=== PATIENT | female | born 1980 | race Caucasian/White ===

== ENCOUNTER 2020-08-02 17:50 | Inpatient (IN) | payer BC, SELFPAY ==
--- NOTE | ~2020-08-02 | XR_ITS ---
EXAMINATION: XR foot RT min 3V DATE: 08/02/2020 18:39 INDICATION: Right foot abscess TECHNIQUE: Dorsoplantar, lateral, and 2 oblique views of the right foot were obtained. COMPARISON: None. FINDINGS: There is plantar soft tissue swelling of the foot. Bone alignment is normal. There is no fr acture. The joint spaces are maintained. No abnormal erosion or osteopenia is identified. IMPRESSION: 1. Plantar soft tissue swelling of the foot without acute osseous abnormality. Reviewed, dictated and finalized at location A. W MACHINE SET UP OPERATOR TOOL
--- NOTE | ~2020-08-02 | MR_ITS ---
EXAMINATION: MR foot RT wo/w con DATE: 08/03/2020 10:17 INDICATION: Right foot infection TECHNIQUE: Magnetic resonance imaging (MRI) of the right fore/mid foot was performed without and with 18 mL Multihance intravenous contrast. Sequences included sagittal T1-weighted FSE, sagittal fluid s ensitive FSE STIR, coronal T2-weighted FS FSE, coronal T1-weighted FSE, axial T2-weighted FS FSE, axi al T1-weighted FSE, axial T1-weighted FS FSE and postcontrast axial and coronal T1-weighted FS FSE. COMPARISON: None FINDINGS: There are 3 regions of susceptibility artifact along the plantar aspect of the forefoot with no evide nt metallic foreign bodies on the prior radiographs likely representing sites of prior debridement/dr yoon. The largest is located plantar to the head of the first metatarsal where there is a small trino ticular region of decreased T1 signal suggesting either scarring or a decompressed abscess or bursal cavity. The second is located plantar to the head of the fifth metatarsal with suggestion of an overl minna linear surgical wound along the skin surface. Finally there is a tiny focus of susceptibility ar tifact centered at the level of the skin surface plantar to the lateral proximal metaphyseal region o f the first metatarsal. No discrete fluid-filled abscess cavities appreciated. There is edema and mil d nonmasslike enhancement throughout the soft tissues along the lateral aspect of the forefoot consis tent with cellulitis. Bone alignment is normal with normal marrow signal. No reactive edema, patholog ic marrow replacing process or fracture. Joint spaces are relatively preserved. Small joint effusion at the first metatarsophalangeal joint without surrounding reactive edema to suggest a septic arthrit is. The flexor and extensor tendons are normal. The Lisfranc ligament complex as well as the collater al ligament complexes at the metatarsophalangeal and visualized interphalangeal joints are normal. IMPRESSION: 1. 3 regions of susceptibility artifact in the plantar soft tissues of the forefoot as detailed above likely representing sites of prior surgical drainage/debridement with no evident residual radiopaque foreign bodies on the prior radiograph and no drainable abscess cavities or osteomyelitis. 2. Nonspecific small joint effusion at the first metatarsophalangeal joint without surrounding reacti ve edema to suggest a septic arthritis. Reviewed, dictated and finalized at location A. ER CARE SOCIAL WORKER IMPRESSION: 1. 3 regions of susceptibility artifact in the plantar soft tissues of the fore foot as detailed above likely representing sites of prior surgical drainage/scottie ridement with no evident residual radiopaque foreign bodies on the prior radiog raph and no drainable abscess cavities or osteomyelitis. 2. Nonspecific small joint effusion at the first metatarsophalangeal joint with out surrounding reactive edema to suggest a septic arthritis.
--- NOTE | 2020-08-02 17:58 | PC.NURSE ---
This patient, Nai Edwards, was admitted to Medical Room 253-01. Patient/family oriented to hospital policies and general routines including ID bracelet, bed and alarms, visiting hours, pain management, procedures, bathroom and other care routines, personal items, smoking policy, room service/diet, and visiting hours. Information on how to activate the Rapid Response Team has been discussed. Patient/Family are encouraged to report perceived risks to care and to ask questions if they do not understand what they are told or what they should do.
--- NOTE | 2020-08-02 18:05 | PM.IMHP ---
H&P: HPI History of Present Illness Date/Time: 08/02/20 18:05 Chief Complaint: abscess and cellulitis Narrative: Nai Edwards is a 40 year old female that presented to my office 3 weeks after last being treated in my office for painful intractable porokeratomas to the plantar aspect of the right foot. The patient had no problems after debridement of the porokeratomas. The patient states that this past Thursday July 30, 2020, she started developing redness to the top of the foot. She went to the [facility] ER and was prescribed Keflex 500mg QID. She did not respond to the antibiotics, she went on to develop an increase in redness pain and recently drainage from the plantar foot near the previously debrided porokeratomas. I performed a bedside I&D I did express scan amount of purulence from the plantar aspect of the foot and packed the wound open to allow drainage. A deep wound culture swab was obtained and sent for cultures. Prior to my seeing the patient relates constitutional symptoms including malaise and chills. The patient was admitted for MRI imaging to evaluate for deep bone infection as well as IV antibitics. Review of Systems Review of Systems: All systems reviewed & are unremarkable except as noted in HPI and below Constitutional: Comments: pain Musculoskeletal: Musculoskeletal: Reports radiating pain into limb Comments: pain and swelling to right foot PMFSH Past Medical History Medical History (Updated 08/02/20 @ 11:53 by Kimani Coleman MD) BMI 29.0-29.9,adult Callus of foot Candidiasis of genitalia in female Cellulitis of right foot Encounter for screening for other viral diseases Encounter for wellness examination in adult Family History Family History (System 05/24/19 @ 10:56 by Melanie Branch) Grandparent Diabetes mellitus Family history of malignant neoplasm Family history of malignant neoplasm of breast Father Hypertension Mother Patient's mother is in good health Sibling Patient's brother is in good health Social History Social History Years smoked: 20 Smoking status: Current every day smoker Tobacco type: cigarettes Alcohol intake: current Drinks per week: 6 Substance use: never Substance use type: does not use Meds Home Medications and Allergies Home Medications Medication Instructions Recorded Confirmed Type alprazolam 0.25 mg tablet 0.25 mg PO TID PRN #30 tablet 02/27/20 08/02/20 Rx zolpidem 5 mg tablet 5 mg PO . q.h.s. PRN #30 tablet 02/27/20 08/02/20 Rx bupropion HCl 150 mg 24 hr tablet, 150 mg PO QAM #90 tablet 04/02/20 08/02/20 Rx extended release escitalopram oxalate 10 mg tablet 10 mg PO DAILY #30 tablet 07/31/20 08/02/20 Rx dextroamphetamine-amphetamine 20 mg PO DAILY PRN 08/02/20 08/02/20 History [Adderall] fluconazole 150 mg tablet 150 mg PO DAILY #2 tablet 08/02/20 08/02/20 Rx Allergies Allergy/AdvReac Type Severity Reaction Status Date / Time amoxicillin Allergy Unknown Nausea Verified 05/24/19 10:56 Penicillins Allergy Unknown Rash Verified 05/24/19 10:56 Exam Extrem: Ankle/foot/toe images: 1. 3cm incision plantar to the fifth metatarsal head tracking medially to the plantar subcutaneus region of the central aspect of the midfoot. Erythema and calor present to the dorsal lateral and plantar lateral forefoot and centralmidfoot Assessment and Plan Additional Plan Abscess/cellulitis to the right foot s/p in office I&D packed open at approximately 5pm late this afternoon, 08/02/2020 Will order repeat deep wound culture and sensitivities by floor nurses Ordered CBC with diff, ESR, CRP daily Empirical IV antibiotics will be necessary until cellulitis fully resolves MRI will be ordered to assess extent of infection I will round on the patient tomorrow morning to evaluate improvement/read MRI report Appreciate hospitalist help with medical management, Dr. Day
[2020-08-02 18:16] VITALS: BMI 29.6
[2020-08-02 18:21] LABS: Basophils Percent Auto 0.4 % (0.2-1.2); Eosinophils Absolute Auto 0.2 K/mm3 (0-0.3); Eosinophils Percent Auto 1.4 % (0-4.4); Hematocrit 44.6 % (37.0-47.0); Hemoglobin 15.2 g/dL (12.0-15.0); Immature Granulocyte Absolute 0.03 K/mm3 (0.00-0.031); Immature Granulocyte Percent A 0.3 % (0-0.5); Lymphocytes Absolute Auto 2.66 K/mm3 (0.9-3.2); Lymphocytes Percent Auto 23.4 % (18.3-44.2); Mean Corpuscular HGB Conc 34.1 g/dl (32-36); Mean Corpuscular Hemoglobin 32.1 pg (26-34); Mean Corpuscular Volume 94.1 fl (80-100); Mean Platelet Volume 9.7 fl (7.4-10.4); Monocytes Absolute Auto 0.6 K/mm3 (0.1-0.6); Monocytes Percent Auto 5.1 % (2.6-8.5); Neutrophils Absolute Auto 7.9 K/mm3 (1.3-6.7); Neutrophils Percent Auto 69.4 % (45.5-73.1); Platelet Count Result 274 k/mm3 (150-375); Red Blood Count 4.74 M/mm3 (4.2-5.4); Red Cell Distribution Width 12.5 % (11.5-14.5); White Blood Count 11.4 K/mm3 (4.5-10.0)
--- NOTE | 2020-08-02 18:30 | PM.IMHP ---
H&P: HPI History of Present Illness Date/Time: 08/02/20 18:30 Chief Complaint: Right foot wound. Narrative: This is a 40-year-old female who is being directly admitted from Dr. Gallego office for treatment of a right foot infection. She has had a callus on the plantar aspect of her right 5th metatarsal head for quite some time and over the last month or so it ?has been giving me problems.? She was seen by Dr. Gallego sometime last month and it sounds as though the callus was shaved and tended to at that time. Due to sensitivity in the area with standing, she wore a metatarsal bar to cushion the area which seemed to help however caused a lot of sweating about the foot. Sometime last week she began having increasing discomfort at the site with erythema and edema that quickly spread onto the dorsum of the foot. She was prescribed cephalexin after a visit to the emergency department at [facility] in [place] on 07/31/2020. The erythema has improved significantly however over the last day or so she has developed increasing discomfort on the ball of the right foot. She was seen in the office today and the callus was lanced with the expression of a pretty significant amount of purulence drainage, prompting her admission today. She denies fever, chills, and sweats. No nausea or vomiting. No history of MRSA or diabetes. Review of Systems Review of Systems: Narrative: Twelve systems were reviewed with pertinent positives and negatives as per HPI. Except as documented, all other systems were reviewed and are negative. [facility] Past Medical History Medical History Anxiety Attention deficit disorder Benign schwannoma Left foot. Tobacco use Surgical History Surgical History (Updated 08/02/20 @ 21:34 by Emily Gordon PA-C) History of left knee surgery X3; OATS procedure and arthroscopy. Family History Family History Grandparent Diabetes mellitus Family history of malignant neoplasm Family history of malignant neoplasm of breast Father Hypertension Mother Patient's mother is in good health Sibling Patient's brother is in good health Social History Social History (Updated 08/02/20 @ 21:34 by Emily Gordon PA-C) Social History: The patient lives in [place] with her 10-year-old daughter. She works at the [employer] in [place]. Smokes about 5 cigarettes a day and has for 20 years. Consumes 2 alcoholic beverages a week. No illicit substance use. She designates her brother Miguel Flores as her surrogate decision maker and she wishes to be a full code. Years smoked: 20 Smoking status: Current every day smoker Tobacco type: cigarettes Alcohol intake: current Drinks per week: 2 Substance use: never Substance use type: does not use Gender identity (if verbalized by the patient): Female Spiritual care concerns: Yes Meds Home Medications and Allergies Home Medications Medication Instructions Recorded Confirmed Type alprazolam 0.25 mg tablet 0.25 mg PO TID PRN #30 tablet 02/27/20 08/02/20 Rx zolpidem 5 mg tablet 5 mg PO . q.h.s. PRN #30 tablet 02/27/20 08/02/20 Rx bupropion HCl 150 mg 24 hr tablet, 150 mg PO QAM #90 tablet 04/02/20 08/02/20 Rx extended release escitalopram oxalate 10 mg tablet 10 mg PO DAILY #30 tablet 07/31/20 08/02/20 Rx dextroamphetamine-amphetamine 20 mg PO DAILY PRN 08/02/20 08/02/20 History [Adderall] fluconazole 150 mg tablet 150 mg PO DAILY #2 tablet 08/02/20 08/02/20 Rx Allergies Allergy/AdvReac Type Severity Reaction Status Date / Time amoxicillin [From Augmentin] Allergy Vomiting Verified 08/02/20 18:27 clavulanic acid Allergy Vomiting Verified 08/02/20 18:27 [From Augmentin] Exam Narrative: Exam Narrative: General: Well-developed female sitting up in bed in no distress. Weight: 91 kg. BMI: 29.6. HEENT: PERRL, EOMI. Sclerae anicteric. Oral mu
[2020-08-02 18:36] LABS: CRP 1.5 mg/dL (<1.0)
[2020-08-02 18:49] LABS: Erythrocyte Sedimentation Rate 16 mm/hr (0-20)
[2020-08-02 18:50] LABS: Alanine Aminotransferase 30 U/L (4-35); Albumin Level 4.4 g/dL (3.5-5.1); Alkaline Phosphatase 70 U/L (38-126); Anion Gap 6 mmol/L (8-16); Aspartate Amino Transferase 28 U/L (14-36); Bilirubin,Total 0.7 mg/dL (0.2-1.3); Blood Urea Nitrogen 17 mg/dL (7-17); Calcium 8.9 mg/dL (8.4-10.2); Carbon Dioxide 28 mmol/L (22-30); Chloride 103 mmol/L (98-107); Estimated Glomerular Filt Rate > 60; Glucose 93 mg/dL (65-105); Potassium 3.8 mmol/L (3.4-5.0); Sodium 137 mmol/L (137-145)
[2020-08-02] MEDS: FLUCONAZOLE 100 MG TABLET PO (20:01)
[2020-08-02] MEDS: HYDROcodone/acetaminophen (*CRX) 5-325 MG TABLET 1 TAB PO (20:08)
[2020-08-02 22:00] VITALS: BP 116/60; PULSE 96; RESP 20; TEMP 36.4; O2SAT 98
[2020-08-02] MEDS: MORPHINE SULFATE (*CRX) 2 MG/ML INJ IV PUSH (23:19)
[2020-08-03 06:00] VITALS: BP 107/58; PULSE 71; RESP 21; TEMP 36.3; O2SAT 100
[2020-08-03] MEDS: buPROPion HCL XL (24 HR) 150 MG TABCR PO (08:29)
[2020-08-03] MEDS: ESCITALOPRAM OXALATE 10 MG TABLET PO (08:29)
[2020-08-03] MEDS: HYDROcodone/acetaminophen (*CRX) 5-325 MG TABLET 1 TAB PO (08:29)
[2020-08-03 09:11] LABS: Basophils Percent Auto 0.5 % (0.2-1.2); Eosinophils Absolute Auto 0.3 K/mm3 (0-0.3); Eosinophils Percent Auto 4.2 % (0-4.4); Hematocrit 40.6 % (37.0-47.0); Hemoglobin 13.6 g/dL (12.0-15.0); Immature Granulocyte Absolute 0.02 K/mm3 (0.00-0.031); Immature Granulocyte Percent A 0.3 % (0-0.5); Lymphocytes Absolute Auto 2.08 K/mm3 (0.9-3.2); Lymphocytes Percent Auto 31.3 % (18.3-44.2); Mean Corpuscular HGB Conc 33.5 g/dl (32-36); Mean Corpuscular Hemoglobin 31.6 pg (26-34); Mean Corpuscular Volume 94.4 fl (80-100); Mean Platelet Volume 9.7 fl (7.4-10.4); Monocytes Absolute Auto 0.5 K/mm3 (0.1-0.6); Monocytes Percent Auto 6.9 % (2.6-8.5); Neutrophils Absolute Auto 3.8 K/mm3 (1.3-6.7); Neutrophils Percent Auto 56.8 % (45.5-73.1); Platelet Count Result 242 k/mm3 (150-375); Red Cell Distribution Width 12.4 % (11.5-14.5); White Blood Count 6.7 K/mm3 (4.5-10.0)
[2020-08-03 09:27] LABS: Anion Gap 2 mmol/L (8-16); Blood Urea Nitrogen 13 mg/dL (7-17); CRP 1.1 mg/dL (<1.0); Calcium 8.5 mg/dL (8.4-10.2); Carbon Dioxide 31 mmol/L (22-30); Chloride 103 mmol/L (98-107); Estimated CRCL calculation 111 ml/min; Estimated Glomerular Filt Rate > 60; Glucose 101 mg/dL (65-105); Potassium 4.1 mmol/L (3.4-5.0); Sodium 136 mmol/L (137-145)
[2020-08-03] MEDS: MORPHINE SULFATE (*CRX) 2 MG/ML INJ IV PUSH ×2 (12:54→23:06)
[2020-08-03 14:00] VITALS: BP 107/61; PULSE 71; RESP 14; TEMP 36.5; O2SAT 97
[2020-08-03] MEDS: SILVERGEL (ELTA) 45 ML 1 APPLIC TOPICAL (14:10)
--- NOTE | 2020-08-03 15:07 | WPDPN ---
Progress Note: A&P Additional Plan Cellulitis nearly fully resoled- MRI says no abscess, no septic joint, no osteomyelitis. Recommend IV antibiotic until discharged tomorrow morning. The I&D site already almost epithelialized. No drainage noted. No fluctuance. Redressed with Kerlix roll and skin tape. Will be stable for discharge from podiatry standpoint with oral antibiotics, awaiting deep wound culture and sensitivity results from [facility] department. Dr. Gallego Objective Data Vital Signs Vital Signs: Vital Signs - 24 hr 08/02/20 22:00 08/03/20 06:00 08/03/20 14:00 Temperature 36.4 C 36.3 C L 36.5 C Pulse Rate 96 71 71 Respiratory Rate 20 21 H 14 Blood Pressure 116/60 107/58 L 107/61 Pulse Oximetry 98 100 97 Intake/Output Intake/Output: Intake & Output 07/31/20 08/01/20 08/02/20 08/03/20 23:59 23:59 23:59 23:59 Intake Total 550 1510 Balance 550 1510 Meds/Results Medications: Active Medications Generic Name Dose Route Start Last Admin Trade Name Freq PRN Reason Stop Dose Admin Acetaminophen 650 mg 08/02/20 18:18 Acetaminophen 325 Mg Tablet PO Q6H PRN Mild Pain (1-3) or Fever Hydrocodone Bitart/Acetaminophen 1 tab 08/02/20 18:18 08/03/20 08:29 Hydrocodone/Acetaminophen (*Crx) 5-325 Mg Tablet PO 1 tab Q6H PRN Administration Pain Rated 4-6 Bupropion HCl 150 mg 08/03/20 09:00 08/03/20 08:29 Bupropion Hcl Xl (24 Hr) 150 Mg Tabcr PO 150 mg QAM BONILLA Administration Escitalopram Oxalate 10 mg 08/03/20 09:00 08/03/20 08:29 Escitalopram Oxalate 10 Mg Tablet PO 10 mg DAILY BONILLA Administration Cefazolin Sodium 1 gm in 50 mls @ 100 mls/hr 08/02/20 22:00 08/03/20 07:33 Ancef 1 Gm/D5w 50 Ml Pm IVPB Infused Q8H BONILLA Infusion Vancomycin HCl 1,500 mg in 500 mls @ 333.333 mls/hr 08/03/20 08:00 08/03/20 10:01 Vancomycin 1,500 Mg/D5w 500 Ml IVPB Infused Q12H BONILLA Infusion Morphine Sulfate 2 mg 08/02/20 18:18 08/03/20 12:54 Morphine Sulfate (*Crx) 2 Mg/Ml Inj IV PUSH 2 mg Q4H PRN Administration Pain Rated 7-10 Silver Nitrate 1 applic 08/03/20 09:00 08/03/20 14:10 Silvergel (Elta) 45 Ml TOPICAL 1 applic DAILY BONILLA Administration Radiology Results: ITS Impressions Foot X-Ray 08/02/20 20:44 IMPRESSION: 1. Plantar soft tissue swelling of the foot without acute osseous abnormality. Foot MRI 08/03/20 10:19 IMPRESSION: 1. 3 regions of susceptibility artifact in the plantar soft tissues of the forefoot as detailed above likely representing sites of prior surgical drainage/debridement with no evident residual radiopaque foreign bodies on the prior radiograph and no drainable abscess cavities or osteomyelitis. 2. Nonspecific small joint effusion at the first metatarsophalangeal joint without surrounding reactive edema to suggest a septic arthritis. Labs Labs: Laboratory Results - last 24 hr 08/02/20 08/02/20 08/02/20 18:16 18:16 18:16 WBC 11.4 H RBC 4.74 Hgb 15.2 H Hct 44.6 MCV 94.1 MCH 32.1 MCHC 34.1 RDW 12.5 Plt Count 274 MPV 9.7 Immature Gran % (Auto) 0.3 Neut % (Auto) 69.4 Lymph % (Auto) 23.4 Bowie % (Auto) 5.1 Eos % (Auto) 1.4 Baso % (Auto) 0.4 Lymph # (Auto) 2.66 Bowie # (Auto) 0.6 Eos # (Auto) 0.2 Baso # (Auto) 0.0 Abs Immat Gran (auto) 0.03 Absolute Neuts (auto) 7.9 H Absolute Nucleated RBC 0.0 Nucleated RBC % 0.0 ESR 16 Sodium 137 Potassium 3.8 Chloride 103 Carbon Dioxide 28 Anion Gap 6 L BUN 17 Creatinine 0.90 Estim Creat Clear Calc Not Reportable Estimated GFR > 60 Glucose 93 Calcium 8.9 Total Bilirubin 0.7 AST 28 ALT 30 Alkaline Phosphatase 70 C-Reactive Protein 1.5 H Total Protein 8.0 Albumin 4.4 08/03/20 08/03/20 08:53 08:53 WBC 6.7 RBC 4.30 Hgb 13.6 Hct 40.6 MCV 94.4 MCH 31.6 MCHC
--- NOTE | 2020-08-03 15:17 | PM.IMPN ---
Progress Note: A&P Assessment and Plan (1) Cellulitis of right foot: Code(s): L03.115 - Cellulitis of right lower limb Status: Acute Assessment and Plan: She developed a callus of her right foot at lateral aspect of the 5th metatarsal. She then developed erythema and edema of the dorsum of the foot. She initially was evaluated at ED in [place] and started on PO Keflex with no improvement. She was evaluated by Dr. Gallego as an outpatient. Her callus was lanced and purulent fluid was expressed. She was then directly admitted to this facility for IV antibiotics. Her cellulitis has essentially resolved and there is no evidence of edema, erythema, or warmth to the dorsum of the foot. MRI of the right foot did not demonstrate any evidence of abscess or osteomyelitis. Continue IV Ancef and vancomycin appreciate podiatry consult Continue local wound care with silver gel application daily; wound care evaluation appreciated analgesics available as needed for pain (2) Callus of foot: Code(s): L84 - Corns and callosities Status: Acute Assessment and Plan: As above. She had a bedside I&D by Dr. Gallego in which prelim fluid was expressed and the wound was packed. A deep wound culture was obtained at that time. Continue IV antibiotics as above. Plan for discharge tomorrow if continued improvement with PO antibiotics. appreciated podiatry consult. She will need to follow-up as an outpatient in the following week. discussed case with Dr. Gallego via phone and he will monitor her wound cultures and de-escalate antibiotics accordingly (3) Anxiety: Code(s): F41.9 - Anxiety disorder, unspecified Status: Inactive Assessment and Plan: mood is stable at this time. Continue bupropion and escitalopram (4) Tobacco use: Code(s): Z72.0 - Tobacco use Status: Acute Assessment and Plan: patient reports smoking 4-5 cigarettes daily. We had a long discussion regarding the importance of smoking cessation, especially to promote wound healing. I educated her on smoking cessation for 6 minutes. She understands and agrees with need for smoking cessation. She declines nicotine patch. Subjective Date/time seen: 08/03/20 15:17 Interval history: Date of service: 08/03/2020 Nai Edwards is a 40-year-old female with history of continued tobacco abuse, anxiety, and ADD HD who is seen in follow-up for right foot wound. She is doing fairly well at this time. at the time of my encounter, she was also being seen by wound care and having her wound probed. This caused her a significant amount of pain, however she stated that overall, her foot pain was rated 5/10 prior to having the wound probed. she thinks that the area is improving. She denies any further drainage. She states that her erythema and edema have resolved entirely. She denies fever, chills, nausea, vomiting, diarrhea. No headaches, body aches, dizziness, lightheadedness, abdominal pain, chest pain, palpitations, shortness of breath, or cough. She has been eating well. Denies any urinary symptoms. Review of Systems Review of Systems: All systems reviewed & are unremarkable except as noted in HPI and below Exam Narrative: Exam Narrative: Ms. Edwards is A well-nourished, well-appearing 40-year-old female who is lying supine in bed. she appears comfortable and is in NARD. HR 71, BP 107/88, R 21, T 97.3?, 100% on room air Neuro: awake, alert and oriented x4, speech clear, no focal neuro deficits noted HEENMT: normocephalic, atraumatic, EOMI, sclerae anicteric, moist oral mucosa, tongue midline, nares patent Neck: supple, no lymphadenopathy Respiratory: clear to auscultation bilaterally, nonlabored breathing Cardio: regular rate, regular rhythm with S1-S2 Abdomen: nondistended, normoactive bowel sounds, soft, nontender to palpation, no rigidity or guarding Extremities: no ed
[2020-08-03 20:00] VITALS: BP 118/65; PULSE 77; RESP 18; TEMP 36.4; O2SAT 98
[2020-08-03] MEDS: FLUCONAZOLE 100 MG TABLET PO (23:03)
[2020-08-04 04:00] VITALS: BP 101/53; PULSE 73; RESP 18; TEMP 36.2; O2SAT 99
[2020-08-04 07:09] LABS: Hematocrit 42.8 % (37.0-47.0); Hemoglobin 14.3 g/dL (12.0-15.0); Mean Corpuscular HGB Conc 33.4 g/dl (32-36); Mean Corpuscular Hemoglobin 31.8 pg (26-34); Mean Corpuscular Volume 95.1 fl (80-100); Mean Platelet Volume 9.8 fl (7.4-10.4); Platelet Count Result 248 k/mm3 (150-375); Red Cell Distribution Width 12.2 % (11.5-14.5); White Blood Count 6.8 K/mm3 (4.5-10.0)
[2020-08-04 07:59] LABS: Vancomycin Trough 10.6 ug/mL (10.0-20.0)
[2020-08-04] MEDS: buPROPion HCL XL (24 HR) 150 MG TABCR PO (08:40)
[2020-08-04] MEDS: ESCITALOPRAM OXALATE 10 MG TABLET PO (08:40)
[2020-08-04 08:57] LABS: Anion Gap 7 mmol/L (8-16); Blood Urea Nitrogen 18 mg/dL (7-17); CRP 0.7 mg/dL (<1.0); Calcium 8.1 mg/dL (8.4-10.2); Carbon Dioxide 25 mmol/L (22-30); Chloride 103 mmol/L (98-107); Estimated CRCL calculation 127 ml/min; Estimated Glomerular Filt Rate > 60; Glucose 105 mg/dL (65-105); Potassium 4.4 mmol/L (3.4-5.0); Sodium 135 mmol/L (137-145)
--- NOTE | 2020-08-04 09:33 | PM.DS ---
DS: Admitting Diagnosis Admitting Diagnosis Admitting Diagnosis: Right foot cellulitis DS: Discharge Diagnosis Discharge Diagnosis (1) Cellulitis of right foot: Code(s): L03.115 - Cellulitis of right lower limb Status: Acute Assessment and Plan: She developed a callus of her right foot at lateral aspect of the 5th metatarsa quite sometime ago. Approximately 1 week prior to admission, she then developed erythema and edema of the dorsum of the foot. She initially was evaluated at ED in [place] on 08/02 and started on PO Keflex with no improvement. She was evaluated by Dr. Gallego as an outpatient on 08/04 who performed a bedside I&D. Purulent fluid was expressed and wound was packed. She was then directly admitted to this facility for IV antibiotics. Her cellulitis resolved and she had no evidence of edema, erythema, or warmth to the dorsum of the foot. MRI of the right foot did not demonstrate any evidence of abscess or osteomyelitis. she was started on IV Ancef and vancomycin. She was seen in consultation by [facility] [place], Dr. Gallego. wound care team evaluated and recommended application of daily silver gel. She will continue p.o. antibiotics as an outpatient to complete 10 days of Levaquin 750 mg daily and clindamycin 300 mg q8h, per Dr. Gallego recommendations. He will await deep wound culture which was performed in his office and deescalate antibiotics accordingly. (2) Callus of foot: Code(s): L84 - Corns and callosities Status: Acute Assessment and Plan: As above. (3) Anxiety: Code(s): F41.9 - Anxiety disorder, unspecified Status: Inactive Assessment and Plan: Mood remained stable. Continue bupropion and escitalopram (4) Tobacco use: Code(s): Z72.0 - Tobacco use Status: Acute Assessment and Plan: Patient reports smoking 4-5 cigarettes daily. We had a long discussion regarding the importance of smoking cessation, especially to promote wound healing. I educated her on smoking cessation for 6 minutes. She understands and agrees with need for smoking cessation. She declined nicotine patch. DS: Summary Hospital Course Reason for hospitalization: right foot cellulitis Hospital Course: date of admission: 08/02/2020 date of discharge: 08/04/2020 Nai Edwards is a 40-year-old female with history of continued tobacco abuse, anxiety, and ADHD who was directly admitted to the hospitalist service at the direction of [facility] [place], Dr. Gallego, for treatment of right foot cellulitis. Upon arrival, her vital signs were stable, she had minimal leukocytosis, CRP 1.5, and electrolytes stable. her foot x-ray demonstrated plantar soft tissue swelling of the foot without acute osseous abnormality, and her foot MRI showed 3 regions of susceptibility artifact in the plantar soft tissues of the forefoot representing prior drainage without evidence of foreign body, abscess, or osteomyelitis. Please see above for further details. She had significant improvement following IV antibiotics. her pain resolved and she began feeling much better. I discussed the case with Dr. Gallego who felt that transition to p.o. antibiotics would be appropriate. Given her overall improvement, she was determined to no longer require inpatient care and felt to be stable for discharge. We discussed her antibiotic therapy at length. We also discussed worrisome signs and symptoms for which to return and she was educated on her medications. She will need to follow-up with Dr. Gallego next week. She will do light duty at work to limit pressure on the foot. Status at Discharge Functional status at discharge: independent ambulation Overall status at discharge: patient is back to baseline Time Spent with Patient Time attestation: Total time spent providing and/or coordinating discharge services: 45 minutes Time spent: Greater than 30 minutes Exam Narrative: Exam Narrativ
== END 2020-08-04 10:15 | disposition home or self-care (01) | DRG 603 ==
PROVIDERS: Physician Assistant; Admitting Provider Internal Medicine; PCP Podiatrist Foot & Ankle Surgery; Visit Provider Physician Assistant
DX: L03.115 Cellulitis of right lower limb (principal); F41.9 Anxiety disorder, unspecified; F98.8 Other specified behavioral and emotional disorders with onset usually occurring in childhood and adolescence; Z72.0 Tobacco use; L84 Corns and callosities
CPT/HCPCS: 36415; 73630; 73720; 80048; 80053; 80202; 85025; 85027; 85652; 86140; A9270; A9577; J0690; J2270; J3370

== ENCOUNTER 2020-08-08 15:59 | Inpatient (IN) | payer BC, SELFPAY ==
[2020-08-08] VITALS (11 sets, daily range): BP systolic 111–133; BP diastolic 60–84; PULSE 88–112; RESP 12–20; TEMP 36.1–37; O2SAT 96–100; BMI 29.4
--- NOTE | 2020-08-08 11:02 | PC.NURSE ---
SPOKE WITH PT BY PHONE REGARDING SURGERY TODAY. PT DENIES CHANGE IN HEALTH STATUS SINCE DISCHARGED FROM HERE ON 08/04/20 EXCEPT FOR WORSENING WOUND TO RIGHT FOOT.
[2020-08-08] MEDS: LACTATED RINGERS 1,000 ML 30 ML IV CONT (13:05)
--- NOTE | 2020-08-08 13:20 | WPDANESEPPF ---
Anes - Initial Pre Proc Eval Procedure: Operation Date: 08/08/20 14:00 Proposed Procedures p Incision And Drainage Right Foot - Jose Gallego JR, MD Date/Time: 08/08/20 13:20 Surgeon: Jose Gallego JR, MD Pre Op Diagnosis: Abscess Right Foot Patient Data Age: 40 Gender: F Height: 1.75 m Weight: 90.4 kg Last Vital Signs Temp 36.9 C 08/08/20 12:19 Pulse 112 H 08/08/20 12:19 Resp 20 08/08/20 12:19 BP 123/75 08/08/20 12:19 Pulse Ox 100 08/08/20 12:19 Allergies Allergy/AdvReac Type Severity Reaction Status Date / Time amoxicillin [From Augmentin] AdvReac Mild Vomiting Verified 08/08/20 12:55 clavulanic acid AdvReac Mild Vomiting Verified 08/08/20 12:55 [From Augmentin] Home Medications Medication Instructions Recorded Confirmed Type alprazolam 0.25 mg tablet 0.25 mg PO TID PRN #30 tablet 02/27/20 08/08/20 Rx zolpidem 5 mg tablet 5 mg PO . q.h.s. PRN #30 tablet 02/27/20 08/08/20 Rx bupropion HCl 150 mg 24 hr tablet, 150 mg PO QAM #90 tablet 04/02/20 08/08/20 Rx extended release escitalopram oxalate 10 mg tablet 10 mg PO DAILY #30 tablet 07/31/20 08/08/20 Rx dextroamphetamine-amphetamine 20 mg PO DAILY PRN 08/02/20 08/08/20 History [Adderall] Saccharomyces boulardii [Daily 250 mg PO BID #30 cap 08/04/20 08/08/20 Rx Probiotic (S. boulardii)] clindamycin HCl 300 mg PO Q8H #30 cap 08/04/20 08/08/20 Rx levofloxacin 750 mg PO DAILY #10 tablet 08/04/20 08/08/20 Rx silver [Silver-Sept] 1 applic TOPICAL DAILY #45 g 08/04/20 08/08/20 Rx Patient hx anesthesia problems: none Family hx anesthesia problems: none PMFSH Past Medical History Medical History Anxiety Attention deficit disorder Benign schwannoma Left foot. Tobacco use Surgical History Surgical History (Updated 08/02/20 @ 21:34 by Emily Gordon PA-C) History of left knee surgery X3; OATS procedure and arthroscopy. Family History Family History Grandparent Diabetes mellitus Family history of malignant neoplasm Family history of malignant neoplasm of breast Father Hypertension Mother Patient's mother is in good health Sibling Patient's brother is in good health Social History Social History (Updated 08/02/20 @ 21:34 by Emily Gordon PA-C) Social History: The patient lives in [place] with her 10-year-old daughter. She works at the [employer] in [place]. Smokes about 5 cigarettes a day and has for 20 years. Consumes 2 alcoholic beverages a week. No illicit substance use. She designates her brother Miguel Flores as her surrogate decision maker and she wishes to be a full code. Years smoked: 20 Smoking status: Current every day smoker Tobacco type: cigarettes Alcohol intake: current Drinks per week: 2 Substance use: never Substance use type: does not use Gender identity (if verbalized by the patient): Female Spiritual care concerns: Yes Anes - Ranjana Final PreProcedure Day of Procedure 08/08/20 13:20 Patient weight: overweight Heart: regular rate and rhythm Lungs: clear to auscultation and normal air movement Airway: Mallampati scale class II Neurological: alert and oriented Last oral intake: >/= 8 hours ASA classification: II Emergent: no Anesthetic plan: proceed Anesthesia type and monitoring: general LMA and standard monitoring Informed Consent: The patient's anesthetic plan and its attendant risks and benefits were discussed with the patient/family/POA. Questions were solicited and answers provided to the satisfaction of the patient/family/POA.
--- NOTE | 2020-08-08 13:49 | WPDHPUPDATE1 ---
History and Physical Update Update Date/Time: 08/08/20 13:49 History and Physical has been reviewed, including an updated exam of the patient. There are NO changes in the patient's condition. Risks, benefits, and alternatives have been discussed and questions answered. Patient agrees to proceed with procedure.
[2020-08-08] MEDS: CLINDAMYCIN 900 MG/D5W 50 ML 900 MG/50 ML PIGGYBACK 50 MG IVPB (14:14)
[2020-08-08] MEDS: fentaNYL CITRATE INJ (*CRX) 100 MCG/2 ML VIAL 25 MCG IV PUSH ×5 (15:05→15:47)
--- NOTE | 2020-08-08 15:05 | SUR.OPER ---
1 gram Vancomycin powder added to cement beads for use on sterile field
[2020-08-08] MEDS: LIDOCAINE HCL 2% LOCAL INJ 20 ML VIAL INFILTRATE (15:07)
--- NOTE | 2020-08-08 15:15 | SUR.PHASEI ---
1513 - Dr. Gallego called in regards to pt's gram stain results. no orders received at this time.
--- NOTE | 2020-08-08 16:05 | PC.NURSE ---
Patient transferred from OR to room 343. Patient oriented to room policies. Belongings with patient.
--- NOTE | 2020-08-08 16:26 | P.OP_ITS ---
Procedure Note - Detailed Date of procedure: 08/08/20 Pre-op diagnosis: Abscess Right Foot Post-op diagnosis: same Procedure performed: Incision and drainage right foot to subcutaneous layer Implants: [employer] PMMA beads Anesthesia: MAC and local Surgeon: Jose Gallego JR, DPM Estimated blood loss (mL): 1 Drains: No Packing: Yes Pathology: yes (1. Deep wound culture swab sent for aerobic and anaerobic culture and sensitivity with stat Gram stain 2. Encapsulated cyst like lesion resected and sent for gross and histo) Complications: No immediate complications Condition: stable Disposition: observation Findings: Under mild sedation, the patient was brought to the operating room, placed on the operating table in the supine position. A pneumatic ankle tourniquet was placed about the patient's ankle. Following general anesthesia, I performed a proximal fifth metatarsal Rocha Block. The foot was then scrubbed, prepped, and draped in the usual aseptic manner. An Esmarch bandage was then used to examine the patient's foot and pneumatic ankle tourniquet was then inflated. Surgery began in the following manner. Attention was directed to the plantar aspect of the fifth metatarsal head of the foot where two converging semi elliptical incisions were made about the healed incision made previously. The incision was approximately 3cm in length. The incision was continued deep down through the subcutaneous tissues using sharp and blunt dissection. All bleeders were cauterized as necessary. I continued my dissection laterally where an encapsulated cyst like mass was noted with viscous white drainage expressed, approximately 1cc of this exudate was evacuated. The entire cyst was excised and sent for gross and histopathology. I did take a deep wound culture swab and sent for aerobic and anaerobic culture and sensitivity. No remaining necrotic tissue was noted, no other abscess was noted. The wound only extended to the subcutaneous layer only. I did use pulsed lavage to flush the wound with 3L of sterile saline. Next, I packed the wound with [employer] antibiotics beads mixed with 1g of Vancomycin. I did leave the incision site open and packed with 1/2 Iodoform gauze. I dressed with adaptic, 4x4 gauze, Kerlix and MICHAEL Wrap. The pneumatic ankle tourniquet was then deflated and a prompt hyperemic response noted to all digits of the affected foot. A surgical shoe was then applied. The patient did very well with the procedure and the anesthesia. The patient was transferred to the recovery room with vital signs stable and vascular status intact to all toes of the affected foot. The patient will be admitted for IV antibiotcs and for an infectious disease consult to help with antibiotic management. The patient will follow the following instructions: 1. Keep the dressing clean, dry, and intact. Use a cast protector bag with showers. 2. The patient should use a surgical shoe for ambulation postoperatively. 3. The patient should be on bedrest with bathroom priviliges and elevate the affected foot when at rest. 4. IDr. Gallego, will change the dressing the day after surgery.
[2020-08-08] MEDS: SACCHAROMYCES BOULARDII 250 MG CAPSULE PO (17:11)
[2020-08-08] MEDS: HYDROcodone/acetaminophen (*CRX) 7.5-325 MG TABLET 1 TAB PO (17:11)
[2020-08-08 17:33] LABS: CRP 0.7 mg/dL (<1.0)
[2020-08-08 17:39] LABS: Erythrocyte Sedimentation Rate 10 mm/hr (0-20)
--- NOTE | 2020-08-08 18:00 | PM.IMHP ---
H&P: HPI History of Present Illness Date/Time: 08/08/20 18:00 Chief Complaint: Right foot abscess. Narrative: This is a 40-year-old female who is being directly admitted to the hospital from PACU status post incision and drainage of a right foot infection with a resection of an capsulated cyst-like lesion. She is known to myself and the hospitalist service with a recent admission on 08/02/2020 at which time she was treated for a right foot infection which developed not long after having a callus shaved off the foot. After receiving 2 days of IV antibiotics she was discharged home with levofloxacin as her wound culture reportedly grew out E coli. She seemed to be doing well up until the last day or so when she began having increasing pain on the ball of the right foot. In the last 24 hour she has also noticed a small, raised erythematous area which has popped up in the same region, very tender to palpation. She is now status post incision and drainage per Dr. Gallego as detailed above. She received a block during surgery and does not have any significant pain at this time. no fever, chills, or sweats today. Appetite has been good. No nausea or vomiting. Review of Systems Review of Systems: Narrative: Twelve systems were reviewed with pertinent positives and negatives as per HPI. Except as documented, all other systems were reviewed and are negative. [facility] Past Medical History Medical History Anxiety Attention deficit disorder Benign schwannoma Left foot. Tobacco use Surgical History Surgical History History of left knee surgery X3; OATS procedure and arthroscopy. Family History Family History Grandparent Diabetes mellitus Family history of malignant neoplasm Family history of malignant neoplasm of breast Father Hypertension Mother Patient's mother is in good health Sibling Patient's brother is in good health Social History Social History Social History: The patient lives in [place] with her 10-year-old daughter. She works at the [employer] in [place]. Smokes about 5 cigarettes a day and has for 20 years. Consumes 2 alcoholic beverages a week. No illicit substance use. She designates her brother Miguel Flores as her surrogate decision maker and she wishes to be a full code. Years smoked: 20 Smoking status: Current every day smoker Tobacco type: cigarettes Alcohol intake: current Drinks per week: 2 Substance use: never Substance use type: does not use Gender identity (if verbalized by the patient): Female Spiritual care concerns: Yes Meds Home Medications and Allergies Home Medications Medication Instructions Recorded Confirmed Type alprazolam 0.25 mg tablet 0.25 mg PO TID PRN #30 tablet 02/27/20 08/08/20 Rx zolpidem 5 mg tablet 5 mg PO . q.h.s. PRN #30 tablet 02/27/20 08/08/20 Rx bupropion HCl 150 mg 24 hr tablet, 150 mg PO QAM #90 tablet 04/02/20 08/08/20 Rx extended release escitalopram oxalate 10 mg tablet 10 mg PO DAILY #30 tablet 07/31/20 08/08/20 Rx dextroamphetamine-amphetamine 20 mg PO DAILY PRN 08/02/20 08/08/20 History [Adderall] Saccharomyces boulardii [Daily 250 mg PO BID #30 cap 08/04/20 08/08/20 Rx Probiotic (S. boulardii)] clindamycin HCl 300 mg PO Q8H #30 cap 08/04/20 08/08/20 Rx levofloxacin 750 mg PO DAILY #10 tablet 08/04/20 08/08/20 Rx silver [Silver-Sept] 1 applic TOPICAL DAILY #45 g 08/04/20 08/08/20 Rx Allergies Allergy/AdvReac Type Severity Reaction Status Date / Time amoxicillin [From Augmentin] AdvReac Mild Vomiting Verified 08/08/20 12:55 clavulanic acid AdvReac Mild Vomiting Verified 08/08/20 12:55 [From Augmentin] Vital Signs Vital Signs - 24 hr 08/08/20 12:19 08/08/20 14:57 08/08/20 15:05 Temperature 98.5 F 97.2 F L Pulse Rate 11
[2020-08-08] MEDS: MORPHINE SULFATE (*CRX) 2 MG/ML INJ IV PUSH (21:58)
[2020-08-09] MEDS: HYDROcodone/acetaminophen (*CRX) 5-325 MG TABLET 1 TAB PO (00:17)
[2020-08-09] MEDS: MORPHINE SULFATE (*CRX) 2 MG/ML INJ IV PUSH ×2 (03:28→11:09)
[2020-08-09 05:36] VITALS: BP 107/49; PULSE 69; RESP 12; TEMP 36.6; O2SAT 98
[2020-08-09 06:12] LABS: Hematocrit 40.9 % (37.0-47.0); Hemoglobin 14.1 g/dL (12.0-15.0); Mean Corpuscular HGB Conc 34.5 g/dl (32-36); Mean Corpuscular Hemoglobin 32.5 pg (26-34); Mean Corpuscular Volume 94.2 fl (80-100); Platelet Count Result 280 k/mm3 (150-375); Red Blood Count 4.34 M/mm3 (4.2-5.4); White Blood Count 10.1 K/mm3 (4.5-10.0)
[2020-08-09 06:28] LABS: Alanine Aminotransferase 23 U/L (4-35); Albumin Level 3.5 g/dL (3.5-5.1); Alkaline Phosphatase 54 U/L (38-126); Anion Gap 0 mmol/L (8-16); Aspartate Amino Transferase 24 U/L (14-36); Bilirubin,Total 0.3 mg/dL (0.2-1.3); Blood Urea Nitrogen 17 mg/dL (7-17); Calcium 8.5 mg/dL (8.4-10.2); Carbon Dioxide 32 mmol/L (22-30); Chloride 103 mmol/L (98-107); Estimated CRCL calculation 97 ml/min; Estimated Glomerular Filt Rate > 60; Glucose 102 mg/dL (65-105); Potassium 4.1 mmol/L (3.4-5.0); Sodium 135 mmol/L (137-145)
[2020-08-09 07:34] LABS: CRP 0.5 mg/dL (<1.0)
[2020-08-09 07:56] LABS: Erythrocyte Sedimentation Rate 9 mm/hr (0-20)
--- NOTE | 2020-08-09 07:58 | WPDANESPN ---
Anes - Prog Note Post-Op Date/Time: 08/09/20 07:58 Cardiovascular status: normal Respiratory status: normal Airway patency: baseline Mental status: baseline Post-Op hydration status: normal Vital Signs: Last Vital Signs Temp 36.6 C 08/09/20 05:36 Pulse 69 08/09/20 05:36 Resp 12 08/09/20 05:36 BP 107/49 L 08/09/20 05:36 Pulse Ox 98 08/09/20 05:36 Pain Score (VAS): 0 I/O: Intake & Output 08/08/20 08/08/20 08/09/20 15:59 23:59 07:59 Intake Total 50 150 500 Balance 50 150 500 Laboratory Tests 08/09/20 05:33 08/09/20 05:33 08/08/20 08/08/20 08/09/20 17:12 17:12 05:33 WBC 10.1 H RBC 4.34 Hgb 14.1 Hct 40.9 MCV 94.2 MCH 32.5 MCHC 34.5 RDW 12.0 Plt Count 280 MPV 10.0 ESR 10 Sodium Potassium Chloride Carbon Dioxide Anion Gap BUN Creatinine Estim Creat Clear Calc Estimated GFR Glucose Calcium Total Bilirubin AST ALT Alkaline Phosphatase C-Reactive Protein 0.7 Total Protein Albumin 08/09/20 08/09/20 08/09/20 05:33 05:33 05:33 WBC RBC Hgb Hct MCV MCH MCHC RDW Plt Count MPV ESR 9 Sodium 135 L Potassium 4.1 Chloride 103 Carbon Dioxide 32 H Anion Gap 0 L BUN 17 Creatinine 0.80 Estim Creat Clear Calc 97 Estimated GFR > 60 Glucose 102 Calcium 8.5 Total Bilirubin 0.3 AST 24 ALT 23 Alkaline Phosphatase 54 C-Reactive Protein 0.5 Total Protein 6.0 L Albumin 3.5 Microbiology 08/08/20 14:34 Foot Right Gram Stain - Final Post-procedural complaints: none Patient Feedback: Patient satisfied with anesthetic care.
[2020-08-09 08:00] VITALS: PULSE 69; RESP 12; O2SAT 98
[2020-08-09] MEDS: SACCHAROMYCES BOULARDII 250 MG CAPSULE PO ×2 (08:00→17:02)
[2020-08-09] MEDS: buPROPion HCL XL (24 HR) 150 MG TABCR PO (08:00)
[2020-08-09] MEDS: ESCITALOPRAM OXALATE 10 MG TABLET PO (08:01)
[2020-08-09] MEDS: HYDROcodone/acetaminophen (*CRX) 7.5-325 MG TABLET 1 TAB PO ×3 (09:41→21:22)
[2020-08-09] MEDS: ALPRAZolam (*CRX) 0.25 MG TABLET PO (11:45)
--- NOTE | 2020-08-09 12:48 | PM.IMPN ---
Progress Note: A&P Assessment and Plan (1) Abscess of right foot: Code(s): L02.611 - Cutaneous abscess of right foot Status: Acute Assessment and Plan: She developed a callus at the plantar surface of the 5th metatarsal head on the right foot and underwent shaving 4 weeks prior to admission. She subsequently developed cellulitis and was treated with PO keflex outpatient. She saw Dr. Gallego and underwent I&D outpatient 08/04/20 and was immediately admitted for IV antibiotics (vancomycin and ancef) from 08/02-08/04. She was discharged on PO levaquin and clindamycin for 10 days. She subsequently returned to Dr. Gallego's office 08/08/20 after she noticed recurrent subcutaneous nodule that was painful and erythematous and underwent I&D 08/08/[address] Gallego in the OR. Deep wound culture swab was sent for culture and sensitivities and the encapsulated cyst-like lesion was resected and sent for gross and histo. Management per Dr. Gallego and will defer wound care to Dr. Gallego Infectious disease is following for antibiotic recommendations which are greatly appreciated. senior living IV antibiotics are not anticipated but decision will be deferred to infectious disease. Continue IV levaquin and adjust pending cultures if necessary. Cultures are pending, await culture results and tailor antibiotics appropriately Continue analgesics as needed. Will add toradol as she reports that the norco and morphine are not sufficient. Continue to elevate the RLE Add lovenox for DVT prophylaxis (2) Cellulitis of right foot: Code(s): L03.115 - Cellulitis of right lower limb Status: Acute Assessment and Plan: Plan as above. (3) Anxiety: Code(s): F41.9 - Anxiety disorder, unspecified Status: Acute Assessment and Plan: Chronic and stable. Continue alprazolam as needed (4) Tobacco use: Code(s): Z72.0 - Tobacco use Status: Acute Assessment and Plan: She is currently smoking 5 cigarettes per day and has smoked for 20 years. She needs to quit smoking immediately. This is especially imperative for wound healing and overall cardiovascular health. Continue to encourage smoking cessation Subjective Date/time seen: 08/09/20 12:48 Mrs. Edwards is a 40 y.o. female with PMH significant for anxiety, attention deficit disorder, schwannoma, and continued tobacco use who is seen in follow-up s/p incision and drainage of a right foot infection with resection of a capsulated cyst-like lesion. She is doing okay today but still having significant pain, 10/10, in the right foot following surgery and has only slept 2 hours due to pain. She states that norco causes her to be very energized and she cannot sleep and the morphine helps but does not last long enough. Her appetite is good and she has no nausea or vomiting. She has no subjective fever or chills and notes no erythema of the foot during dressing change with Dr. Gallego today. She has no chest pain or dyspnea. She was able to ambulate on the heel. She has not had a bowel movement while hospitalized but this is not unusual for her and she does not feel constipated. She has no voiding concerns. Review of Systems Review of Systems: All systems reviewed & are unremarkable except as noted in HPI and below Exam Narrative: Exam Narrative: General: Pleasant, well-developed, and well-nourished 40 y.o. female lying semi-recumbent in bed watching TV in no acute distress with RLE elevated. HEENMT: Normocephalic and atraumatic. Sclera anicteric. Conjunctivae without injection or exudate. EOMI. Oral mucosa moist. Neck: Supple without lymphadenopathy or masses. Cardiac: Regular rate and rhythm. S1 and S2 normal. No murmur appreciated. Lungs: Effort normal. Lungs are clear to auscultation bilaterally. Abdomen: Bowel sounds normoactive. Abdomen is soft, non-distended, and non-tender. Extremities: Warm and well-perfused. No si
--- NOTE | 2020-08-09 12:57 | WPDINFPN2 ---
Progress Note: A&P Assessment and Plan (1) Cellulitis of right foot: Code(s): L03.115 - Cellulitis of right lower limb Status: Acute Additional Plan Cellulitis of R foot REC Get full results of office culture, new culture also in process, should not need IV therapy after discharge unless cultures demand Subjective Date/time seen: 08/09/20 12:57 Objective Data Vital Signs Vital Signs: Vital Signs - 24 hr 08/08/20 14:57 08/08/20 15:05 08/08/20 15:20 Temperature 36.2 C L Pulse Rate 102 H 99 97 Respiratory Rate 18 14 14 Blood Pressure 128/69 133/84 133/84 Pulse Oximetry 100 97 97 08/08/20 15:35 08/08/20 15:50 08/08/20 16:10 Temperature 36.3 C L Pulse Rate 89 97 91 Respiratory Rate 12 16 16 Blood Pressure 122/68 122/68 130/63 Pulse Oximetry 100 96 100 08/08/20 16:25 08/08/20 16:55 08/08/20 18:16 Temperature 36.1 C L 36.1 C L 36.2 C L Pulse Rate 88 99 89 Respiratory Rate 16 18 18 Blood Pressure 123/72 132/74 111/60 Pulse Oximetry 99 97 97 08/08/20 19:45 08/09/20 05:36 08/09/20 08:00 Temperature 37.0 C 36.6 C Pulse Rate 91 69 69 Respiratory Rate 14 12 12 Blood Pressure 125/64 107/49 L Pulse Oximetry 96 98 98 Intake/Output Intake/Output: Intake & Output 08/06/20 08/07/20 08/08/20 08/09/20 23:59 23:59 23:59 23:59 Intake Total 200 740 Output Total 600 Balance 200 140 Meds/Results Medications: Active Medications Generic Name Dose Route Start Last Admin Trade Name Freq PRN Reason Stop Dose Admin Acetaminophen 500 mg 08/08/20 15:59 Acetaminophen 500 Mg Tablet PO Q6H PRN Mild Pain (1-3) or Fever Hydrocodone Bitart/Acetaminophen 1 tab 08/09/20 09:33 08/09/20 09:41 Hydrocodone/Acetaminophen (*Crx) 7.5-325 Mg Tablet PO 1 tab Q4H PRN Administration Pain Rated 4-6 Alprazolam 0.25 mg 08/08/20 15:59 08/09/20 11:45 Alprazolam (*Crx) 0.25 Mg Tablet PO 0.25 mg TID PRN Administration anxiety Bupropion HCl 150 mg 08/09/20 09:00 08/09/20 08:00 Bupropion Hcl Xl (24 Hr) 150 Mg Tabcr PO 150 mg QAM BONILLA Administration Escitalopram Oxalate 10 mg 08/09/20 09:00 08/09/20 08:01 Escitalopram Oxalate 10 Mg Tablet PO 10 mg DAILY BONILLA Administration Levofloxacin/Dextrose 750 mg in 150 mls @ 100 mls/hr 08/08/20 18:00 08/08/20 19:41 Levaquin 750 Mg/D5w 150 Ml IVPB Infused QPM BONILLA Infusion Ketorolac Tromethamine 15 mg 08/09/20 12:48 Ketorolac 15 Mg/Ml Vial (*Bkc) IV PUSH Q6H PRN Pain 4-6 breakthrough Morphine Sulfate 2 mg 08/08/20 19:11 08/09/20 11:09 Morphine Sulfate (*Crx) 2 Mg/Ml Inj IV PUSH 2 mg Q4H PRN Administration Pain Rated 7-10 Saccharomyces Boulardii 250 mg 08/08/20 17:00 08/09/20 08:00 Saccharomyces Boulardii 250 Mg Capsule PO 250 mg BID BONILLA Administration Zolpidem Tartrate 5 mg 08/08/20 15:59 Zolpidem Tartrate (*Crx) 5 Mg Tablet PO HS PRN insomnia Labs Labs: Laboratory Results - last 24 hr 08/08/20 08/08/20 08/09/20 17:12 17:12 05:33 WBC 10.1 H RBC 4.34 Hgb 14.1 Hct 40.9 MCV 94.2 MCH 32.5 MCHC 34.5 RDW 12.0 Plt Count 280 MPV 10.0 ESR 10 Sodium Potassium Chloride Carbon Dioxide Anion Gap BUN Creatinine Estim Creat Clear Calc Estimated GFR Glucose Calcium Total Bilirubin AST ALT Alkaline Phosphatase C-Reactive Protein 0.7 Total Protein Albumin 08/09/20 08/09/20 08/09/20 05:33 05:33 05:33 WBC RBC Hgb Hct MCV MCH MCHC RDW Plt Count MPV ESR 9 Sodium 135 L Potassium 4.1 Chloride 103 Carbon Dioxide 32 H Anion Gap 0 L BUN 17 Creatinine 0.80 Estim Creat Clear Calc 97 Estimated GFR > 60 Glucose 102 Calcium 8.5 Total Bilirubin 0.3 AST 24 ALT 23 Alkaline Phosphatase 54 C-Reactive Protein 0.5 Total Protein 6.0 L Albumin 3
[2020-08-09] MEDS: KETOROLAC 15 MG/ML VIAL (*BKC) IV PUSH ×2 (13:01→22:28)
--- NOTE | 2020-08-09 14:33 | CONS_ITS ---
DATE OF CONSULTATION: 08/09/2020 REASON FOR CONSULTATION: Cellulitis. HISTORY OF PRESENT ILLNESS: A 40-year-old female who has had previous cartilage repairs of her left knee, also has a known schwannoma of the left foot. No previous operations nor trauma to the right foot. She reports shaving of a callus in the office approximately 4 weeks before admission. Beginning 8 days before admission, she had new onset of redness, pain, and swelling over the dorsum of the right foot lateral distal aspect. This is in the area of the callus, which had been over the plantar 5th metatarsal head. She went to an outside emergency room where she was given an antibiotic of unknown identity. She then was seen in the office on August 02. Office I and D was performed and she was promptly admitted to the hospital here where she received vancomycin. She was discharged 4 days prior to present admission on levofloxacin which she took without fail, also clindamycin. She then was seen once again in the office on the day of admission, August 08, where she was noted to have a cyst lesion that could not be excised in the office and was taken to the operating room yesterday and she underwent incision and drainage at the right foot to subcutaneous layer of a cystic lesion 3 cm in length. Antibiotic beads were placed. Wound was packed and left open. Consultation requested at that point. She is on levofloxacin day #2. She also was given a single dose of clindamycin and vancomycin. No immunosuppressants. No other recent antibiotics. No fever, rigors, or night sweats. ALLERGIES: AMOXICILLIN, CLAVULANIC ACID CAUSED VOMITING. HABITS: A quarter of a pack of cigarettes per day. No alcohol. PRESENT MEDICATIONS: As above. PAST MEDICAL HISTORY: She carries a diagnosis of ADD. No chronic medical illnesses. FAMILY HISTORY: Not pertinent to her present illness. SOCIAL HISTORY: She works at the [employer] in [place] on her feet 12 hours a day. Lives locally. Has a daughter and . REVIEW OF SYSTEMS: Constitutional, musculoskeletal, skin, GI, ENT otherwise negative. PHYSICAL EXAMINATION: GENERAL: This is a middle-aged female who appears her actual age. No acute distress. VITAL SIGNS: Afebrile since arrival, 59, 12, 107/49. SKIN: No generalized rashes. EENT: Conjunctivae are normal. Pupils equal, round, and reactive to light. The oropharynx, oral mucosa normal. LUNGS: Clear to auscultation and percussion. CARDIAC: Regular rate and rhythm. No murmur, gallop, or rub. Pulses are 2+. ABDOMEN: Nontender. No mass. No organomegaly. Soft. EXTREMITIES: She has no erythema, warmth, or tenderness over the dorsum of the foot. She has a packed wound, plantar aspect of the foot in the area of the 5th metatarsal head. There is no odor. No purulence. LABORATORY DATA: From the operating room yesterday, Gram stain, gram-negative rods. Culture in process. Culture from the office 08/02/2020, reportedly showed E coli, full results requested. White count 10.1 today and at the time of discharge last week 6.8, hemoglobin 14.1, platelets are 280. No differential done. There is mild hyponatremia, otherwise chemistry panel is normal. No blood cultures done. RADIOLOGY: From 08/03/2020, MRI of the foot showed surgical changes seen. No osteomyelitis or drainable abscess. ASSESSMENT: 1. Cellulitis of the foot, resolved. 2. Plantar foot superficial abscess versus infected cyst, postop day 1 excision. 3. Tobacco. RECOMMENDATIONS: 1. Continue levofloxacin. 2. Follow up on results of above wound cultures. 3. Do not anticipate long-term antibiotics. Thank you very much for asking me to see her.
[2020-08-09 17:04] VITALS: BP 104/64; PULSE 67; RESP 18; TEMP 36.4; O2SAT 99
--- NOTE | 2020-08-09 17:06 | WPDPN ---
Progress Note: A&P Additional Plan Abscess/infected cyst right foot- WBC still elevated. Recommend continued antibiotics per ID. Will await final OR cultures. 08/02/20 I &D cultered E. Coli. OR 08/08/20 STAT gram stain showing gram negative rods. I changed dressing and packed with 1/2 iodoform gauze, adaptic, kerlix and coban. No signs of infection. This should be changed daily at home. I will see the patient tomorrow morning before discharge. She will be non weight bearing with knee scooter/crutches until wound heals. Appreciate hospitalist and ID help with this case, Dr. Gallego Exam Extrem: Ankle/foot/toe images: 1. Incision site is open, no purulence noted. Antibiotic beads visualized. No periwound edema and erythema. No calor, no malodor from wound. Objective Data Vital Signs Vital Signs: Vital Signs - 24 hr 08/08/20 18:16 08/08/20 19:45 08/09/20 05:36 Temperature 36.2 C L 37.0 C 36.6 C Pulse Rate 89 91 69 Respiratory Rate 18 14 12 Blood Pressure 111/60 125/64 107/49 L Pulse Oximetry 97 96 98 08/09/20 08:00 08/09/20 17:04 Temperature 36.4 C L Pulse Rate 69 67 Respiratory Rate 12 18 Blood Pressure 104/64 Pulse Oximetry 98 99 Intake/Output Intake/Output: Intake & Output 08/06/20 08/07/20 08/08/20 08/09/20 23:59 23:59 23:59 23:59 Intake Total 200 980 Output Total 600 Balance 200 380 Meds/Results Medications: Active Medications Generic Name Dose Route Start Last Admin Trade Name Freq PRN Reason Stop Dose Admin Acetaminophen 500 mg 08/08/20 15:59 Acetaminophen 500 Mg Tablet PO Q6H PRN Mild Pain (1-3) or Fever Hydrocodone Bitart/Acetaminophen 1 tab 08/09/20 09:33 08/09/20 09:41 Hydrocodone/Acetaminophen (*Crx) 7.5-325 Mg Tablet PO 1 tab Q4H PRN Administration Pain Rated 4-6 Alprazolam 0.25 mg 08/08/20 15:59 08/09/20 11:45 Alprazolam (*Crx) 0.25 Mg Tablet PO 0.25 mg TID PRN Administration anxiety Bupropion HCl 150 mg 08/09/20 09:00 08/09/20 08:00 Bupropion Hcl Xl (24 Hr) 150 Mg Tabcr PO 150 mg QAM BONILLA Administration Enoxaparin Sodium 40 mg 08/09/20 21:00 Enoxaparin 40 Mg/0.4 Ml Syringe SUB-Q [facility] Escitalopram Oxalate 10 mg 08/09/20 09:00 08/09/20 08:01 Escitalopram Oxalate 10 Mg Tablet PO 10 mg DAILY BONILLA Administration Levofloxacin/Dextrose 750 mg in 150 mls @ 100 mls/hr 08/08/20 18:00 08/09/20 17:02 Levaquin 750 Mg/D5w 150 Ml IVPB 100 mls/hr QPM BONILLA Administration Ketorolac Tromethamine 15 mg 08/09/20 12:48 08/09/20 13:01 Ketorolac 15 Mg/Ml Vial (*Bkc) IV PUSH 15 mg Q6H PRN Administration Pain 4-6 breakthrough Morphine Sulfate 2 mg 08/08/20 19:11 08/09/20 11:09 Morphine Sulfate (*Crx) 2 Mg/Ml Inj IV PUSH 2 mg Q4H PRN Administration Pain Rated 7-10 Saccharomyces Boulardii 250 mg 08/08/20 17:00 08/09/20 17:02 Saccharomyces Boulardii 250 Mg Capsule PO 250 mg BID BONILLA Administration Zolpidem Tartrate 5 mg 08/08/20 15:59 Zolpidem Tartrate (*Crx) 5 Mg Tablet PO HS PRN insomnia Labs Labs: Laboratory Results - last 24 hr 08/08/20 08/08/20 08/09/20 17:12 17:12 05:33 WBC 10.1 H RBC 4.34 Hgb 14.1 Hct 40.9 MCV 94.2 MCH 32.5 MCHC 34.5 RDW 12.0 Plt Count 280 MPV 10.0 ESR 10 Sodium Potassium Chloride Carbon Dioxide Anion Gap BUN Creatinine Estim Creat Clear Calc Estimated GFR Glucose Calcium Total Bilirubin AST ALT Alkaline Phosphatase C-Reactive Protein 0.7 Total Protein Albumin 08/09/20 08/09/20 08/09/20 05:33 05:33 05:33 WBC RBC Hgb Hct MCV MCH MCHC RDW Plt Count MPV ESR 9 Sodium 135 L Potassium 4.1 Chloride 103 Carbon Dioxide 32 H Anion Gap 0 L BUN 17 Creatinine 0.80 Estim Creat Clear Calc 97 Estimated GFR > 60 G
[2020-08-09 20:30] VITALS: BP 116/49; PULSE 56; RESP 16; TEMP 36.6; O2SAT 100
[2020-08-09] MEDS: ENOXAPARIN 40 MG/0.4 ML SYRINGE SUB-Q (20:31)
[2020-08-10 05:29] VITALS: BP 106/60; PULSE 63; RESP 16; TEMP 36.4; O2SAT 100
[2020-08-10 05:37] LABS: Basophils Absolute Auto 0.1 K/mm3 (0.0-0.1); Basophils Percent Auto 0.7 % (0.2-1.2); Eosinophils Absolute Auto 0.2 K/mm3 (0-0.3); Eosinophils Percent Auto 2.1 % (0-4.4); Hematocrit 40.7 % (37.0-47.0); Hemoglobin 13.6 g/dL (12.0-15.0); Immature Granulocyte Absolute 0.04 K/mm3 (0.00-0.031); Immature Granulocyte Percent A 0.6 % (0-0.5); Lymphocytes Absolute Auto 3.51 K/mm3 (0.9-3.2); Lymphocytes Percent Auto 48.5 % (18.3-44.2); Mean Corpuscular HGB Conc 33.4 g/dl (32-36); Mean Corpuscular Hemoglobin 32.1 pg (26-34); Mean Platelet Volume 9.9 fl (7.4-10.4); Monocytes Absolute Auto 0.5 K/mm3 (0.1-0.6); Monocytes Percent Auto 6.9 % (2.6-8.5); Neutrophils Percent Auto 41.2 % (45.5-73.1); Platelet Count Result 227 k/mm3 (150-375); Red Blood Count 4.24 M/mm3 (4.2-5.4); Red Cell Distribution Width 12.4 % (11.5-14.5); White Blood Count 7.2 K/mm3 (4.5-10.0)
[2020-08-10 05:48] LABS: Anion Gap 0 mmol/L (8-16); Blood Urea Nitrogen 23 mg/dL (7-17); Calcium 7.9 mg/dL (8.4-10.2); Carbon Dioxide 28 mmol/L (22-30); Chloride 108 mmol/L (98-107); Estimated CRCL calculation 110 ml/min; Estimated Glomerular Filt Rate > 60; Glucose 92 mg/dL (65-105); Potassium 4.3 mmol/L (3.4-5.0); Sodium 136 mmol/L (137-145)
[2020-08-10] MEDS: buPROPion HCL XL (24 HR) 150 MG TABCR PO (09:19)
[2020-08-10] MEDS: ESCITALOPRAM OXALATE 10 MG TABLET PO (09:19)
[2020-08-10] MEDS: SACCHAROMYCES BOULARDII 250 MG CAPSULE PO (09:19)
--- NOTE | 2020-08-10 10:09 | WPDPN ---
Progress Note: A&P Additional Plan -2 days s/p I&D right foot -WBC trending down, no active SOI, stable for discharge on antibiotics per ID, appreciate recommendations. -Local wound care at home by patient, this was demonstrated prior to discharge. -Non weight bearing until the plantar wound heals -Work restrictions orders placed F/u August 13, 2020 Exam Extrem: Ankle/foot/toe images: 1. Wound to the plantar aspect of the 5th metatarsal is granulating nicely. No periwound edema, no erythema, no signs of active bacterial infection. Objective Data Vital Signs Vital Signs: Vital Signs - 24 hr 08/09/20 17:04 08/09/20 20:30 08/10/20 05:29 Temperature 36.4 C L 36.6 C 36.4 C Pulse Rate 67 56 L 63 Respiratory Rate 18 16 16 Blood Pressure 104/64 116/49 L 106/60 Pulse Oximetry 99 100 100 Intake/Output Intake/Output: Intake & Output 08/07/20 08/08/20 08/09/20 08/10/20 23:59 23:59 23:59 23:59 Intake Total 200 1920 120 Output Total 600 200 Balance 200 1320 -80 Meds/Results Medications: Active Medications Generic Name Dose Route Start Last Admin Trade Name Freq PRN Reason Stop Dose Admin Acetaminophen 500 mg 08/08/20 15:59 Acetaminophen 500 Mg Tablet PO Q6H PRN Mild Pain (1-3) or Fever Hydrocodone Bitart/Acetaminophen 1 tab 08/09/20 09:33 08/09/20 21:22 Hydrocodone/Acetaminophen (*Crx) 7.5-325 Mg Tablet PO 1 tab Q4H PRN Administration Pain Rated 4-6 Alprazolam 0.25 mg 08/08/20 15:59 08/09/20 11:45 Alprazolam (*Crx) 0.25 Mg Tablet PO 0.25 mg TID PRN Administration anxiety Bupropion HCl 150 mg 08/09/20 09:00 08/10/20 09:19 Bupropion Hcl Xl (24 Hr) 150 Mg Tabcr PO 150 mg QAM BONILLA Administration Enoxaparin Sodium 40 mg 08/09/20 21:00 08/09/20 20:31 Enoxaparin 40 Mg/0.4 Ml Syringe SUB-Q 40 mg HS BONILLA Administration Escitalopram Oxalate 10 mg 08/09/20 09:00 08/10/20 09:19 Escitalopram Oxalate 10 Mg Tablet PO 10 mg DAILY BONILLA Administration Levofloxacin/Dextrose 750 mg in 150 mls @ 100 mls/hr 08/08/20 18:00 08/09/20 18:32 Levaquin 750 Mg/D5w 150 Ml IVPB Infused QPM BONILLA Infusion Ketorolac Tromethamine 15 mg 08/09/20 12:48 08/09/20 22:28 Ketorolac 15 Mg/Ml Vial (*Bkc) IV PUSH 15 mg Q6H PRN Administration Pain 4-6 breakthrough Morphine Sulfate 2 mg 08/08/20 19:11 08/09/20 11:09 Morphine Sulfate (*Crx) 2 Mg/Ml Inj IV PUSH 2 mg Q4H PRN Administration Pain Rated 7-10 Saccharomyces Boulardii 250 mg 08/08/20 17:00 08/10/20 09:19 Saccharomyces Boulardii 250 Mg Capsule PO 250 mg BID BONILLA Administration Zolpidem Tartrate 5 mg 08/08/20 15:59 Zolpidem Tartrate (*Crx) 5 Mg Tablet PO HS PRN insomnia Labs Labs: Laboratory Results - last 24 hr 08/10/20 08/10/20 05:18 05:18 WBC 7.2 RBC 4.24 Hgb 13.6 Hct 40.7 MCV 96.0 MCH 32.1 MCHC 33.4 RDW 12.4 Plt Count 227 MPV 9.9 Immature Gran % (Auto) 0.6 H Neut % (Auto) 41.2 L Lymph % (Auto) 48.5 H Ocean % (Auto) 6.9 Eos % (Auto) 2.1 Baso % (Auto) 0.7 Lymph # (Auto) 3.51 H [place] # (Auto) 0.5 Eos # (Auto) 0.2 Baso # (Auto) 0.1 Abs Immat Gran (auto) 0.04 H Absolute Neuts (auto) 3.0 Absolute Nucleated RBC 0.0 Nucleated RBC % 0.0 Sodium 136 L Potassium 4.3 Chloride 108 H Carbon Dioxide 28 Anion Gap 0 L BUN 23 H Creatinine 0.70 Estim Creat Clear Calc 110 Estimated GFR > 60 Glucose 92 Calcium 7.9 L Quality VTE Prophylaxis VTE prophylaxis: mechanical ordered and pharmacologic ordered (Lovenox SQ) Subjective Date/time seen: 08/10/20 10:09
--- NOTE | 2020-08-10 10:12 | PM.DS ---
DS: Admitting Diagnosis Admitting Diagnosis Admitting Diagnosis: Abscess/infected cyst of the right foot s/p I&D DS: Discharge Diagnosis Discharge Diagnosis (1) Abscess of right foot: Code(s): L02.611 - Cutaneous abscess of right foot Status: Acute Assessment and Plan: Discharge Summary (Date of service 08/10/20): Mrs. Edwards is a 40 y.o. female with PMH significant for anxiety, attention deficit disorder, schwannoma, and continued tobacco use who was directly admitted to the hospital for IV antibiotics per Dr. Gallego's recommendations following incision and drainage of a right foot infection with resection of a capsulated cyst-like lesion in the operating room on 08/08/20. She developed a callus at the plantar surface of the 5th metatarsal head on the right foot and underwent shaving 4 weeks prior to admission. She subsequently developed cellulitis and was treated with PO keflex outpatient. She saw Dr. Gallego and underwent I&D outpatient 08/04/20 and was immediately admitted for IV antibiotics (vancomycin and ancef) from 08/02-08/04. She was discharged on PO levaquin and clindamycin for 10 days. She subsequently returned to Dr. Gallego's office 08/08/20 after she noticed recurrent subcutaneous nodule that was painful and erythematous and underwent I&D 08/08/[address] Gallego in the OR. Deep wound culture swab was sent for culture and sensitivities and the encapsulated cyst-like lesion was resected and sent for gross and histo. Antibiotics were managed by Dr. Gallego and Dr. Schrader. She was treated with IV levaquin while inpatient and discharged with instructions to continue the clindamycin and levaquin which she was already prescribed. Her pain improved significantly. WBC improved and Dr. Gallego felt she was stable for discharge with non-weight bearing on the right until the plantar wound heals. She was discharged in hemodynamically stable condition on the morning of 08/10/20. She understood worrisome signs and symptoms which would warrant return to the emergency department. She will see Dr. Gallego in the office 08/13/20 in follow-up. Smoking cessation is imperative for wound healing and this was discussed with the patient. (2) Cellulitis of right foot: Code(s): L03.115 - Cellulitis of right lower limb Status: Acute Assessment and Plan: Plan as above. (3) Anxiety: Code(s): F41.9 - Anxiety disorder, unspecified Status: Acute Assessment and Plan: Chronic and stable. Alprazolam was continued as needed. (4) Tobacco use: Code(s): Z72.0 - Tobacco use Status: Acute Assessment and Plan: She is currently smoking 5 cigarettes per day and has smoked for 20 years. She needs to quit smoking immediately. This is especially imperative for wound healing and overall cardiovascular health. Smoking cessation was encouraged during her hospital stay. She needs to continue outpatient follow-up with her PCP. DS: Summary Hospital Course Hospital Course: As above. Time Spent with Patient Time attestation: Total time spent providing and/or coordinating discharge services: 45 minutes Exam Narrative: Exam Narrative: Vitals at presentation: Temp Pulse Resp BP Pulse Ox 98.5 F 112 H 20 123/75 100 08/08/20 12:19 08/08/20 12:19 08/08/20 12:19 08/08/20 12:19 08/08/20 12:19 Vitals at discharge: Temp Pulse Resp BP Pulse Ox 97.6 F 63 16 106/60 100 08/10/20 05:29 08/10/20 05:29 08/10/20 05:29 08/10/20 05:29 08/10/20 05:29 General: Pleasant, well-developed, and well-nourished 40 y.o. female lying on her side in bed in no acute distress. HEENMT: Normocephalic and atraumatic. Oral mucosa moist.
== END 2020-08-10 11:10 | disposition home or self-care (01) | DRG 603 ==
LOC: ANH3MED 16:03
PROVIDERS: Physician Assistant; Podiatrist Foot & Ankle Surgery; Admitting Provider Family Medicine; PCP Family Medicine; Visit Provider Internal Medicine
PROC: 0J9Q0ZX Drainage of Right Foot Subcutaneous Tissue and Fascia, Open Approach, Diagnostic (ICD-10-PCS; principal; 2020-08-08 14:00)
DX: L02.611 Cutaneous abscess of right foot (principal); L03.115 Cellulitis of right lower limb; F41.9 Anxiety disorder, unspecified; F17.210 Nicotine dependence, cigarettes, uncomplicated; F98.8 Other specified behavioral and emotional disorders with onset usually occurring in childhood and adolescence; D36.13 Benign neoplasm of peripheral nerves and autonomic nervous system of lower limb, including hip
CPT/HCPCS: 36415; 80048; 80053; 85025; 85027; 85652; 86140; 87070; 87075; 87076; 87185; 87205; 88304; A9270; G0378; J1100; J1650; J1885; J1956; J2250; J2270; J2405; J2704; J3010; J3370; J7120

== ENCOUNTER → 2021-03-11 16:25 | Outpatient (CLI) | payer BC, SELFPAY ==
--- NOTE | ~2021-03-11 | XR_ITS ---
EXAMINATION: XR elbow RT min 3V DATE: 03/11/2021 16:36 INDICATION: Right elbow pain. TECHNIQUE: 4 views of right elbow were obtained. COMPARISON: None. FINDINGS: Bone alignment is normal. No fracture. Joint spaces are well maintained. There is no elbow joint effusion. IMPRESSION: 1. Normal right elbow. Reviewed, dictated and finalized at location A. IMPRESSION: 1. Normal right elbow.
== END ==
PROVIDERS: PCP Family Medicine; Visit Provider Family Medicine
DX: M25.521 Pain in right elbow (principal)
CPT/HCPCS: 73080

== ENCOUNTER → 2021-08-22 09:56 | Outpatient (CLI) | payer BC, SELFPAY ==
[2021-08-22 12:13] LABS: SARS-CoV-2 RNA PCR Negative
== END ==
PROVIDERS: PCP Family Medicine; Visit Provider Family Medicine
DX: J20.9 Acute bronchitis, unspecified (principal); Z20.822 Contact with and (suspected) exposure to COVID-19
CPT/HCPCS: C9803; U0003; U0005

== ENCOUNTER 2021-08-22 10:43 | Outpatient (CLI) | payer BC, SELFPAY ==
--- NOTE | ~2021-08-22 | XR_ITS ---
XR chest 2V DATE: 08/22/2021 10:59 INDICATION: Cough. Acute bronchitis. TECHNIQUE: PA and lateral views COMPARISON: None FINDINGS: Normal heart size. No hilar or mediastinal enlargement. The lungs are normally inflated and clear of infiltrate or consolidation. No pleural effusion or pulmonary vascular congestion or pneumo thorax. Included skeletal structures are unremarkable. IMPRESSION: Negative chest Reviewed, dictated and finalized at location A. [employer] IMPRESSION: Negative chest
== END 2021-08-22 10:44 | disposition home or self-care (01) ==
LOC: ANHIMG 10:46
PROVIDERS: PCP Family Medicine; Visit Provider Family Medicine
DX: J20.9 Acute bronchitis, unspecified (principal)
CPT/HCPCS: 71046

== ENCOUNTER 2021-11-28 14:50 | Outpatient (RCR) | payer BC, SELFPAY ==
[2021-11-28] MEDS: FAMOTIDINE 20 MG TABLET PO (15:25)
[2021-11-28] MEDS: ACETAMINOPHEN 325 MG TABLET 650 MG PO (15:25)
[2021-11-28] MEDS: diphenhydrAMINE HCl CAP 25 MG CAPSULE PO (15:25)
[2021-11-28 15:43] VITALS: BP 123/90; PULSE 88; RESP 20; TEMP 36.2; O2SAT 98
[2021-11-28] MEDS: BEBTELOVIMAB 175 MG/2 ML VIAL IV PUSH (15:45)
[2021-11-28 16:22] VITALS: BP 120/83; PULSE 78; RESP 20; O2SAT 98
== END 2021-11-28 16:00 ==
LOC: AMCINF 14:50
PROVIDERS: PCP Family Medicine; Visit Provider Internal Medicine Hematology & Oncology
DX: U07.1 COVID-19 (principal)
CPT/HCPCS: A9270; M0222; Q0222

== ENCOUNTER 2021-12-02 08:07 | Outpatient (CLI) | payer BC, SELFPAY ==
--- NOTE | 2021-12-05 23:34 | WPDHOMESLEEP ---
Sleep Study - Home Unattended Date of Study: 12/02/21 Ordering Provider: Kimani Coleman MD Interpreting Provider: Mayi Lares, DO Home Sleep Study Type: Apnea Link Air Height: 1.55 m Weight: 99.79 kg Body Mass Index: 41.5 Neck Circumference (inches): 17 [place]: 13 Reason for Sleep Study Unrefreshing sleep and daytime hypersomnia Sleep History The patient is a 41 y/o female with ADD, anxiety, depression and tobacco use disorder that had a sleep study ordered by her primary care for evaluation of sleep apnea. The patient occasionally awakens from sleep short of breath. She denies awakening at night with heartburn, belching or cough. She constantly snores loud enough that others complain. She occasionally has trouble sleeping when she has a cold. She frequently wakes up gasping for breath during the night. She rarely has breathing problems at night observed by herself or others. She occasionally sweats excessively at night. She denies having heart palpitations or irregular heartbeats during the night. She denies falling asleep during the day and while driving. She denies sleep paralysis, cataplexy and hypnagogic / hypnopompic hallucinations. She denies having trouble at school or work due to sleepiness. She rarely has nightmares. She rarely remembers her dreams. She constantly has thoughts racing through her mind. She rarely feels sad or depressed. She constantly has anxiety. She denies having muscular tension. She denies noticing parts of her body jerks. She rarely kicks during the night. She denies having crawling aching feelings in her legs as well as leg pain during the night. She denies grinding her teeth during sleep and awakening with warning job pain. She denies being bothered by pain during the day and being awakened by pain during the night. She denies waking up feeling stiff in the morning. She denies waking up with sore and achy muscles. She denies waking up with pain in the neck, spine or other joints. She goes to bed between 830 and 9:30 p.m. on weekdays and between 10:00 p.m. and midnight on the weekends. It takes her 30 minutes to fall asleep. She wakes up 5-6 times throughout the night. When she awakened she will eat. It can take her 5 minutes up to 2 hours to fall back asleep. She wakes up at 5:50 a.m. on weekdays and between 8 and 10:00 a.m. on the weekends. She typically gets his pain is a 10 hours of sleep per night. She will stay in bed for 30 minutes after waking up in the morning. She currently lives with her and daughter. She does not consume any caffeinated beverages within 2 hours of bedtime. She does not engage in physical exercise before bedtime. She will watch television before falling asleep. She will take naps in the afternoon or the evening on the weekends but they are not refreshing. She will drink 12 oz of caffeinated beverage per day. She smokes 5 cigarettes per day. She will drink 5 alcoholic beverages per week. She denies recreational drug use. [facility] Past Medical History Medical History Acute bronchitis COVID test 08/22/21 . Chest x-ray is normal 08/22/2021 Anxiety Attention deficit disorder Benign schwannoma Left foot. BMI 31.0-31.9,adult BMI 32.0-32.9,adult Chronic depression Cough Dermatofibroma multiple dermatofibroma Hypersomnia Right elbow pain (03/08/21) Tobacco use Surgical History Surgical History History of left knee surgery X3; OATS procedure and arthroscopy. Family History Family History Grandparent Diabetes mellitus Family history of malignant neoplasm Family history of malignant neoplasm of breast Father Hypertension Mother Patient's mother is in good health Sibling Patient's brother is in good health Social History Social History Social Histo
[2021-12-05 23:37] VITALS: BMI 41.5
== END 2021-12-03 14:46 | disposition home or self-care (01) ==
LOC: ANHCSM 08:07
PROVIDERS: PCP Family Medicine; Visit Provider Family Medicine
DX: G47.9 Sleep disorder, unspecified (principal)
CPT/HCPCS: 95806

== ENCOUNTER 2022-01-01 07:34 | Outpatient (CLI) | payer BC, SELFPAY ==
--- NOTE | 2022-01-24 21:16 | WPDSLEEPSTUD ---
Sleep Study Date of Study: 01/01/22 Ordering Provider: Kimani Coleman MD Interpreting Physician: Mayi Lares DO Sleep Study Type: Split Polysomnogram Height: 1.75 m Weight: 97.522 kg Body Mass Index: 31.7 Neck Circumference (inches): 15.5 [place]: 10 Reason for Sleep Study The patient had an HSAT on 12/02/2021 that showed an AHI of 3.1. Due to her significant symptoms, it was recommended that she have an in-lab study. Sleep History The patient is a 41 y/o female with ADD, anxiety, depression and tobacco use disorder that had a sleep study ordered by her primary care for evaluation of sleep apnea. The patient occasionally awakens from sleep short of breath. She denies awakening at night with heartburn, belching or cough. She constantly snores loud enough that others complain. She occasionally has trouble sleeping when she has a cold. She frequently wakes up gasping for breath during the night. She rarely has breathing problems at night observed by herself or others. She occasionally sweats excessively at night. ? She denies having heart palpitations or irregular heartbeats during the night.? She denies falling asleep during the day and while driving.? She denies sleep paralysis, cataplexy and hypnagogic / hypnopompic hallucinations.? She denies having trouble at school or work due to sleepiness.? She rarely has nightmares.? She rarely remembers her dreams.? She constantly has thoughts racing through her mind.? She rarely feels sad or depressed.? She constantly has anxiety.? She denies having muscular tension.? She denies noticing parts of her body jerks.? She rarely kicks during the night.? She denies having crawling aching feelings in her legs as well as leg pain during the night.? She denies grinding her teeth during sleep and awakening with warning job pain.? She denies being bothered by pain during the day and being awakened by pain during the night.? She denies waking up feeling stiff in the morning.? She denies waking up with sore and achy muscles.? She denies waking up with pain in the neck, spine or other joints.? She goes to bed between 830 and 9:30 p.m. on weekdays and between 10:00 p.m. and midnight on the weekends.? It takes her 30 minutes to fall asleep.? She wakes up 5-6 times throughout the night.? When she awakened she will eat.? It can take her 5 minutes up to 2 hours to fall back asleep.? She wakes up at 5:50 a.m. on weekdays and between 8 and 10:00 a.m. on the weekends.? She typically gets his pain is a 10 hours of sleep per night.? She will stay in bed for 30 minutes after waking up in the morning.? She currently lives with her and daughter.? She does not consume any caffeinated beverages within 2 hours of bedtime.? She does not engage in physical exercise before bedtime.? She will watch television before falling asleep.? She will take naps in the afternoon or the evening on the weekends but they are not refreshing.? She will drink 12 oz of caffeinated beverage per day.? She smokes 5 cigarettes per day.? She will drink 5 alcoholic beverages per week.? She denies recreational drug use. [facility] Past Medical History Medical History Abnormal Pap smear of cervix 07/16/2018 Ascus -hpv Acute bronchitis COVID test negative on 08/22/21 . Chest x-ray is normal 08/22/2021 Benign schwannoma Left foot. BMI 31.0-31.9,adult BMI 32.0-32.9,adult BMI 34.0-34.9,adult Chronic depression Cough Dermatofibroma multiple dermatofibroma Encounter for IUD insertion 03/06/15 Mirena insertion 01/20/20 Mirena removal/reinsertion Encounter for IUD removal 01/20/20 Mirena removal/reinsertion Hypersomnia Obesity (BMI 30.0-34.9) Right elbow pain (03/08/21) Schwannoma of nerve of lower extremity left foot Screening mammogram, encounter for Tobacco use Surgical History Surgical History History of colposcopy with cervical biopsy 03/09/01 LGSIL, mild dysplasia History of l
[2022-01-24 23:02] VITALS: BMI 31.7
== END 2022-01-02 06:39 | disposition home or self-care (01) ==
LOC: ANHCSM 08:10
PROVIDERS: PCP Family Medicine; Visit Provider Family Medicine
DX: G47.33 Obstructive sleep apnea (adult) (pediatric) (principal); G47.10 Hypersomnia, unspecified
CPT/HCPCS: 95811

== ENCOUNTER → 2022-10-20 16:22 | Outpatient (CLI) | payer OTHER, SELFPAY ==
--- NOTE | ~2022-10-20 | XR_ITS ---
EXAM: XR ankle RT min 3V, XR ankle LT min 3V DATE: 10/20/2022 16:54 (accession [id number]), 10/20/2022 16:55 (accession [id number]) HISTORY: M25.571 - Pain in right ankle and joints of right foot . COMPARISON: None available. FINDINGS: Normal mineralization. No fracture or dislocation. No lytic or blastic lesion. Joint space s are maintained. Prominent os trigonum bilaterally which occasionally is a source of posterior ankle pain in some patients. Bilateral Achilles enthesopathy. Left plantar enthesopathy. No erosion or per iosteal change. 4 mm radiopaque foreign body projecting over the plantar soft tissues in the left anastasia t at the level of the tarsometatarsal joints. IMPRESSION: No acute osseous finding in either ankle. Radiopaque foreign body in the plantar soft tis sues of the left midfoot. Reviewed, dictated and finalized at location K. IMPRESSION: No acute osseous finding in either ankle. Radiopaque foreign body i n the plantar soft tissues of the left midfoot.
--- NOTE | ~2022-10-20 | XR_ITS ---
EXAM: XR knee RT min 4V, XR knee LT min 4V DATE: 10/20/2022 16:54 HISTORY: M25.561 - Pain in right knee/pain posterior to kneecap . COMPARISON: None available. FINDINGS: Decreased mineralization. No fracture or dislocation. No lytic or blastic lesion. Mild med ial joint space narrowing bilaterally. Mild bilateral tricompartmental osteophytosis. No erosion or p eriosteal change. Soft tissues within normal limits. IMPRESSION: Mild bilateral tricompartmental knee osteoarthritis. Reviewed, dictated and finalized at location K. IMPRESSION: Mild bilateral tricompartmental knee osteoarthritis.
== END ==
PROVIDERS: PCP Family Medicine; Visit Provider Family Medicine
DX: M25.571 Pain in right ankle and joints of right foot (principal); M25.572 Pain in left ankle and joints of left foot; M17.0 Bilateral primary osteoarthritis of knee
CPT/HCPCS: 73564; 73610

== ENCOUNTER 2023-07-17 11:39 | Outpatient (CLI) | payer OTHER, BC, SELFPAY ==
[2023-07-17 12:45] LABS: Influenza A QL RT-PCR Negative (Negative); Influenza B QL RT-PCR Negative (Negative); RSV RNA, RT-PCR Negative (Negative); SARS-CoV-2 RNA PCR Negative (Negative)
== END 2023-07-17 11:40 | disposition home or self-care (01) ==
PROVIDERS: PCP Family Medicine; Visit Provider Nurse Practitioner Family
DX: R68.89 Other general symptoms and signs (principal); Z11.59 Encounter for screening for other viral diseases; Z20.822 Contact with and (suspected) exposure to COVID-19
CPT/HCPCS: 87637

== ENCOUNTER 2024-08-01 07:20 | Outpatient (CLI) | payer BC, SELFPAY ==
[2024-08-01 08:15] LABS: Basophils Absolute Auto 0.1 K/mm3 (0.0-0.1); Basophils Percent Auto 0.9 % (0.2-1.2); Eosinophils Absolute Auto 0.3 K/mm3 (0-0.3); Hematocrit 45.6 % (37.0-47.0); Hemoglobin 15.3 g/dL (12.0-15.0); Immature Granulocyte Absolute 0.05 K/mm3 (0.00-0.031); Immature Granulocyte Percent A 0.6 % (0-0.5); Lymphocytes Absolute Auto 3.37 K/mm3 (0.9-3.2); Lymphocytes Percent Auto 37.4 % (18.3-44.2); Mean Corpuscular HGB Conc 33.6 g/dl (32-36); Mean Corpuscular Hemoglobin 31.2 pg (26-34); Mean Corpuscular Volume 92.9 fl (80-100); Mean Platelet Volume 9.9 fl (7.4-10.4); Monocytes Absolute Auto 0.5 K/mm3 (0.1-0.6); Monocytes Percent Auto 5.9 % (2.6-8.5); Neutrophils Absolute Auto 4.7 K/mm3 (1.3-6.7); Neutrophils Percent Auto 52.2 % (45.5-73.1); Platelet Count Result 301 k/mm3 (150-375); Red Blood Count 4.91 M/mm3 (4.2-5.4); Red Cell Distribution Width 12.5 % (11.5-14.5)
[2024-08-01 08:25] LABS: Alanine Aminotransferase 36 U/L (6-35); Albumin Level 4.3 g/dL (3.5-5.1); Alkaline Phosphatase 71 U/L (38-126); Anion Gap 8 mmol/L (4-12); Aspartate Amino Transferase 24 U/L (14-36); Bilirubin,Total 0.7 mg/dL (0.2-1.3); Blood Urea Nitrogen 18 mg/dL (7-17); Carbon Dioxide 27 mmol/L (22-30); Chloride 104 mmol/L (98-107); Cholesterol 215 mg/dL (0-200); Estimated Glomerular Filt Rate > 60; Glucose 83 mg/dL (65-110); HDL Direct 47 mg/dL; Potassium 3.8 mmol/L (3.4-5.0); Sodium 139 mmol/L (137-145); Triglycerides 163 mg/dL (<150)
[2024-08-01 08:35] LABS: LDL Cholesterol Direct 137 mg/dL
[2024-08-01 08:48] LABS: Iron 141 ug/dL (37-170)
[2024-08-01 08:54] LABS: Thyroid Stimulating Hormone 0.052 uIU/mL (0.465-4.680); Total Triiodothyronine (T3) 1.13 NG/ML (0.97-1.69)
[2024-08-01 08:57] LABS: Percent Iron Saturation 53 % (20-50)
[2024-08-01 09:07] LABS: Free T4 Free Thyroxine 0.89 ng/dL (0.78-2.19)
[2024-08-01 09:37] LABS: Hemoglobin A1C 5.1 % (<5.7)
[2024-08-02 05:59] LABS: GGT 116 U/L (3-55)
[2024-08-03 02:49] LABS: FSH 2.4 mIU/mL; LH 3.7 mIU/mL; Prolactin 9.7 ng/mL
== END 2024-08-01 07:21 | disposition home or self-care (01) ==
LOC: ANHLAB 07:22
PROVIDERS: PCP Family Medicine; Visit Provider Family Medicine
DX: L68.0 Hirsutism (principal); R74.8 Abnormal levels of other serum enzymes; E78.2 Mixed hyperlipidemia; D51.9 Vitamin B12 deficiency anemia, unspecified; F41.9 Anxiety disorder, unspecified; M25.561 Pain in right knee; G89.29 Other chronic pain; E66.9 Obesity, unspecified; R79.89 Other specified abnormal findings of blood chemistry
CPT/HCPCS: 36415; 80053; 80061; 82533; 82607; 82728; 82977; 83001; 83002; 83036; 83540; 83550; 84146; 84402; 84403; 84439; 84443; 84480; 85025

== ENCOUNTER 2024-09-16 07:44 | Outpatient (CLI) | payer BC, SELFPAY ==
--- OUTSIDE RECORDS SUMMARY | 2024-09-16 07:51 | XMS_ITS | Continuity of Care Document ---
Author Organization [facility] Address [address] [place] [address] [place] [address] Phone Care Team Providers Care Home Service Advisor Name Role Phone [facility] Unavailable Unavail able Nova Newman Unavailable Unavailable Advance Directives Directive Yes / No Effective Date File Name No Information Encounters Encounter Description Practice Location Reason(s) For Visit Diagnoses Date Provider Providers Copied on Encounter [facility], [address], [place], [place], [id number], [place] tel:[phone] SEC [facility] No Information 5-200 5 [facility] [employer] [employer] [facility] [address] [facility], [address], [place], [place], [address] , [place]. tel:[phone] Consulting Provider: Nova Newman, [address] [place], [address]. tel:[phone] Family History Family Member Type Diagnosis Age At Onset No Information Payers Payer name Insurance type Covered democrat ID Authoriza tion(s) No Information Social History [...]
--- OUTSIDE RECORDS SUMMARY | 2024-09-16 07:51 | XMS_ITS | Clinical Summary ---
Author Organization [facility] Address [address] [place] [address] Care Team Providers Care Hand Candy Molder Name Role Phone Kimani Coleman MD Primary Care Provider [phone] Allergies Active Allergy Reactions Criticality Noted Date Comments Amoxicillin-Pot Clavulanate Vomiting Medium 01/07/20 11 Medications escitalopram (LEXAPRO) 10 mg tabletIndicatio ns:Anxiety with Depression Take 1 tablet (10 mg total) by mouth every morning Active ALPRAZolam (XANAX) 0.25 mg tabletIndicatio ns:anxiety Take 1 tablet (0.25 mg total) by mouth 3 (three) times a day as needed for anxiety 01/04/2023 Active buPROPion XL (WELLBUTRIN XL) 150 mg 24 hr tabletIndicatio ns:Anxiety with Depression Take 1 tablet (150 mg total) by mouth every morning 02/05/2023 Active ibuprofen 200 mg tab/capIndicati ons:Pain Take 2 tablet/capsu le (400 mg total) by mouth every 6 (six) hours as needed for pain 2 tablets Active tirzepatide (Mounjaro) 2.5 mg/0.5 mL pen injectorIndicat ions:wt. loss Inject 0.5 mL (2.5 mg total) under the skin every 7 days Takes on Mondays Active meloxicam (MOBIC) 15 mg tablet Take 1 tablet (15 mg total) by mouth daily for 10 days 10 tablet 01/06/2024 Active acetaminophen-c odeine (TYLENOL with CODEINE #4) 300-60 mg per tablet 1-2 tablets every 6 hours as needed for pain. 12 tablet 01/06/2024 Active Active Problems Problem Noted Date Diagnosed Date Intraligamentous cyst of left knee 01/06/2024 Chondromalacia of medial femoral condyle, left 0 01/06/2024 Chondromalacia of left patella 12/14/2023 Acute pain of left knee 11/26/2023 Effusion of left knee 11/26/2023 Chondromalacia of left lateral tibial plateau Injury of left knee 11/26/2023 Loose body of right knee 02/16/2023 Knee stiffness, right 01/29/2023 S/P arthroscopy of right knee 12/18/2022 Cyst of right knee joint 11/11/2022 Stiffness of right knee 11/11/2022 Effusion of right knee 10/30/2022 Injury of right knee 10/30/2022 Acute pain of right knee 10/30/2022 Dermatofibroma - Left 10/23/2022 Immunizations Immunization Administration Dates Next Due Pfizer SARS-CoV-2 Monovalent Vaccination (12+ Yrs) PURPLE 08/15/2020,07/25/2020 Surgical History Surgery Date Site/Laterality Comments PERCUTANEOUS NEEDLE BIOPSY MUSCLE 03/07/2016 N/A Schwannoma left foot PERCUTANEOUS NEEDLE BIOPSY MUSCLE 03/07/2016 N/A Schwannoma left foot INCISION AND DRAINAGE FOOT 07/13/2019 - 07/12/2020 Right KNEE ARTHROSCOPY 12/03/2022 Right ARTHROSCOPIC DEBRIDEMENT OF GANGLION CYST, CHONROPLASTY PATELLA KNEE ARTHROSCOPY 02/10/2023 - 03/12/2023 Right removal of loose body KNEE ARTHROSCOPY Left x3; last one in 2014 Medical History Medical History Date Comments Adhd Anxiety Sleep apnea Wears dental dev ice at night Obesity Smoker Family History Medical History Relation Name Comments Anesthesia problems Neg Hx Social History Tobacco Use Types Packs/Day Years Used Date Smoking Tobacco: Every Day Cigarettes 0.2 26.2 Started: 1998 Passive Smoke Exposure: Never Smokeless Tobacco: Never Tobacco Cessation:Ready to Q uit: Not Asked; Counseling Given: Not Answered AUDIT-C Answer Date Recorded Q1: How often do you have a drink containing alc ohol? 2-3 times a week 01/06/2024 Q2: How many drinks containi ng alcohol do you have on a typical day when you are drinking? 3 or 4 01/06/2024 Q3: How often do you have si x or more drinks on one occasion? Less than monthly 01/06/2024 Personal Safety Answer Date Recorded Have you ever been in or are you currently in a harmful physical or emotional relationship or is someone making you feel afraid or unsafe? 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 Gender Identity Not on file Sexual Orientation Not on file Obstetrics History Last Filed Vital Signs Vital Sign Reading Time Taken Comments Blood Pressure 122/74 01/06/2024 2:10 PM CDT Pulse 81 01/06/2024 2:10 PM CDT Temperature 36.1 C (97 F) 01/06/2024 1:16 PM CDT Respiratory Rate 15 01/06/2024 2:10 PM CDT Oxygen Saturation 97% 01/06/2024 2:10 PM CDT Inhaled Oxygen Concentration - - Weight 107.6 kg (237 lb 4.8 oz) 024 10:51 AM CDT Height 175.3 cm (5' 9 ) 01/06/2024 10:5 1 AM CDT Body Mass Index 35.04 01/06/2024 10:51 AM CDT Plan of Treatment Health Maintenance Due Date Last Done Comments Breast Cancer Screening-Mammogram 1980 Cervical Cancer Screening 1980 Depression Screening 1980 Hepatitis C Screening 1980 DTaP/Tdap/Td Vaccine (1 - Tdap) 01/31/1991 Varicella Vaccines (1 of 2 - 13+ 2-dose series) 01/31/1993 Hepatitis B Screening 01/31/1998 Regular Well Visit/Exam 18-64 01/31/1998 Pneumococcal vaccine <65 (1 of 2 - PCV) 01/31/1999 Covid-19 Vaccine (4 - 2023-2 5 season) 2024 05/10/2021, 08/15/2020, 07/25/2020 Influenza Vaccine (#1) 2024 HPV Vaccines Aged Out No longer eligi ble based on patient's age to complete this topic [place] Advance Directives For more information, please contact: [phone] * Full Code (Latest Code Status on File) Date Activated Date Inactivated Comments 02/18/2023 3:50 PM 02/18/2023 8:57 PM * Full Code Date Activated Date Inactivated Comments 12/03/2022 9:31 AM 12/03/2022 2:46 PM Care Teams Hand Candy Molder Relationship Specialty Start Date End Date Kimani Coleman MD [address] [address] PCP - General 07/31/17
--- OUTSIDE RECORDS SUMMARY | 2024-09-16 07:51 | XMS_ITS | Clinical Summary ---
Author Organization [facility] Address [address] [place] [address] Care Team Providers Care Executive Coordinator Name Role Phone Kimani Coleman MD Primary Care Provider [phone] Allergies Active Allergy Reactions Criticality Noted Date Comments Amoxicillin-Pot Clavulanate Vomiting 09/19/19 20 Medications No known medications Social History Tobacco Use Types Packs/Day Years Used Date Smoking Tobacco: Every Day Smokeless Tobacco: Never Alcohol Use Standard Drinks/Week Comments Yes 0 (1 standard drink = 0.6 oz pur e alcohol) Comments No Sex and Gender Information Value Date Recorded Sex Assigned at Not on file Legal Sex Female 1:43 PM CDT Gender Identity Not on file Sexual Orientation Not on file Last Filed Vital Signs Vital Sign Reading Time Taken Comments Blood Pressure 149/83 07/31/2020 2:15 PM MOLDER [employer]OM[employer]PETS Pulse 110 07/31/2020 2:15 PM [employer] Temperature 36.7 C (98 F) 07/31/2020 2:15 PM [employer] Respiratory Rate 18 07/31/2020 2:15 PM [employer] Oxygen Saturation 100% 07/31/2020 2:15 PM [employer] Inhaled Oxygen Concentration - - Weight 86.2 kg (190 lb) 07/31/2020 2:15 PM [employer] Height 175.3 cm (5' 9 ) 07/31/2020 2:15 PM [employer] Body Mass Index 28.06 07/31/2020 2:15 PM [employer] Plan of Treatment Health Maintenance Due Date Last Done Comments Cervical Cancer Screening Pa p Smear (Age 30 to 64) Every 3 Years 1980 Annual Physical 01/31/1983 Pneumococcal Vaccine: Pediat rics (0 to 5 Years) and At-Risk Patients (6 to 64 Years) (1 of 2 - PCV) 01/31/1986 Hepatitis C 01/31/1998 DTaP, Tdap and Td Vaccines ( 1 - Tdap) 01/31/1999 Hepatitis B Vaccines (1 of 3 - 19+ 3-dose series) 01/31/1999 Cervical Cancer Screening Pa p with HPV Testing (Age 30 to 64) Every 5 Years 01/31/2010 Cervical Cancer Screening with HPV 01/31/2010 Mammogram Screening 2020 COVID-19 Vaccine (1 - 2023-2 5 season) 2024 Influenza Adult (#1) 2024 HPV Vaccines Aged Out No longer eligi ble based on patient's age to complete this topic Meningococcal B Vaccine Aged Out No l onger eligible based on patient's age to complete this topic Meningococcal Vaccine Aged Out No connie aditya eligible based on patient's age to complete this topic RSV Immunizations Under 20 Months Aged Out No longer eligible based on patient's age to complete this topic Insurance [facility] Care Teams Executive Coordinator Relationship Specialty Start Date End Date Kimani Coleman MD [address] [place] [address] [address] [place] [address] PCP - General FAMILY PRACTICE 09/19/19
--- OUTSIDE RECORDS SUMMARY | 2024-09-16 07:51 | XMS_ITS | Referral Summary ---
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
[2024-09-16 08:47] LABS: Alanine Aminotransferase 49 U/L (6-35); Albumin Level 4.3 g/dL (3.5-5.1); Alkaline Phosphatase 67 U/L (38-126); Aspartate Amino Transferase 31 U/L (14-36); Bilirubin,Total 0.7 mg/dL (0.2-1.3)
[2024-09-16 08:48] LABS: Iron 94 ug/dL (37-170)
[2024-09-16 09:03] LABS: Percent Iron Saturation 32 % (20-50)
[2024-09-16 09:12] LABS: Free T4 Free Thyroxine 1.02 ng/dL (0.78-2.19)
[2024-09-17 11:44] LABS: GGT 148 U/L (3-55)
== END 2024-09-16 07:45 | disposition home or self-care (01) ==
PROVIDERS: PCP Family Medicine; Visit Provider Family Medicine
DX: R74.8 Abnormal levels of other serum enzymes (principal); R79.89 Other specified abnormal findings of blood chemistry; R79.0 Abnormal level of blood mineral
CPT/HCPCS: 36415; 80076; 82728; 82977; 83540; 83550; 84439; 84443

== ENCOUNTER 2024-11-10 07:22 | Outpatient (CLI) | payer BC, SELFPAY ==
--- NOTE | ~2024-11-10 | US_ITS ---
EXAMINATION: US breast biopsy LT w image DATE: 11/10/2024 10:35 INDICATION: 44-year-old woman with left breast mass presents for ultrasound-guided breast biopsy. TECHNIQUE: The procedure including the risks, benefits, and alternatives was discussed with the patie nt. Risks discussed included bleeding, nontargeted biopsy and infection. The patient understood the risks and agreed to proceed. The skin overlying the upper outer quadrant of the left breast was prepped and draped in usual steril e fashion. Anesthetic was administered with 1% lidocaine subcutaneously. Limited ultrasound examination of the left breast was then again performed. At the 2:00 position of the left breast in the retroareolar position is a shadowing irregular focus o f decreased echogenicity corresponding to the area of clinical concern. A 9G biopsy device was advanced into the left breast targeting the irregular mass at the 2:00 positio n. A vacuum assisted 10G biopsy device was then used to obtain 11 biopsy specimens under continuous sonographic guidance. The biopsy device was then removed, and through the 9G introducer a COIL marker was placed. The entry site was cleaned and dressed with Steri-Strips. There were no immediate complications. Post biopsy mammography was then performed in both the CC and MLO positions demonstrating the butterf ly microclip in the upper outer quadrant of the left breast without a significant perilesional hemato ma. IMPRESSION: 1. Technically successful ultrasound-guided vacuum-assisted core biopsy of a sonographic abnormality at the 2:00 position of the left breast, with post biopsy mammogram confirmation of coil marker clip placement, as detailed above. Pathology pending Pathology pending Reviewed, dictated and finalized at location A. IMPRESSION: 1. Technically successful ultrasound-guided vacuum-assisted core biopsy of a so nographic abnormality at the 2:00 position of the left breast, with post biopsy mammogram confirmation of coil marker clip placement, as detailed above. Pathology pending Pathology pending
--- NOTE | ~2024-11-10 | MM_ITS ---
EXAMINATION: MM stereotactic bx LT, MM post biopsy diagnostic LT, MM stereotactic specimen LT DATE: Kellen Alvarado INDICATION: Abnormal mammogram with [ microcalcifications in the left breast. Stereotactic core biop sy is requested evaluate for malignancy.] BREAST PARENCHYMAL COMPOSITION: The breasts are heterogeneously dense, which may obscure small masses . TECHNIQUE AND FINDINGS: The risks and potential benefits of the procedure were discussed with the patient and written informe d consent was obtained. The patient was placed in the prone position clustered at the table with the left breast in the craniocaudal compression, and the area of interest was localized and targeted uti lizing digital imaging with stereotaxis. After sterile preparation of the skin, 1% lidocaine was utilized for local anesthesia at the skin pun cture site and 1% lidocaine without epinephrine was utilized for deeper local anesthesia/is about the biopsy site. A 9G Eviva vacuum assisted biopsy needle was advanced to the level of the calcificatio n of interest from a cephalad approach utilizing stereotactic guidance and a total of 6-7 tissue core biopsies were obtained. A specimen radiograph demonstrates that the calcifications of interest are included within the tissue cores. A tissue butterfly marker clip was then placed at the biopsy site. The needle was removed a nd hemostasis was achieved. The patient tolerated the procedure well and there is no evidence of sig nificant immediate complication. IMPRESSION: 1. Technically successful stereotactic biopsy of indeterminate microcalcifications in the upper oute r quadrant of the left breast with post procedure mammogram for marker placement. Please refer to pa thology report for histologic analysis. Pathology pending Reviewed, dictated and finalized at location A. IMPRESSION: 1. Technically successful stereotactic biopsy of indeterminate microcalcificat ions in the upper outer quadrant of the left breast with post procedure mammogr am for marker placement. Please refer to pathology report for histologic jono sis. Pathology pending IMPRESSION: 1. Technically successful stereotactic biopsy of indeterminate microcalcificat ions in the upper outer quadrant of the left breast with post procedure mammogr am for marker placement. Please refer to pathology report for histologic jono sis. Pathology pending
--- OUTSIDE RECORDS SUMMARY | 2024-11-10 07:26 | XMS_ITS | Clinical Summary ---
Author Organization [facility] Address [address] [place] [address] Care Team Providers Care Fuel System Maintenance Supervisor Name Role Phone Kimani Coleman MD Primary Care Provider [phone] Allergies Active Allergy Reactions Criticality Noted Date [...] Comments Blood Pressure 149/83 07/31/2020 2:15 PM GEAR STRAIGHTENER Pulse 110 07/31/2020 2:15 PM GEAR STRAIGHTENER Temperature 36.7 C (98 F) 07/31/2020 2:15 PM GEAR STRAIGHTENER Respiratory Rate 18 07/31/2020 2:15 PM GEAR STRAIGHTENER Oxygen Saturation 100% 07/31/2020 2:15 PM GEAR STRAIGHTENER Inhaled Oxygen Concentration - - Weight 86.2 kg (190 lb) 07/31/2020 2:15 PM GEAR STRAIGHTENER Height 175.3 cm (5' 9 ) 07/31/2020 2:15 PM GEAR STRAIGHTENER Body Mass Index 28.06 07/31/2020 2:15 PM GEAR STRAIGHTENER Plan of Treatment Health Maintenance Due Date Last Done Comments Cervical Cancer Screening Pa p Smear (Age 30 to 64) Every 3 Years 1980 Annual Physical 01/31/1983 Hepatitis C 01/31/1998 DTaP, Tdap and Td Vaccines ( 1 - Tdap) 01/31/1999 Hepatitis B Vaccines (1 of 3 - 19+ 3-dose series) 01/31/1999 Pneumococcal Vaccine: Pediat rics (0 to 5 Years) and At-Risk Patients (6 to 49 Years) (1 of 2 - PCV) 01/31/1999 Cervical Cancer Screening Pa p with HPV Testing (Age 30 to 64) Every 5 Years 01/31/2010 Cervical Cancer Screening with HPV 01/31/2010 Mammogram Screening 2020 COVID-19 Vaccine (1 - 2023-2 5 season) 2024 HPV Vaccines Aged Out No longer [...] patient's age to complete this topic Insurance [facility] Care Teams Fuel System Maintenance Supervisor Relationship Specialty Start Date End Date Kimani Coleman MD [address] [place] [address] [address] [place] [id number] PCP - General FAMILY PRACTICE 09/19/19
--- OUTSIDE RECORDS SUMMARY | 2024-11-10 07:26 | XMS_ITS | Continuity of Care Document ---
Author Organization [facility] Address [address] [place] [address] [facility] [address] [place] [address] Phone Care Team Providers Care Urban Anthropologist Name Role Phone [facility] Unavailable Unavail able Nova Newman Unavailable Unavailable Advance Directives Directive Yes / No Effective Date File Name No Information Encounters Encounter Description Practice Location Reason(s) For Visit Diagnoses Date Provider Providers Copied on Encounter [facility], [address], [place], [place], [id number], [place] tel:[phone] [facility] No Information 5-200 5 [facility] [employer] [address] [facility], [address], [place], [place], [address] , [place]. tel:[phone] Consulting Provider: Nova Newman, [address] [place], [address]. tel:[phone] Family History Family Member Type Diagnosis Age At Onset No Information Payers Payer name Insurance type Covered constitution party ID Authoriza tion(s) No Information Social History [...]
--- OUTSIDE RECORDS SUMMARY | 2024-11-10 07:27 | XMS_ITS | Referral Summary ---
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
--- OUTSIDE RECORDS SUMMARY | 2024-11-10 07:27 | XMS_ITS | Clinical Summary ---
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 Gender Identity Not on file Sexual Orientation [...] season) 2024 05/10/2021, 08/15/2020, 07/25/2020 Influenza Vaccine (Season Ended) 2025 HPV Vaccines Aged Out No longer eligi ble based on patient's age to complete this topic Insurance Sleep Number [place] Sleep [place] Sleep [place] Advance Directives For more information, please contact: [phone] * Full Code (Latest Code Status on File) Date Activated Date Inactivated Comments 02/18/2023 3:50 PM 02/18/2023 8:57 PM * Full Code Date Activated Date Inactivated Comments 12/03/2022 9:31 AM 12/03/2022 2:46 PM Care Teams Press Tender Short Goods Relationship Specialty Start Date End Date Kimani Coleman MD [address] [address] PCP - General 07/31/17
== END 2024-11-10 07:23 | disposition home or self-care (01) ==
PROVIDERS: Visit Provider Surgery
DX: N63.21 Unspecified lump in the left breast, upper outer quadrant (principal); N63.42 Unspecified lump in left breast, subareolar; R92.1 Mammographic calcification found on diagnostic imaging of breast
CPT/HCPCS: 19081; 19083; 77065; 88305; 88360; A4648

== ENCOUNTER 2025-02-24 08:09 | Outpatient (CLI) | payer OTHER, BC, SELFPAY ==
--- OUTSIDE RECORDS SUMMARY | 2025-02-24 08:13 | XMS_ITS | Clinical Summary ---
Author Organization [facility] Address [address] [place] [address] Care Team Providers Care State'S Attorney Name Role Phone Kimani Coleman MD Primary Care Provider [phone] Allergies Active Allergy Reactions Criticality Noted Date [...] Comments Blood Pressure 149/83 07/31/2020 2:15 PM TANK OPERATOR Pulse 110 07/31/2020 2:15 PM TANK OPERATOR Temperature 36.7 C (98 F) 07/31/2020 2:15 PM TANK OPERATOR Respiratory Rate 18 07/31/2020 2:15 PM TANK OPERATOR Oxygen Saturation 100% 07/31/2020 2:15 PM TANK OPERATOR Inhaled Oxygen Concentration - - Weight 86.2 kg (190 lb) 07/31/2020 2:15 PM TANK OPERATOR Height 175.3 cm (5' 9) 07/31/2020 2:15 PM TANK OPERATOR Body Mass Index 28.06 07/31/2020 2:15 PM TANK OPERATOR Plan of Treatment Health Maintenance Due Date Last Done Comments Cervical Cancer Screening Pa p Smear (Age 30 to 64) Every 3 Years 1980 Colorectal Cancer Screening Colonoscopy (10 Years) 1980 Annual Physical 01/31/1983 Hepatitis C 01/31/1998 DTaP, Tdap and Td Vaccines ( 1 - Tdap) 01/31/1999 Hepatitis B Vaccines (1 of 3 - 19+ 3-dose series) 01/31/1999 Pneumococcal Vaccine: Pediat rics (0 to 5 Years) and At-Risk Patients (6 to 49 Years) (1 of 2 - PCV) 01/31/1999 HPV Vaccines (1 - 3-dose SCD M series) 01/31/2007 Cervical Cancer Screening Pa p with HPV Testing (Age 30 to 64) Every 5 Years 01/31/2010 Cervical Cancer Screening with HPV 01/31/2010 Mammogram Screening 2020 COVID-19 Vaccine ( - 2023-2 5 season) 2024 Meningococcal B Vaccine Aged Out No l onger eligible based on patient's age to complete this topic Meningococcal Vaccine Aged Out No connie aditya eligible based on patient's age to complete this topic RSV Immunizations Under 20 Months Aged Out No longer eligible based on patient's age to complete this topic Insurance [facility] Care Teams State'S Attorney Relationship Specialty Start Date End Date Kimani Coleman MD [address] [place] [address] [address] [place] [address] PCP - General FAMILY PRACTICE 09/19/19
--- OUTSIDE RECORDS SUMMARY | 2025-02-24 08:13 | XMS_ITS | Continuity of Care Document ---
Author Organization [facility] Address [address] [place] [address] [place] [address] Phone Care Team Providers Care Stringer Up Soldering Machine Name Role Phone [facility] Unavailable Unavail able Nova Newman Unavailable Unavailable Advance Directives Directive Yes / No Effective Date File Name No Information Encounters Encounter Description Practice Location Reason(s) For Visit Diagnoses Date Provider Providers Copied on Encounter [facility], [address], [place], [place], [id number], [place] tel:[phone] [facility] No Information 5-200 5 [facility] [employer] [address] [facility], [address], [place], [place], [id number] , [place]. tel:[phone] Consulting Provider: Nova Newman, [address] [place], [address]. tel:[phone] Family History Family Member Type Diagnosis Age [...]
--- OUTSIDE RECORDS SUMMARY | 2025-02-24 08:13 | XMS_ITS | Encounter Summary ---
Author Organization [facility] Address [address] [place] [address] Phone Care Team Providers Care Bender Machine Name Role Phone Kimani Coleman MD Primary Care Provider [phone] Encounter Details Date Type Department Care Team (Late st Contact Info) Description 01/18/2025 Results Follow-Up [facility] Surgery [address] [facility] Floor 8 [place] [address] Elizabeth Mills MD [facility] [address] Surgical pathology Social History Tobacco Use Types Packs/Day Years Used Date Smoking Tobacco: Former Cigarettes 0.2 25.7 1 - 04/2024 Vaping Passive Smoke Exposure: Never Smokeless Tobacco: Never AUDIT-C Answer Date Recorded Q1: How often do you have a drink containing alc ohol? 2-4 times a month 01/05/2025 Q2: How many drinks containi ng alcohol do you have on a typical day when you are drinking? 1 or 2 01/05/2025 Q3: How often do you have si x or more drinks on one occasion? Never 01/05/2025 Personal Safety Answer Date Recorded Have you ever been in or are you currently in a harmful physical or emotional relationship or is someone making you feel afraid or unsafe? 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
--- OUTSIDE RECORDS SUMMARY | 2025-02-24 08:13 | XMS_ITS | Encounter Summary ---
Author Organization [facility] Address [address] [place] [address] Phone Care Team Providers Care Technical Applications Specialist Name Role Phone Kimani Coleman MD Primary Care Provider [phone] Encounter Details Date Type Department Care Team (Late st Contact Info) Description 02/23/2025 Telephone [facility] Surgery [address] [facility] [address] [place] [address] Pippa Boyer RMA Social History Tobacco Use Types Packs/Day Years Used Date Smoking Tobacco: Former Cigarettes 0.2 25.7 1 999 - 04/2024 Vaping Passive Smoke Exposure: Never [...] on file Legal 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 Catalan today to find out if she would be having another surgery soon to distinguish her rtw date, and it doesn't look like she is. Her return to work date per pt will be 03/14/25. Paperwork has been completed, scanned to chart and faxed to number on form. Patient notified. documented in this encounter Plan of Treatment Not on file documented as of this encounter Visit Diagnoses Not on filedocumented in this encounter Care Teams Technical Applications Specialist Relationship Specialty Start Date End Date Kimani Coleman MD [email or web address] [address] PCP - General 07/31/17 documented as of this encounter
--- OUTSIDE RECORDS SUMMARY | 2025-02-24 08:13 | XMS_ITS ---
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 10/30/2022 Dermatofibroma - Left 10/23/2022 Current Treatment and Therapy Plans Leuprolide 28 Day Cycles - Breast* Plan Start Date:12/09/2024 Plan Provider:Andrea Hernandez, DO Linked Problems Malignant neoplasm of overla pping sites of left breast in female, estrogen receptor positive (HCC) Treatment Medications Current Day (Day 1 , Cycle 4 - Planned for 03/06/2025) Next Day (Day 1, Cycle 5 - Planned for 04/05/2025) leuprolide (LUPRON)leuprolid e (monthly) (LUPRON) leuprolide (LUPRON) injection 7.5 mg leuprolide (LUPRON) injection 7.5 mg Past Treatment and Therapy Plans No past plan information found.
--- OUTSIDE RECORDS SUMMARY | 2025-02-24 08:13 | XMS_ITS | Clinical Summary ---
Author Organization [facility] Address [address] [place] [address] Care Team Providers Care District Captain Name Role Phone Kimani Coleman MD Primary Care Provider [phone] Allergies Active Allergy Reactions Criticality Noted Date Comments Amoxicillin-Pot Clavulanate Vomiting Medium 01/07/20 11 Medications ALPRAZolam (XANAX) 0.25 mg tabletIndications: anxiety Take 1 tablet (0.25 mg total) by mouth 3 (three) times a day as needed for anxiety 01/05/20 23 Active busPIRone (BUSPAR) 5 mg tabletIndications: Generalized Anxiety Disorder Take 1 tablet (5 mg total) by mouth 3 (three) times a day as needed (anxiety) 12/14/19 25 Active eszopiclone (LUNESTA) 2 mg tablet TAKE 1/2 TO 1 TABLET AT BEDTIME NEEDED FOR INSOMNIA 12/29/19 25 Active cyclobenzaprine (FLEXERIL) 10 mg tabletIndications: Post Surgical Pain Take one tablet up to 3 times per day as needed for muscle spasms. 30 tablet 01/07/20 25 Active Additional Information Patient not taking.Reported on 02/07/2025 docusate sodium (COLACE) 100 mg capsuleIndications :constipation Take 1 capsule (100 mg total) by mouth 3 (three) times a day Start 2 days preop and continue 3 days post op then continue as needed 30 capsule 01/07/20 25 Active Additional Information Patient not taking.Reported on 02/07/2025 anastrozole (ARIMIDEX) 1 mg tablet Take 1 tablet (1 mg total) by mouth daily starting 02/10/25. 30 tablet 2 02/02/20 25 025 Active buPROPion XL (WELLBUTRIN XL) 300 mg 24 hr tablet Take 1 tablet (300 mg total) by mouth every morning 01/08/20 25 Active buPROPion XL (WELLBUTRIN XL) 150 mg 24 hr tabletIndications: Anxiety with Depression Take 2 tablets (300 mg total) by mouth every morning 02/06/20 23 025 Discontinu ed(Alterna te therapy) doxycycline (VIBRAMYCIN) 100 mg capsuleIndications :S/P breast reconstruction Take 1 tablet/capsule (100 mg total) by mouth every 12 (twelve) hours for 21 days Stop when GUDELIA drains are removed 42 tablet/caps ule 01/07/20 25 025 Additional Information Patient not taking.Reported on 2025 Hospital, Clinic, or Other Facility Administered Medication Ordered Dose Route Frequency Start Date End Date Status sodium chloride 0.9% solution 200 mLIndications:S/P breast reconstruction 200 mL cath Once 02/23/2025 02/24/2025 Active sodium chloride 0.9% solution 150 mLIndications:S/P breast reconstruction 150 mL IV Once 02/14/2025 02/15/2025 Ended Active Problems Problem Noted Date Diagnosed Date [...] right knee 10/30/2022 Dermatofibroma - Left 10/23/2022 Encounters Date Type Department Care Team Description 02/23/2025 9:45 AM CDT Office Visit [facility] Surgery [address] [facility] [address] [place] [address] Katerina Catalan MD S/P breast reconstruction (Primary Dx) 02/23/2025 Telephone [facility] Surgery [address] [place] [address] Pippa Boyer, A 02/14/2025 1:00 PM CDT Office Visit [facility] Surgery [address] [place] [address] Katerina Catalan MD S/P breast reconstruction (Primary Dx) 02/07/2025 10:00 AM CDT Office Visit [facility] Surgery [facility] 6th [place] [address] [place] [address] Lorne Mboley MD Seroma of breast (Primary Dx) 02/07/2025 9:00 AM CDT Office Visit [facility] Surgery [address] [place] [address] Floor 8 [place] [phone] Elizabeth Mills MD 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, estrogen receptor positive (HCC) (Primary Dx) 02/06/2025 Telephone [facility] Surgery [address] [place] [address] Floor 8 [place] [address] Josie Glaser RN 02/06/2025 Telephone [facility] Surgery [address] [place] [address] Floor 8 [place] [address] Josie Glaser RN 2025 2:00 PM CDT Infusion [facility] [place] at [address] [place] [phone] Malignant neoplasm of overlapping sites of left breast in female, estrogen receptor positive (HCC) (Primary Dx) 2025 1:20 PM CDT Office Visit [facility] Oncology [address] [place] [address] [address] [place] [phone] Tara Salmeron, MARITO Malignant neoplasm of overlapping sites of left breast in female, estrogen receptor positive (HCC) (Primary Dx) 2025 1:00 PM CDT Lab [facility] at [facility] [address] [place] [address] Malignant neoplasm of overlapping sites of left breast in female, estrogen receptor positive (HCC) 2025 Orders Only [facility] Oncology [address] [place] [address] [address] [place] [phone] Tara Salmeron NP 01/31/2025 Orders Only [facility] Oncology [address] [place] [address] [address] [place] [phone] Mali Samuel RN 01/27/2025 Orders Only [facility] Oncology [address] [place] [phone] Andrea Hernandez DO 01/26/2025 2:30 PM CDT Office Visit [facility] Surgery [address] [place] [address] [address] [place] [phone] S/P breast reconstruction (Primary Dx) 01/19/2025 10:00 AM CDT Office Visit [facility] Surgery [address] [place] [address] [address] [place] [phone] S/P breast reconstruction (Primary Dx) 01/18/2025 Results Follow-Up [facility] Surgery 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 01/11/2025 10:06 AM CDT Anesthesia Event [facility] Operating Room [address] [place] [address] Yoandy Khanna MD Wilkinson, Christina A., NP 01/11/2025 8:19 AM CDT - 01/11/2025 4:17 PM CDT Hospital Encounter [facility] Operating Room [address] [place] [address] Katerina Catalan MD Malignant neoplasm of overlapping sites of left breast in female, estrogen receptor positive (HCC) Discharge Disposition: Discharge to home or self care 01/10/2025 Orders Only [facility] Surgery [address] [place] [address] Floor 8 [place] [phone] Elizabeth Mills MD 01/06/2025 9:30 AM CDT Infusion [facility] at [facility] [address] [facility] [address] [place] [phone] Malignant neoplasm of overlapping sites of left breast in female, estrogen receptor positive (HCC) (Primary Dx) 01/05/2025 8:00 AM CDT Office Visit [facility] Surgery [address] [facility] [address] [place] [address] Katerina Catalan MD Malignant neoplasm of overlapping sites of left breast in female, estrogen receptor positive (HCC) 01/05/2025 Orders Only [facility] Physicians [facility] Oncology [facility] [address] [place] [phone] Andrea Hernandez DO 01/02/2025 Telephone [facility] Surgery [address] [place] [address] Floor 8 [place] [phone] Elizabeth Mills MD 12/20/2024 Results Follow-Up [facility] Surgery [address] [place] [address] Floor 8 [place] [phone] Elizabeth Mills MD Surgical pathology 12/19/2024 2:00 PM CDT - 12/19/2024 11:59 PM CDT Hospital Encounter [facility] [address] [place] [address] Abnormal mammogram Discharge Disposition: Discharge to home or self care 12/19/2024 1:20 PM CDT - 12/19/2024 11:59 PM CDT Hospital Encounter [facility] ([facility]) [address] [place] [address] Elizabeth Mills MD Abnormal mammogram Discharge Disposition: Discharge to home or self care 12/16/2024 8:30 AM CDT - 12/16/2024 11:59 PM CDT Hospital Encounter [facility] - Breast Imaging [address] [place] [address] Malignant neoplasm of upper-outer quadrant of left breast in female, estrogen receptor positive (HCC) Discharge Disposition: Discharge to home or self care 12/16/2024 8:17 AM CDT - 12/16/2024 11:59 PM CDT Hospital Encounter [facility] - Breast Imaging [address] [place] [address] Malignant neoplasm of upper-outer quadrant of left breast in female, estrogen receptor positive (HCC) Discharge Disposition: Discharge to home or self care 12/16/2024 8:00 AM CDT Office Visit [facility] Surgery [address] [place] [phone] Elizabeth Mills MD Malignant neoplasm of overlapping sites of left breast in female, estrogen receptor positive (HCC) (Primary Dx); Malignant neoplasm of female breast, unspecified estrogen receptor status, unspecified laterality, unspecified site of breast (HCC) 12/16/2024 Documentation [facility] Physicians [facility] Oncology [facility] [address] [place] [address] Andrea Hernandez DO 12/15/2024 Results Follow-Up [facility] Surgery [address] [place] [phone] Elizabeth Mills MD MRI Breast Bilateral W WO Contrast 12/14/2024 2:36 PM CDT - 12/14/2024 11:59 PM CDT Hospital Encounter [facility] Rad[facility]) [address] [place] [address] Malignant neoplasm of upper-outer quadrant of left breast in female, estrogen receptor positive (HCC) Discharge Disposition: Discharge to home or self care 12/12/2024 Telephone [facility] Surgery [facility] 8 [place] [phone] Elizabeth Mills MD 12/09/2024 1:45 PM CDT Infusion [facility] at [facility] [address] [place] [address] Malignant neoplasm of upper-outer quadrant of left breast in female, estrogen receptor positive (HCC) (Primary Dx) 12/09/2024 Telephone [facility] Oncology [facility] [address] [place] [address] Andrea Hernandez DO 12/09/2024 Orders Only [facility] Oncology [facility] [address] [place] [phone] Andrea Hernandez DO 12/08/2024 Orders Only [facility] Surgery [address] [place] [phone] Elizabeth Mills MD Malignant neoplasm of upper-outer quadrant of left breast in female, estrogen receptor positive (HCC) (Primary Dx) 12/07/2024 Orders Only [facility] Surgery [facility] [address] [place] [phone] Elizabeth Mills MD Malignant neoplasm of upper-outer quadrant of left breast in female, estrogen receptor positive (HCC) (Primary Dx) 12/06/2024 8:21 PM CDT - 12/06/2024 11:59 PM CDT Hospital Encounter [facility] [address] [place] [address] Discharge Disposition: Discharge to home or self care 12/02/2024 Orders Only [facility] [address] [place], [place] [address] [place] [address] Andrea Hernandez DO Malignant neoplasm of female breast, unspecified estrogen receptor status, unspecified laterality, unspecified site of breast (HCC) 12/01/2024 3:30 PM CDT Office Visit [facility] [address] [facility] [address] [place] [phone] Andrea Hernandez, Malignant neoplasm of upper-outer quadrant of left breast in female, estrogen receptor positive (HCC) (Primary Dx); Malignant neoplasm of female breast, unspecified estrogen receptor status, unspecified laterality, unspecified site of breast (HCC) 11/24/2024 Orders Only [facility] Oncology [address] [facility] [address] [place] [address] Andrea Hernandez, Malignant neoplasm of female breast, unspecified estrogen receptor status, unspecified laterality, unspecified site of breast (HCC) (Primary Dx) from Last 3 Months Immunizations Immunization Administration Dates Next Due Pfizer [...] ARTHROSCOPY Left x3; last one in 2014 BREAST BIOPSY 12/19/2024 Right BREAST BIOPSY 10/11/2024 - 11/09/2024 Left MASTECTOMY 01/11/2025 Bilateral Medical History Medical History Date Comments Adhd Anxiety Sleep apnea Wears dental dev ice at night Obesity Smoker Family History Medical History Relation Name Comments Liver cancer Father Lung cancer Father Leukemia Maternal Grandfather Prostate cancer Maternal Grandfather No Known Problems Mother Breast cancer Other Bladder Cancer Paternal Grandmother Breast cancer Paternal Grandmother Anesthesia problems Neg Hx Relation Name Status Comments Father Maternal Grandfather Maternal Grandmother Mother Alive Other Paternal Grandfather Paternal Grandmother Social History Tobacco Use Types Packs/Day Years Used Date Smoking Tobacco: Former Cigarettes 0.2 25.7 1 999 - 04/2024 Vaping Passive Smoke Exposure: Never Smokeless Tobacco: Never Tobacco Cessation:Counseling Given: Not Answered AUDIT-C Answer Date Recorded [...] on file Legal 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 Gender Identity Not on file Sexual Orientation Not on file 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 on file Not on file Not on file Obstetrics History Last Filed Vital Signs Vital Sign Reading Time Taken Comments Blood Pressure 116/79 2025 1:19 PM CDT Pulse 89 2025 1:19 PM CDT Temperature 36.7 C (98 F) 2025 1:19 PM CDT Respiratory Rate 18 2025 1:19 PM CDT Oxygen Saturation 98% 2025 1:19 PM CDT Inhaled Oxygen Concentration - - Weight 99.5 kg (219 lb 6.4 oz) 02/07/2025 8:42 A M CDT Height 175.3 cm (5' 9.02) 02/07/2025 8:42 AM CD T Body Mass Index 32.38 02/07/2025 8:42 AM CDT Plan of Treatment Health Maintenance Due Date Last Done Comments Breast Cancer Screening-Mammogram 1980 Cervical Cancer Screening 1980 Colon Cancer Screening-Colonoscopy 1980 Depression Screening 1980 Hepatitis C Screening 1980 DTaP/Tdap/Td Vaccine (1 - Tdap) 01/31/1991 Varicella Vaccines (1 of 2 - 13+ 2-dose series) 01/31/1993 Hepatitis B Screening 01/31/1998 Regular Well Visit/Exam 18-64 01/31/1998 Pneumococcal vaccine <65 (1 of 2 - PCV) 01/31/1999 Zoster Vaccine (1 of 2) 01/31/1999 HPV Vaccines (1 - 3-dose SCDM series) 01/31/2007 Covid-19 Vaccine ( season) 2024 05/10/2021, 08/15/2020, 07/25/2020 Influenza Vaccine (#1) 2025 Medical Devices Implanted Type Area Marketing Administrative Assistant Device Identifier Shelf Expiration Date Model / Serial / Lot Dev[employer]or [employer] Marker Image Hydromark Plus T5 Titanium 15ga Radiological Implant Sterile 2275-94-41-T5 - [id number] Implanted:Qty: 1 on 12/19/2024 by Subhash Lagunas MD at [facility] Right: Breast [employer] [id number] 06/30/20254009-08-1 5-T5 / / [id number] D [employer] Graft Tissue Dermis Accelular Cortiva 0.8 1.2mm 80a65au Sterile [id number] - [id number] Implanted:Qty: 1 on 01/11/2025 at [facility] Left: Breast [employer] 08/12/2027 [id number] / [id number] / [id number] [employer] High Worker Breast High Profile Round Smooth Artoura Plus 850cc Silicone [id number] - [id number] Implanted:Qty: 1 on 01/11/2025 at [facility] Left: Breast [employer] 12/17/2028 [id number] / [id number] [employer] High Worker Breast High Profile Round Smooth Artoura Plus 850cc Silicone [id number] - [id number] Implanted:Qty: 1 on 01/11/2025 at [facility] Right: Breast [employer] 12/17/2028 [id number] / [id number] Hilario [place] M[employer] P4hb Synthetic Barrow Galaflex Lite 17cm Soft Tissue Repair [id number] - [id number] Implanted:Qty: 1 on 01/11/2025 at [facility] Right: Breast Hilario Madi 02/09/2026 [id number] / / [id number] Hilario Madi [employer] P4hb Synthetic Barrow Galaflex Lite 17cm Soft Tissue Repair [id number] - [id number] Implanted:Qty: 1 on 01/11/2025 at [facility] Left: Breast Hilario Madi 02/09/2026 [id number] / / [id number] [employer] Graft Tissue Dermis Accelular Cortiva 0.8 1.2mm 75j24ck Sterile [id number] - [id number] Implanted:Qty: 1 on 01/11/2025 at [facility] Left: Breast [employer] 08/12/2027 [id number] / [id number] / [id number] Procedures Procedure Name Priority Date/Time Associated Diagnosis Comments EGFR Routine 2025 1:00 PM CDT Malignant neoplasm of overlapping sites of left breast in female, estrogen receptor positive (HCC) DIFFERENTIAL AUTO Routine 2025 1:0 0 PM CDT Malignant neoplasm of overlapping sites of left breast in female, estrogen receptor positive (HCC) CBC WITH AUTO DIFFERENTIAL Routine 2025 1:00 PM CDT Malignant neoplasm of overlapping sites of left breast in female, estrogen receptor positive (HCC) COMPREHENSIVE METABOLIC PANEL Routine 2025 1:00 PM CDT Malignant neoplasm of overlapping sites of left breast in female, estrogen receptor positive (HCC) SURGICAL PATHOLOGY Routine 01/11/2025 11:07 AM CDT Malignant neoplasm of overlapping sites of left breast in female, estrogen receptor positive (HCC) HI AN PROCEDURE PLACEHOLDER Routine 01/11/2025 10:26 AM CDT HI AN ELECTIVE SUPRAGLOTTIC AIRWAY Routine 01/11/2025 10:26 AM CDT BIOPSY SENTINEL LYMPH NODE 01/11/2025 10:11 AM CDT Malignant neoplasm of overlapping sites of left breast in female, estrogen receptor positive (HCC) Special Needs MT- TE, ADM, galaflex and prevenaJAM - blue dye MASTECTOMY SIMPLE 01/11/2025 10:11 AM CDT Malignant neoplasm of overlapping sites of left breast in female, estrogen receptor positive (HCC) Special Needs MT- TE, ADM, galaflex and prevenaJAM - blue dye TRANSFER ADJACENT TISSUE - UPPER EXTREMITY 01/11/2025 10:11 AM CDT Malignant neoplasm of overlapping sites of left breast in female, estrogen receptor positive (HCC) Special Needs MT- TE, ADM, galaflex and prevenaJAM - blue dye 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 01/11/2025 10:11 AM CDT Malignant neoplasm of overlapping sites of left breast in female, estrogen receptor positive (HCC) Special Needs MT- TE, ADM, galaflex and prevenaJAM - blue dye POCT COTININE Routine 01/11/2025 8:51 AM CDT POCT HCG, URINE Routine 01/11/2025 8:50 AM CDT ONCOTYPE DX BREAST CANCER ASSAY Routine 01/09/2025 8:28 AM CDT COLE POST CLIP PLACEMENT RIGHT Schedule Routine, Read Routine (OP Routine) 12/19/2024 2:19 PM CDT Abnormal mammogram US GUIDED BREAST BIOPSY RIGHT Schedule Routine, Read Routine (OP Routine) 12/19/2024 2:02 PM CDT Abnormal mammogram SURGICAL PATHOLOGY Routine 12/19/2024 1: 59 PM CDT Abnormal mammogram US BREAST RIGHT LIMITED Schedule Routine, Read Routine (OP Routine) 12/16/2024 10:15 AM CDT Malignant neoplasm of upper-outer quadrant of left breast in female, estrogen receptor positive (HCC) DIAGNOSTIC MAMMOGRAM RIGHT W COLE Schedule Routine, Read Routine (OP Routine) 12/16/2024 10:15 AM CDT Malignant neoplasm of upper-outer quadrant of left breast in female, estrogen receptor positive (HCC) MRI BREAST BILATERAL W WO CONTRAST Schedule Routine, Read Routine (OP Routine) 12/14/2024 3:35 PM CDT Malignant neoplasm of upper-outer quadrant of left breast in female, estrogen receptor positive (HCC) BREAST IMAGING MG PROCEDURE OUTSIDE CONSULT Routine 12/06/2024 8:21 PM CDT SURGICAL PATHOLOGY Routine 12/02/2024 6: 49 AM CDT Malignant neoplasm of female breast, unspecified estrogen receptor status, unspecified laterality, unspecified site of breast (HCC) from Last 3 Months Results * eGFR (2025 1:00 PM CDT) eGFR >90 >=60 mL/min/1. 73 m2 Comment: Interpretive Data Reference Interval Normal >/= 90 mL/min/1.73m2 Mildly decreased* 60 - 89 mL/min/1.73m2 Mildly to moderately decreased 45 - 59 mL/min/1.73m2 Moderately to severely decreased 30 - 44 mL/min/1.73m2 Severely decreased 15 - 29 mL/min/1.73m2 Kidney Failure < 15 mL/min/1.73m2 *Relative to young adult level Estimated glomerular filtration rate is determined by the 2020 CKD-EPI equation recommended by the National Kidney Foundation (A Unifying Approach to GFR Estimation: Recommendations of the NKF-ASK Task Force on Reassessing the Inclusion of Race in Diagnosing Kidney Disease, JASN 2020). The CKD-EPI equation should not be used for patients with unstable renal function and has not been validated in children and those over 70. Current interpretive data was last reviewed 2021. Testing performed by: [facility], [address] [place] [address]., [address] Blood 2025 1:00 PM CDT 2025 1:01 PM CDT us Andrea Hernandez DO LAB BLOOD ORDERABLES Final R esult [facility] [address] [facility] Department [place] [address] * Differential, auto (2025 1:00 PM CDT) Neutrophil abs 4.54 1.50 - 6.50 [facility] Comment:Testing performed by : [address], [place]., [address] Imm gran abs 0.02 0.00 - 0.10 K/cumm [facility] Comment:Testing performed by : [address], [place]., [address] Lymphocyte abs 2.15 0.80 - 3.30 K/cumm [facility] Comment:Testing performed by : [address], [place]., [address] Monocyte abs 0.37 0.20 - 0.80 K/cumm [facility] Comment:Testing performed by : [address] [address] Eosinophil abs 0.25 0.00 - 0.50 K/cumm [facility] Comment:Testing performed by : [address] [address] Basophil abs 0.04 0.00 - 0.10 K/cumm [facility] Comment:Testing performed by : [address] [address] Neutrophil pct 61.6 % [facility] Comment: Interpretive Data Percent cell count reference ranges are not reported, since discordance with absolute values may lead to misinterpretation of CBC data. Current Interpretive Data was last revised on 2017. Testing performed by: [address] [address] Imm gran pct 0.3 % [facility] Comment: Interpretive Data Percent cell count reference ranges are not reported, since discordance with absolute values may lead to misinterpretation of CBC data. Current Interpretive Data was last revised on 2017. Testing performed by: [address] [address] Lymphocyte pct 29.2 % [facility] Comment: Interpretive Data Percent cell count reference ranges are not reported, since discordance with absolute values may lead to misinterpretation of CBC data. Current Interpretive Data was last revised on 2017. Testing performed by: [address] [address] Monocyte pct 5.0 % [facility] Comment: Interpretive Data Percent cell count reference ranges are not reported, since discordance with absolute values may lead to misinterpretation of CBC data. Current Interpretive Data was last revised on 2017. Testing performed by: [address] [address] Eosinophil pct 3.4 % [facility] Comment: Interpretive Data Percent cell count reference ranges are not reported, since discordance with absolute values may lead to misinterpretation of CBC data. Current Interpretive Data was last revised on 2017. Testing performed by: [address] [address] Basophil pct 0.5 % [facility] Comment: Interpretive Data Percent cell count reference ranges are not reported, since discordance with absolute values may lead to misinterpretation of CBC data. Current Interpretive Data was last revised on 2017. Testing performed by: [address] [address] Blood 2025 1:00 PM CDT 2025 1:02 PM CDT us Andrea Hernandez DO LAB BLOOD ORDERABLES Final R esult [facility] [address] [facility] Department [place] [address] * CBC with auto differential (2025 1:00 PM CDT) WBC 7.37 3.80 - 9.90 K/cumm Comment:Testing performed by : [address] [address] Hgb 13.1 11.9 - 15.5 g/dL [facility] WHEELER Comment:Testing performed by : [address] [address] Hct 37.8 35.6 - 45.5 % [facility] WHEELER Comment:Testing performed by : [address] [address] Plt 337 150 - 400 K/cumm MIRTA WHEELER Comment:Testing performed by : [address] [address] MPV 9.6 9.1 - 12.3 fL [facility] Comment:Testing performed by : [facility], [address] [place] [address]., [address] RBC 4.32 3.90 - 5.20 M/cumm M[facility]TA Comment:Testing performed by : [address] [address] MCV 87.5 81.3 - 96.4 fL [facility] Comment:Testing performed by : [address] [address] MCH 30.3 27.1 - 33.3 pg [facility] Comment:Testing performed by : [address] [address] MCHC 34.7 32.3 - 35.7 g/dL [facility] Comment:Testing performed by : [address], [address] RDW CV 12.3 11.1 - 14.9 % M[facility] Comment:Testing performed by : [address], [address] RDW SD 39.5 35.7 - 48.1 fL [facility] Comment:Testing performed by : [address] [address] NRBC abs 0.00 0.00 - 0.01 K/cumm M[facility]TA Comment:Testing performed by : [address] [address] ANC Prelim 4.54 1.50 - 6.50 K/cumm M[facility]TA Comment: Interpretive Data The rapid ANC is a preliminary automated count and may vary from the final ANC (Neut Abs) reported in the WBC differential that follows. Current interpretive data was last revised 2024. Testing performed by: [address] [address] Blood 2025 1:00 PM CDT 2025 1:02 PM CDT Andrea Hernandez DO LAB BLOOD ORDERABLES Final R esult [facility] [address] [facility] Department [place] [address] * (ABNORMAL) Comprehensive metabolic panel (2025 1:00 PM CDT) Sodium 142 135 - 145 mmol/L Comment:Testing performed by : [address] [address] Potassium, pl 3.8 3.3 - 4.9 mmol/L M[facility] Comment:Testing performed by : [address] [address] Chloride 105 97 - 110 mmol/L [facility] Comment:Testing performed by : [address] [address] CO2 25 22 - 32 mmol/L [facility] Comment:Testing performed by : [address] [address] Anion gap 12 2 - 15 mmol/L [facility] Comment:Testing performed by : [address] [address] BUN 12 6 - 25 mg/dL [facility] Comment:Testing performed by : [address] [address] Creatinine 0.80 0.60 - 1.10 mg/dL [facility] Comment:Testing performed by : [address] [address] Glucose 129 70 - 199 mg/dL [facility] Interpretive Data Fasting glucose >/= 126 mg/dl is diagnostic for diabetes. Fasting is defined as no caloric intake for at least 8 hours. Fasting glucose between 100 mg/dl to 125 mg/dl is diagnostic of prediabetes. In a patient with classic symptoms of hyperglycemia or hyperglycemic crisis, a random glucose >/= 200 mg/dl is diagnostic for diabetes. In the absence of unequivocal hyperglycemia, results should be confirmed by repeat testing. The classification and Diagnosis of Diabetes Diabetes Care 202; 46: S19-S40. Current interpretive data was last revised 2022. Testing performed by: [address] [address] Calcium 9.0 8.5 - 10.3 mg/dL [facility] Comment:Testing performed by : [address] [address] Bilirubin, total 0.4 0.1 - 1.2 mg/dL [facility] Comment:Testing performed by : [address] [address] Protein, pl 6.5 6.5 - 8.5 g/dL [facility] Comment:Testing performed by : [address] [address] Albumin 3.9 3.5 - 5.0 g/dL [facility] Comment:Testing performed by : [address] [address] Alk phos 130 40 - 130 Units/L [facility] Comment:Testing performed by : [address] [address] ALT 61(H) 7 - 45 Units/L [facility] Comment:Testing performed by : [address] [address] AST 28 10 - 45 Units/L [facility] Comment:Testing performed by : [address] [address] Blood 2025 1:00 PM CDT 2025 1:01 PM CDT Andrea Hernandez DO LAB BLOOD ORDERABLES Final R esult Performing Organization Address City/State/[facility] Co de Phone Number [facility] [address] [facility] Department [place] [address] * Surgical pathology (01/11/2025 11:07 AM CDT) Tissue (Breast, simple mastectomy) 01/11/2025 11:07 AM CDT Comment:STITCH IN AXILLARY T AIL WEIGHT: 1052 G PLEASE ADD FORMALIN Tissue specimen (specimen) (Lymph node, sentinel breast) 01/11/2025 11:10 AM CDT Tissue specimen (specimen) (Breast, simple mastectomy) 01/11/2025 11:43 AM CDT Comment:STITCH IN AXILLARY T AIL WEIGHT: 1159G PLEASE ADD FORMALIN Tissue specimen (specimen) (Lymph node, sentinel breast) 01/11/2025 11:44 AM CDT Narrative PATHOLOGY [facility] - 01/17/2025 5:23 PM CDT EPIC results best viewed via link to PDF [facility] [place] [address] Note to Patients: This report may contain a detailed description of human tissue sent by a health care provider to the laboratory for pathologic evaluation. The content of this report is essential for diagnosis and may provide important critical findings. This information may be unfamiliar to patients to review without a medical professional present. It is advised that the patient review this report in the presence of a health care provider who can answer questions and explain the details. SURGICAL PATHOLOGY REPORT FINAL Patient Name: NAI HERNANDEZ Gender: F : 1980 (Age: 44) Address: [address] [place] [address] [facility] #: [id number] Taken:01/11/2025 Received:01/11/2025 Reported: 01/17/2025 Patient Type: [facility] EP SAME Client [facility] Service: Surgery Location: Physician(s): Monica Olivares M.D. Diagnosis: A. Breast, left, mastectomy - Invasive ductal carcinoma - Multifocal, with foci measuring 22 mm, 18 mm, 10 mm, and 2 mm - Histologic grade = 2/3 (score: tub 3 + nuc 2 + mc 1 = 6/9) by ESBR criteria - Negative for lymphovascular space invasion - Surgical margins negative: nearest = 5 mm to anterior-superior margin - Ductal carcinoma in situ (DCIS) - Not directly measurable, estimated extent = at least 50 mm - Nuclear grade = 2/3 by SBR criteria - Solid and cribriform pattern with comedonecrosis - Surgical margins negative (greater than 5 mm from all margins) - Fibroadenoma, 14 mm, involved by atypical lobular hyperplasia and lobular carcinoma in situ - Biopsy site changes - Unremarkable nipple - See synoptic report B. Lymph node, left sentinel, excision - No evidence of malignancy in one lymph node (0/1) C. Breast, right, mastectomy - Invasive ductal carcinoma - Unifocal - Greatest dimension = 12 mm - Histologic grade = 2/3 (score: tub 3 + nuc 2 + mc 1 = 6/9) by ESBR criteria - Negative for lymphovascular space invasion - Surgical margins negative (greater than 5 mm from all margins) - Ductal carcinoma in situ (DCIS) - Estimated extent = at least 18 mm - Nuclear grade = 2/3 by SBR criteria - Solid and cribriform pattern - Surgical margins negative (greater than 5 mm from all margins) - Atypical lobular hyperplasia/lobular carcinoma in situ - Biopsy site changes - Unremarkable nipple - Fibroadenoma, 8 mm - See synoptic report D. Lymph nodes, right sentinel, excision - No evidence of malignancy in two lymph nodes (0/2) [facility]/01/16/2025 14:41 By this signature, I attest that the above diagnosis is based upon my personal examination of the slides(and/or other material indicated in the diagnosis). Griselda Santos MD PhD Report Electronically Reviewed and Signed Out By Griselda Santos MD PhD 01/17/2025 17:23:25 Microscopic Description and Comment: The attending pathologist personally reviewed one or more Faxitron radiograph(s) taken for the purpose of radiographic/pathologic correlation, including localizing clip(s) and/or calcification(s). The radiographic findings were correlated with the histologic findings. The areas of interest were embedded for histologic examination. The imaging findings support the above diagnosis. Lucila Jalloh M.D. History: This is a 44-year-old woman with bilateral breast cancer. Operative procedure: bilateral mastectomy. Specimen(s) Received: A: Left breast B: Left sentinel lymph node C: Right breast D: Right sentinel lymph node Gross Description: Received in 4 jars of formalin with the patient's identifiers. A. Labeled left breast -Collected: 1107on 01/11/2025 -Received 1117 on 01/11/2025 -Placed in formalin: 1129 on 01/11/2025 -Cold ischemic time: 22 minutes -Formalin fixation time: 33.5 hours -Specimen orientation: Short stitch superior, long stitch lateral -Specimen weight: 1125.8 g -Specimen Dimensions: Medial to Lateral: 18.5 cm Superior to Inferior: 19.5 cm Anterior to Posterior: 7.0 cm -Skin: Dimensions: 6.3 x 2.5 cm Nipple/areola diameter: areola diameter 2.5 cm / nipple diameter 1.5 cm Skin lesions: None -Margins inked: Anterior/Superior: Blue Anterior/Inferior: Green Posterior: Black -Sectioned: Medial to lateral -Number of slices: 13 -Nipple/areolar complex centered in slice: 5 -Gross findings: Lesion 1: 1.4x0.6x0.3 moraes-white lesion (involving slice 1-2; location: inferomedial; Distance from margins: anterior 2.1 cm, posterior 2 cm, medial 1.1 cm, superior 7.8 cm, inferior 4.0 cm, lateral remote.) Lesion 2: 1.0x0.6x0.4 cm white circumscribed lesion (involving slices 2-3; location: superomedial; Distance from margins: anterior 1.8 cm, posterior 3.4 cm, medial 1.8 cm, superior 2.5 cm, inferior 12.0 cm, lateral remote) Lesion 3: 2.2 x1.3x0.9 cm (involving slice 6; location: subareolar; Distance from margins: anterior 0.2 cm, posterior 5.0 cm, medial 8.0 cm , superior 5 cm, inferior 4.5 cm, lateral remote) Lesion 4: 1.8x1.0x0.9 cm red-yellow stellate puckered lesion with satellite nodule included in measurement (involving slices 6 and 7; location: central; Distance from margins: anterior 3.5 cm, posterior 2.0 cm, superior 5.0 cm, inferior 10 cm, medial and lateral remote) Lesion 5: 0.8x0.6x0.4 cm (involving slices 11 and 12; location: lower outer; distance from margins: anterior 1.8 cm, posterior 0.8 cm, inferior 4.3 cm, superior 10.5 cm, medial remote, lateral 0.8 cm) One possible intramammary lymph node in Slice 10. The lesions are all by at least 10 mm (see diagram) and there is normal-appearing breast tissue between the lesions. -Specimen radiographed: Yes -Radiograph findings: A metal clip was identified in Slice 6, corresponding to lesion 4. -Summary of sections: A1 Lesion 1 (slice 1) A2 Lesion 2 (slice 2) A3 Lesion 3 with clip site and closest anterior margin (slice 6) A4 Lesion 4 (slice 7) A5 Lesion 4 with possible satellite lesion (slice 6) A6-A7 Lesion 5 bisected with closest posterior margin (slice 11) A8 Nipple bisected A9 Clay Puddler section of inner upper quadrant (slice 4) A10 [place] Puddler section of inner lower quadrant (slice 3) A11 Clay Puddler section of outer upper quadrant (slice 11) A12 Clay Puddler section of outer lower quadrant (slice 9) A13 One possible intramammary lymph node whole Jar 3. B. Labeled left sentinel lymph node is a 2.5 x 2.0 x 1.2 cm yellow-moraes fibrofatty soft tissue fragment. One lymph node measruing 2.0 cm is identified, trisected, and submitted in B1- B2. Jar 1. C. Labeled right breast -Collected: 1143 01/11/2025 -Received 1152 on 01/11/2025 -Placed in formalin: 1159 on 01/11/2025 -Cold ischemic time: 16 minutes -Formalin fixation time: 53 hours -Specimen orientation: Short stitch superior, long stitch lateral -Specimen weight: 1191.5 g -Specimen Dimensions: Medial to Lateral: 19.5 cm Superior to Inferior: 21.0cm Anterior to Posterior: 6.2 cm -Skin: Dimensions: 6.3 x 2.0 x 0.5 cm Nipple/areola diameter: 2.0 cm areola/1.0 cm nipple Skin lesions: None -Margins inked: Anterior/Superior: Blue Anterior/Inferior: Green Posterior: Black -Sectioned: Medial to lateral -Number of slices: 11 -Nipple/areolar complex centered in slice: 6-7 -Gross findings: Lesion 1 : Firm irregular 1.2x1.0x0.5 moraes-brown mass identified in slice 11; lateral margin 0.5 cm, superior margin 5 cm, inferior margin 6 cm, anterior margin 3 cm, posterior margin 2 cm and medial margin remote. Lesion 2: Firm moraes white 0.8x0.6x0.6 cm mass identified in slice 8-9 (11:30 o' clock); anterior margin 1.5 cm, superior margin 3 cm, posterior margin 4 cm, inferior margin remote, lateral margin 1.6 cm, medial margin remote. Lesion 2 is 1.0 cm superior to and 0.6 cm medial to Lesion 1. -Specimen radiographed: Yes -Radiograph findings: A metal clip was identified in slice 11. -Summary of sections: C1-C2 Lesion 1 with clip site (slice 11) C3 Lesion 2 (slice 9) C4 Tissue between Lesion 1 and Lesion 2 (slice 10) C5 Nipple C6 Clay Puddler section of lower outer quadrant (slice 10) C7 Clay Puddler sectionof upper inner quadrant (slice 2) C8 Clay Puddler section of lower inner quadrant (slice 3) C9 Lesion 2 (slice 8) D. Labeled right sentinel lymph node is a 4.5 x 3.0 x 1.5 cm yellow-moraes fibrofatty soft tissue fragment. Two possible lymph nodes are identified measuring 1.2 and 2.5 cm. D1: Smaller lymph node bisected D2: Larger lymph node bisected Jar 1. [facility]01/12/2025 16:15 Gross Resident:Lucila Jalloh M.D. CANCER CASE SUMMARY FOR INVASIVE CARCINOMA OF THE BREAST Procedure: Total mastectomy (including nipple-sparing and skin-sparing) Lymph node sampling: Dixon lymph node(s) Specimen laterality: Left Tumor site invasive carcinoma: Upper inner quadrant Central Histologic type of invasive carcinoma: Invasive ductal carcinoma (no special type or not otherwise specified) Tumor size: Greatest dimension: 22mm Histologic grade ([place] Histologic Score): Tubular differentiation: Score 3 Nuclear pleomorphism: Score 2 Mitotic rate: Score 1 Overall grade: Grade 2: scores of 6 or 7 Tumor focality: Multiple foci of invasive carcinoma Number of foci: 4 Size(s) of individual foci: 22 mm, 18 mm, 10 mm, 2 mm Ductal carcinoma in situ (DCIS): DCIS is present Negative for extensive intraductal component (EIC) Estimated size (extent) of DCIS (greatest dimension using gross & microscopic evaluation): at least 50 mm Architectural patterns: Cribriform Architectural patterns: Solid Nuclear grade: Grade 2 (intermediate) Necrosis: Present, central (expansive c omedo necrosis) Lobular carcinoma in situ (LCIS): Present Extent of tumor: Not applicable (skin, nipple, and skeletal muscle are absent or are uninvolved) Satellite foci not identified DCIS does not involve the nipple epidermis Margins for invasive carcinoma: Margins negative for invasive carcinoma Distance from superior margin: 5 mm Margins for DCIS: Margins uninvolved by DCIS Greater than 5 mm Lymph nodes: Total number of lymph nodes examined (sentinel and nonsentinel): 1 Lymph node involvement: Regional lymph nodes present All lymph nodes are negative Dixon node evaluation: H&E, multiple levels Response to presurgical therapy: No known presurgical therapy Lymphovascular Invasion: Not identified Dermal Lymphovascular Invasion: Not identified Distant Site(s) Involved, if applicable (select all that apply): Not applicable Pathologic Stage Classification (pTNM, AJCC 8th Edition): TNM descriptors: m (multiple foci of invasive carcinoma) Primary tumor (invasive carcinoma) (pT): pT2: Tumor >20 mm but <=50 mm in greatest dimension Regional Lymph Nodes (pN): Modifier: (sn): Only sentinel node(s) evaluated. Lymph nodes (pN): pN0: No regional lymph node metastasis identified Distant metastasis (pM): Not applicable Breast Biomarker Testing performed on Previous Case: [id number] Estrogen Receptor (ER): Positive Edmond score 6/8 Progesterone Receptor (PgR): Positive Edmond score 7/8 HER2 (by immunohistochemistry): Negative (Score 1+) The pathologic stage assigned here should be regarded as provisional, and may change after integration of clinical data not provided with this report. CAP VERSION: InvasiveBreast 4.10 CANCER CASE SUMMARY FOR INVASIVE CARCINOMA OF THE BREAST Procedure: Total mastectomy (including nipple-sparing and skin-sparing) Lymph node sampling: Dixon lymph node(s) Specimen laterality: Right Tumor site invasive carcinoma: 9 o c lock Distance from nipple (centimeters): 9cm Histologic type of invasive carcinoma: Invasive ductal carcinoma (no special type or not otherwise specified) Tumor size: Greatest dimension: 12mm Histologic grade ([place] Histologic Score): Tubular differentiation: Score 3 Nuclear pleomorphism: Score 2 Mitotic rate: Score 1 Overall grade: Grade 2: scores of 6 or 7 Tumor focality: Single focus of invasive carcinoma Ductal carcinoma in situ (DCIS): DCIS is present Negative for extensive intraductal component (EIC) Estimated size (extent) of DCIS (greatest dimension using gross & microscopic evaluation): at least 18 mm Architectural patterns: Cribriform Architectural patterns: Solid Nuclear grade: Grade 2 (intermediate) Necrosis: Present, focal (small foci or single cell necrosis) Lobular carcinoma in situ (LCIS): Present Extent of tumor: Not applicable (skin, nipple, and skeletal muscle are absent or are uninvolved) Satellite foci not identified DCIS does not involve the nipple epidermis Margins for invasive carcinoma: Margins negative for invasive carcinoma Greater than 5 mm from all margins Margins for DCIS: Margins uninvolved by DCIS Greater than 5 mm Lymph nodes: Total number of lymph nodes examined (sentinel and nonsentinel): 2 Number of sentinel nodes examined: 2 Lymph node involvement: Regional lymph nodes present All lymph nodes are negative Dixon node evaluation: H&E, multiple levels Response to presurgical therapy: No known presurgical therapy Not applicable Lymphovascular Invasion: Not identified Dermal Lymphovascular Invasion: Not identified Distant Site(s) Involved, if applicable (select all that apply): Not applicable Pathologic Stage Classification (pTNM, AJCC 8th Edition): Primary tumor (invasive carcinoma) (pT): pT1c: Tumor >10 mm but <=20 mm in greatest dimension Regional Lymph Nodes (pN): Modifier: (sn): Only sentinel node(s) evaluated. Lymph nodes (pN): pN0: No regional lymph node metastasis identified Breast Biomarker Testing performed on Previous Case: [id number] Estrogen Receptor (ER): Positive Edmond score 7/8 Progesterone Receptor (PgR): Positive Edmond score 8/8 HER2 (by immunohistochemistry): Negative (Score 0) The pathologic stage assigned here should be regarded as provisional, and may change after integration of clinical data not provided with this report. CAP VERSION: InvasiveBreast 4.10 By this signature, I attest that the above diagnosis is based upon my personal examination of the slides(and/or other material). Royal Muse M.D. Addenda/Procedures Microscopic slide review and interpretation for this case was performed at [facility], Department of Surgical Pathology, [address] [facility], [id number], [place] [address] CLIA # [id number] The performance characteristics of some immunohistochemical stains, fluorescence in-situ hybridization tests and immunophenotyping by flow cytometry cited in this report (if any) were determined by the Surgical Pathology and Flow Cytometry Departments at [facility] as part of an ongoing quality measurement specialist program and in compliance with federally mandated regulations drawn from the Clinical Laboratory Improvement Act of 1988 (CLIA '88). Some of these tests rely on the use of analyte specific reagents and are subject to specific labeling requirements by the US Food and Drug Administration. Such diagnostic tests may only be performed in a facility that is certified by the Department of Health and Human Services as a high complexity laboratory under CLIA '88. The FDA has determined that such clearance or approval is not necessary. This test is used for clinical purposes. It should not be regarded as investigational or for research. Nevertheless, federal rules concerning the medical use of analyte specific reagents require that the following disclaimer be attached to the report: This test was developed and its performance characteristics determined by the Surgical Pathology and Flow Cytometry Departments of [facility]. It has not been cleared or approved by the U. S. Food and Drug Administration. IMAGES AND SCANNED DOCUMENTS, IF INCLUDED, ONLY VIEWABLE IN PDF VERSION OF REPORT Katerina Catalan MD LAB PATHOLOGY ORDERABLES Fi nal Result PATHOLOGY [facility] [phone] * HI AN ELECTIVE SUPRAGLOTTIC AIRWAY, HI AN PROCEDURE PLACEHOLDER (01/11/2025 10:26 AM CDT) Narrative Mayi Perez CRNA - 01/11/2025 10:26 AM CDT Mayi Perez CRNA 01/11/2025 10:26 AM Airway Patient location: OR Urgency: elective Indications for airway management: anesthesia Difficult airway: no Staff: Placed by: BREAD JOCKEY: Mayi Perez CRNA Emergent airway documentation: Risks and benefits discussed: yes Consent obtained: yes Consent given by: patient Airway prep: Preoxygenated: yes Patient position: sniffing Mask difficulty assessment: 0 - not attempted Spontaneous ventilation during airway: absent Sedation level during airway: GA Final airway details: Final airway type: supraglottic airway Final supraglottic airway: IGel SGA size: 4 Number of attempts: 1 Ventilation between attempts: none Additional comments: Atraumatic x 1 Yoandy Khanna MD ANESTHESIA ORDERABLES Final Result * POCT cotinine (01/11/2025 8:51 AM CDT) Cotinine, POC Positive Lot Number [id number] QC Negative Control Acceptable QC Positive Control Acceptable Urine 01/11/2025 8:51 AM CDT Historical Provider POINT OF CARE TEST ORDERA BLES Final Result * POCT hCG, urine (01/11/2025 8:50 AM CDT) HCG, ur, POC Negative Negative Lot Number [id number] QC Backgroud Clear Acceptable QC Control Line Acceptable Urine 01/11/2025 8:50 AM CDT Katerina Catalan MD POINT OF CARE TEST ORDERABL ES Final Result * Oncotype DX Breast Cancer Assay (01/09/2025 8:28 AM CDT) Elizabeth Mills MD LAB BLOOD ORDERABLES Fi nal Result magnetU * Cole Post Clip Placement Right (12/19/2024 2:19 PM CDT) Anatomical Region Laterality Modality Breast Right Mammography 12/19/2024 2:35 PM CDT Addenda Addendum by Isabel Connor MD on 12/20/2024 2:59 PM CDT ADDENDUM: Pathology from biopsy of the right breast showed: Breast, right, 9:00, 9 cm from nipple, core biopsy Invasive ductal carcinoma Greatest dimension in core material = 6 mm Histologic grade = 2/3 (tub 3 + nuc 2 + mc 1 = 6/9) by ESBR criteria Biomarkers will be reported in an addendum Ductal carcinoma in situ (DCIS) Nuclear grade = 2/3 with comedonecrosis Cribriform pattern; please refer to pathology report for details. Pathology of the right breast is malignant and concordant. Surgical management is recommended. Continued surgical and oncologic management of biopsy-proven bilateral breast cancers is recommend. Results and recommendations will be discussed with the patient by [facility] or referring provider staff and will be separately documented in the medical record. Electronically signed by: Isabel Connor M.D. Impressions 12/19/2024 2:43 PM CDT 1. Successful core needle biopsy of the RIGHT breast. Pathology is pending. 2. Continued surgical and oncologic management of biopsy-proven left breast cancer. ASSESSMENT: Post Procedure Mammograms for Marker Placement Dictated by: Subhash Lagunas MD The radiology attending physician has personally reviewed this study, and had reviewed and/or edited this written report and agrees with it. Electronically signed by: Isabel Connor M.D. Narrative 12/19/2024 2:43 PM CDT EXAMINATION: RIGHT BREAST CORE BIOPSY UTILIZING SONOGRAPHIC GUIDANCE, PLACEMENT OF A BIOPSY TISSUE MARKER CLIP, AND RIGHT FULL FIELD DIGITAL MAMMOGRAM WITH DIGITAL BREAST TOMOSYNTHESIS HISTORY: Abnormal breast imaging. 44-year-old woman with newly diagnosed LEFT breast invasive ductal carcinoma with recent RIGHT diagnostic mammogram showing BI-RADS 5 mass at 9:00, 9 cm from the nipple. Ultrasound guided core needle biopsy is requested to evaluate for malignancy. COMPARISON: Multiple prior studies, most recently 12/16/2024 and dating back to 05/12/2022. BREAST PARENCHYMAL COMPOSITION: The breasts are heterogeneously dense, which may obscure small masses. PROCEDURE AND FINDINGS: The risks and potential benefits of the procedures were discussed with the patient and written informed consent was obtained. After sterile preparation of the skin, 1% lidocaine and 2% lidocaine with epinephrine were utilized for local anesthesia. A small skin incision was made with a #11 scalpel blade. A 14G spring-loaded biopsy needle was then advanced through the skin incision to the edge of the lesion of interest at 9:00, 9 cm from nipple from a lateral approach utilizing sonographic guidance. A total of 4 tissue cores were obtained through the lesion. A Mammotome [employer] dragonfly tissue marker clip was then placed at the biopsy site. Hemostasis was achieved. Dermabond bandage and an ice pack were applied. There was no evidence of significant immediate complication. The patient was given verbal as well as written post procedural instructions prior to release from the department. The tissue cores were submitted to surgical pathology in formalin for histologic analysis. A two-view RIGHT digital mammogram, including digital breast tomosynthesis, obtained post procedure demonstrates that the tissue marker clip is in expected position. The attending radiologist, Dr. Isabel Connor M.D., was present throughout the entire procedure. Dr. Lagunas (diagnostic administrative resident) also participated in this examination. Procedure Note Isabel Connor MD - 12/19/2024 EXAMINATION: RIGHT BREAST CORE BIOPSY UTILIZING SONOGRAPHIC GUIDANCE, PLACEMENT OF A BIOPSY TISSUE MARKER CLIP, AND RIGHT FULL FIELD DIGITAL MAMMOGRAM WITH DIGITAL BREAST TOMOSYNTHESIS HISTORY: Abnormal breast imaging. 44-year-old woman with newly diagnosed LEFT breast invasive ductal carcinoma with recent RIGHT diagnostic mammogram showing BI-RADS 5 mass at 9:00, 9 cm from the nipple. Ultrasound guided core needle biopsy is requested to evaluate for malignancy. COMPARISON: Multiple prior studies, most recently 12/16/2024 and dating back to 05/12/2022. BREAST PARENCHYMAL COMPOSITION: The breasts are heterogeneously dense, which may obscure small masses. PROCEDURE AND FINDINGS: The risks and potential benefits of the procedures were discussed with the patient and written informed consent was obtained. After sterile preparation of the skin, 1% lidocaine and 2% lidocaine with epinephrine were utilized for local anesthesia. A small skin incision was made with a #11 scalpel blade. A 14G spring-loaded biopsy needle was then advanced through the skin incision to the edge of the lesion of interest at 9:00, 9 cm from nipple from a lateral approach utilizing sonographic guidance. A total of 4 tissue cores were obtained through the lesion. A Mammotome [employer] dragonfly tissue marker clip was then placed at the biopsy site. Hemostasis was achieved. Dermabond bandage and an ice pack were applied. There was no evidence of significant immediate complication. The patient was given verbal as well as written post procedural instructions prior to release from the department. The tissue cores were submitted to surgical pathology in formalin for histologic analysis. A two-view RIGHT digital mammogram, including digital breast tomosynthesis, obtained post procedure demonstrates that the tissue marker clip is in expected position. The attending radiologist, Dr. Isabel Connor M.D., was present throughout the entire procedure. Dr. Lagunas (diagnostic administrative resident) also participated in this examination. IMPRESSION: 1. Successful core needle biopsy of the RIGHT breast. Pathology is pending. 2. Continued surgical and oncologic management of biopsy-proven left breast cancer. ASSESSMENT: Post Procedure Mammograms for Marker Placement Dictated by: Subhash Lagunas MD The radiology attending physician has personally reviewed this study, and had reviewed and/or edited this written report and agrees with it. Electronically signed by: Isabel Connor M.D. 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 Pathology of the right breast is malignant and concordant. Surgical management is recommended. Continued surgical and oncologic management of biopsy-proven bilateral breast cancers is recommend. Results and recommendations will be discussed with the patient by [facility] or referring provider staff and will be separately documented in the medical record. Electronically signed by: Isabel Connor M.D. Impressions 12/19/2024 2:43 PM CDT 1. Successful core needle biopsy of the RIGHT breast. Pathology is pending. 2. Continued surgical and oncologic management of biopsy-proven left breast cancer. ASSESSMENT: Post Procedure Mammograms for Marker Placement Dictated by: Subhash Lagunas MD The radiology attending physician has personally reviewed this study, and had reviewed and/or edited this written report and agrees with it. Electronically signed by: Isabel Connor M.D. Narrative 12/19/2024 2:43 PM CDT EXAMINATION: RIGHT BREAST CORE BIOPSY UTILIZING SONOGRAPHIC GUIDANCE, PLACEMENT OF A BIOPSY TISSUE MARKER CLIP, AND RIGHT FULL FIELD DIGITAL MAMMOGRAM WITH DIGITAL BREAST TOMOSYNTHESIS HISTORY: Abnormal breast imaging. 44-year-old woman with newly diagnosed LEFT breast invasive ductal carcinoma with recent RIGHT diagnostic mammogram showing BI-RADS 5 mass at 9:00, 9 cm from the nipple. Ultrasound guided core needle biopsy is requested to evaluate for malignancy. COMPARISON: Multiple prior studies, most recently 12/16/2024 and dating back to 05/12/2022. BREAST PARENCHYMAL COMPOSITION: The breasts are heterogeneously dense, which may obscure small masses. PROCEDURE AND FINDINGS: The risks and potential benefits of the procedures were discussed with the patient and written informed consent was obtained. After sterile preparation of the skin, 1% lidocaine and 2% lidocaine with epinephrine were utilized for local anesthesia. A small skin incision was made with a #11 scalpel blade. A 14G spring-loaded biopsy needle was then advanced through the skin incision to the edge of the lesion of interest at 9:00, 9 cm from nipple from a lateral approach utilizing sonographic guidance. A total of 4 tissue cores were obtained through the lesion. A Mammotome [employer] dragonfly tissue marker clip was then placed at the biopsy site. Hemostasis was achieved. Dermabond bandage and an ice pack were applied. There was no evidence of significant immediate complication. The patient was given verbal as well as written post procedural instructions prior to release from the department. The tissue cores were submitted to surgical pathology in formalin for histologic analysis. A two-view RIGHT digital mammogram, including digital breast tomosynthesis, obtained post procedure demonstrates that the tissue marker clip is in expected position. The attending radiologist, Dr. Isabel Connor M.D., was present throughout the entire procedure. Dr. Lagunas (diagnostic administrative resident) also participated in this examination. us Elizabeth Mills MD IMG MAMMO PROCEDURES Ed ited Result - Final * Surgical pathology (12/19/2024 1:59 PM CDT) Tissue (Breast biopsy, needle core) 12/19/2024 1:59 PM CDT Comment:right breast 9:00 9 cm/fn, ultrasound biopsy, birads 5 Narrative PATHOLOGY [facility] - 12/20/2024 2:43 PM CDT EPIC results best viewed via link to PDF [facility] [place] [address] Note to Patients: This report may contain a detailed description of human tissue sent by a health care provider to the laboratory for pathologic evaluation. The content of this report is essential for diagnosis and may provide important critical findings. This information may be unfamiliar to patients to review without a medical professional present. It is advised that the patient review this report in the presence of a health care provider who can answer questions and explain the details. SURGICAL PATHOLOGY REPORT FINAL WITH ADDENDUM Patient Name: NAI HERNANDEZ Gender: F : 1980 (Age: 44) Address: [address] [place] [address] [facility] #: [id number] Taken:12/19/2024 Received:12/19/2024 Reported: 12/20/2024 Patient Type: [facility] Ancillary Service: UNKNOWN Location: Physician(s): Monica Jones M.D. Julie A. Margenthaler, M.D. Diagnosis: Breast, right, 9:00, 9 cm from nipple, core biopsy - Invasive ductal carcinoma - Greatest dimension in core material = 6 mm - Histologic grade = 2/3 (tub 3 + nuc 2 + mc 1 = 12/19) by ESBR criteria - Biomarkers will be reported in an addendum - Ductal carcinoma in situ (DCIS) - Nuclear grade = 2/3 with comedonecrosis - Cribriform pattern to12/20/2024 13:22 By this signature, I attest that the above diagnosis is based upon my personal examination of the slides(and/or other material indicated in the diagnosis). Twila Bolanos MD Report Electronically Reviewed and Signed Out By Twila Bolanos MD 12/20/2024 14:43:37 Hayden Ramos M.D. History: The patient is a 44-year-old woman presenting for abnormal mammogram. Operative procedure: Right breast ultrasound biopsy BI-RADS 5. Specimen(s) Received: A: Right breast 9:00 cmfn ultrasound biopsy BIRADS 5 Gross Description: Received in formalin, labeled with the patient s identifiers and right breast 9:00 9 cm FN ultrasound biopsy BI-RADS 5 are four white yellow cores of fibrofatty tissue (measuring 1.3 to 2.2 cm in length by 0.2 cm in diameter. Labeled A1 to A2. Jar 0. Placed in formalin immediately after collection. Total fixation time= 7.0 hours. [facility]/12/19/2024 17:49 PA(s): Mayi Gibson By this signature, I attest that the above diagnosis is based upon my personal examination of the slides(and/or other material). Addenda/Procedures Addendum Ordered:12/21/2024Status:Signed OutAddendum Complete:12/21/2024y:Twila Bolanos [facility] Signed Out:12/21/2024 Addendum Diagnosis BREAST BIOMARKER RESULTS ESTROGEN RECEPTOR: Positive Edmond Score: Proportion 5/5 Intensity 2/3 Total Score 7/8 Edmond Score: Proportion 5/5 Intensity 3/3 Total Score 8/8 HER-2: negative (score 0 by IHC - no membrane staining) Her2 Interpretation Guide Score 0: No membrane staining is observed in any tumor cells; Score 0/HER-2 ultralow: Incomplete membrane staining that is faint/barely perceptible in <=10% of tumor cells; Score 1+: Incomplete membrane staining that is faint/barely perceptible in >10% of tumor cells; Score 2+: circumferential membrane staining that is weak/moderate and within >10% of tumor cells, or complete and circumferential membrane staining that is intense and within <=10% of tumor cells; Score 3+: intense and uniform circumferential membrane staining in >10% of tumor cells. A strong membranous (chicken-wire) pattern should be present. TUMOR HISTOLOGIC TYPE: Invasive ductal carcinoma (no special type) HISTOLOGICAL GRADE BY ESBR CRITERIA: 2 Technical Notes Estrogen receptor (ER), progesterone receptor (HI), and HER2 were evaluated by immunohistochemistry (IHC) by morphometric analysis in routine formalin-fixed paraffin-embedded tissue using a proprietary polymer- based detection system and instrumentation by [employer] per turnaround engineer's recommendation. The IHC results for ER (antibody SP1) and HI (antibody 1E2) were quantified and interpreted (positive vs negative) using the Edmond score (total score range = 0 to 8; positive >2) (see: Mod Pathol 11:155, 1998; J Clin Oncol 17:1474, 1998; Mod Pathol 17:1545, 2004; Arch Pathol Lab Med 144:545, 2020). Pathway Her2 is a trademark of [employer] The IHC results for Pathway Her2 (antibody 4B5 rabbit monoclonal antibody) were scored in compliance with the ASCO/CAP guidelines (see: J Clin Oncol 25:118, 2007; Arch Pathol Lab Med 131:18, 2007, Arch Pathol Lab Med 142:1364, 2018). Edmond score for estrogen and progesterone receptor evaluation: The Edmond score combines the percentage of positive cells [proportion score: 0 (0%), 1 (<1%), 2 (1-10%), 3 (11- 33%), 4 (34-66%), 5 (>67%)] and the intensity of the reaction product (intensity score: 0-3). The two scores are added together for a final score. A combined score of >2 is considered positive. Her2 Interpretation guide Score 0: No membrane staining is observed, or immunoreactivity in <=10% of tumor cells; score 1+: incomplete membrane staning that is faint/barely perceptible and within >10% of tumor cells; score 2+: circumferential membrane staining that is incomplete and/or weak/moderate and within >10% of tumor cells, or complete and circumferential membrane staining that is intense and within <=10% of tumor cells; score 3+: intense and uniform circumferential membrane staining in >10% of tumor cells. A strong membranous (chicken-wire) pattern should be present. Ki-67 Technical Note and Interpretation: Testing for Ki-67 is performed at the request of the clinical teams. Ki-67 was evaluated by immunohistochemistry (IHC) in routine formalin-fixed paraffin-embedded tissue using rabbit monoclonal antibody to Ki-67 (clone [id number])and a proprietary polymer-based detection system andinstrumentation by [employer] per turnaround engineer's recommendation. The index was determined by manual morphometric analysis of at least 3 high power carter and calculating the proportion of tumor cells with positive nuclear staining. Control expression, sample adequacy, and uniformity of staining were all assessed. For uniform staining the index is determined by 3 randomly selected high power carter and calculating the proportion of tumor cells with positive nuclear staining. For non-uniform staining, the average across the stained specimen is reported (see: J Natl Cancer Inst 103:1656, 2011). Given the absence of inter-laboratory standardization for this assay, proliferation indices must be interpreted with caution and no prognostic thresholds can be provided. Published thresholds may or may not be relevant to the reported results and findings should be interpreted in conjunction with allother relevant clinical and pathological data. By this signature, I attest that the above diagnosis is based upon my personal examination of the slides(and/or other material indicated in the diagnosis). Twila Bolanos MDReport Electronically Reviewed and Signed Out By Twila Bolanos MD 12/21/2024 12:28:15Hayden Ramos M.D. Addendum Ordered:01/03/2025Status:Signed OutAddendum Complete:01/03/2025y:Cleo Almanzar M.D.Addendum Signed Out:01/05/2025 Addendum Comment A request for Molecular Archived Tissue Testing was received, which is to be performed on tissue from the attached case. The report, slides and blocks for the case were retrieved from archives. The pathologist whose signature appears below reviewed the original pathology report, examined H&E slides, and selected the blocks appropriate to the specifications of the ordered molecular analysis. Materials were forwarded to [facility] where the Oncotype DX test will be performed. An addendum report will be issued when the results of this molecular test are available. By this signature, I attest that the above diagnosis is based upon my personal examination of the slides(and/or other material indicated in the diagnosis). Cleo Amlanzar M.D.Report Electronically Reviewed and Signed Out By Cleo Almanzar M.D. 01/05/2025 16:30:04 Addendum Ordered:01/12/2025Status:Signed OutAddendum Complete:01/12/2025y:Cleo Almanzar M.D.Addendum Signed Out:01/12/2025 Addendum Diagnosis A digital scan of the original reference lab report will begin on page two of this addendum. This testing was ordered at the request of Dr. Elizabeth Mills. Block A1 was selected, and sent for the testing referenced below. By this signature, I attest that the above diagnosis is based upon my personal examination of the slides(and/or other material indicated in the diagnosis). Cleo Almanzar M.D.Report Electronically Reviewed and Signed Out By Cleo Almanzar M.D. 01/12/2025 16:35:58 The Oncotype Dx Invasive Breast Cancer Assay test was performed by [address], [place] [address]. The performance characteristics of some immunohistochemical stains, fluorescence in-situ hybridization tests and immunophenotyping by flow cytometry cited in this report (if any) were determined by the Surgical Pathology and Flow Cytometry Departments at [facility] as part of an ongoing quality measurement specialist program and in compliance with federally mandated regulations drawn from the Clinical Laboratory Improvement Act of 1988 (CLIA '88). Some of these tests rely on the use of analyte specific reagents and are subject to specific labeling requirements by the US Food and Drug Administration. Such diagnostic tests may only be performed in a facility that is certified by the Department of Health and Human Services as a high complexity laboratory under CLIA '88. The FDA has determined that such clearance or approval is not necessary. This test is used for clinical purposes. It should not be regarded as investigational or for research. Nevertheless, federal rules concerning the medical use of analyte specific reagents require that the following disclaimer be attached to the report: This test was developed and its performance characteristics determined by the Surgical Pathology and Flow Cytometry Departments of [facility]. It has not been cleared or approved by the U. S. Food and Drug Administration. IMAGES AND SCANNED DOCUMENTS, IF INCLUDED, ONLY VIEWABLE IN PDF VERSION OF REPORT us Elizabeth Mills MD LAB PATHOLOGY ORDERABLE S Final Result PATHOLOGY [facility] 3rd Floor [place], [place] [phone] * (ABNORMAL) US Breast Right Limited (12/16/2024 10:15 AM CDT) Anatomical Region Laterality Modality Breast Right Ultrasound 12/16/2024 10:5 8 AM CDT Impressions 12/16/2024 1:35 PM CDT There are both mammographic and sonographic correlates for MRI findings in the RIGHT breast discussed on 12/14/2024 MRI. 1. Irregular 1.0 cm hypoechoic mass in the RIGHT lateral breast at the 9:00 position. Ultrasound-guided biopsy of this mass is recommended. 2. Hypoechoic, irregular mass(es) the RIGHT upper outer breast likely represent enlarged RIGHT intramammary lymph node(s). 3. No RIGHT axillary lymphadenopathy. OVERALL FINAL ASSESSMENT: BI-RADS Category 5: Highly Suggestive of Malignancy. RECOMMENDATION: Ultrasound guided biopsy of mass in the RIGHT lateral breast at 9:00 is recommended. This case was discussed with referring physician. Continued clinical and oncologic management of known malignancy. Dr. Cruz and Max discussed the above findings and recommendations with the patient. She has been scheduled for biopsy on 12/19/2024. This facility will contact the referring clinician's office for an order. Dictated by: Parveen Cruz M.D. The radiology attending physician has personally reviewed this study, and had reviewed and/or edited this written report and agrees with it. Electronically signed by: Koko Santana MD Narrative 12/16/2024 1:35 PM CDT EXAMINATION: RIGHT UNILATERAL DIGITAL DIAGNOSTIC MAMMOGRAM AND DIGITAL BREAST TOMOSYNTHESIS; RIGHT BREAST SONOGRAM, RIGHT AXILLARY SONOGRAM HISTORY: 44-year-old with newly diagnosed multifocal LEFT breast invasive ductal carcinoma with recent MRI demonstrating multiple findings in the RIGHT breast. Additionally, no recorded diagnostic mammogram of the RIGHT breast which was found to have a spiculated mass on recent consult. COMPARISON: 11/10/2024, 10/10/2024, 09/29/2024, 06/03/2022 mammograms. Breast MRI 12/14/2024. Outside facility ultrasound 11/10/2024. TECHNIQUE: Full field digital mammographic views of the RIGHT breast were performed, including computer aided detection (CAD) and digital breast tomosynthesis (DBT). Directed ultrasound evaluation of the RIGHT breast was performed. Sonography of the right axilla was also performed. BREAST PARENCHYMAL COMPOSITION: The breasts are heterogeneously dense, which may obscure small masses. MAMMOGRAM FINDINGS: Within the far upper outer RIGHT breast, there is a persistent mass , at posterior to mid depth. Additionally, in the central, outer RIGHT breast there is a persistent spiculated mass located at posterior depth. SONOGRAM FINDINGS: RIGHT breast, 9:00, 9 cm from the nipple: There is an irregular 1.0 x 0.9 x 0.8 cm hypoechoic mass with posterior acoustic shadowing and antiparallel configuration. There is contiguous extension along the superolateral margin measuring up to 0.4 cm. RIGHT breast, 11:00, 11 cm from the nipple: There is an irregular 1.4 x 0.7 x 1 cm hypoechoic mass, either representing an abnormal intramammary lymph node or an aggregate of abnormal lymph nodes. The RIGHT axilla was also scanned and did not demonstrate any sonographically suspicious RIGHT axillary lymph nodes. us Elizabeth Mills MD IMG MAMMO PROCEDURES Fi nal Result * (ABNORMAL) Diagnostic Mammogram Right [facility] (12/16/2024 10:15 AM CDT) Anatomical Region Laterality Modality Breast Right Mammography 12/16/2024 10:5 8 AM CDT Impressions 12/16/2024 1:35 PM CDT There are both mammographic and sonographic correlates for MRI findings in the RIGHT breast discussed on 12/14/2024 MRI. 1. Irregular 1.0 cm hypoechoic mass in the RIGHT lateral breast at the 9:00 position. Ultrasound-guided biopsy of this mass is recommended. 2. Hypoechoic, irregular mass(es) the RIGHT upper outer breast likely represent enlarged RIGHT intramammary lymph node(s). 3. No RIGHT axillary lymphadenopathy. OVERALL FINAL ASSESSMENT: BI-RADS Category 5: Highly Suggestive of Malignancy. RECOMMENDATION: Ultrasound guided biopsy of mass in the RIGHT lateral breast at 9:00 is recommended. This case was discussed with referring physician. Continued clinical and oncologic management of known malignancy. Dr. Cruz and Max discussed the above findings and recommendations with the patient. She has been scheduled for biopsy on 12/19/2024. This facility will contact the referring clinician's office for an order. Dictated by: Parveen Cruz M.D. The radiology attending physician has personally reviewed this study, and had reviewed and/or edited this written report and agrees with it. Electronically signed by: Koko Santana MD Narrative 12/16/2024 1:35 PM CDT EXAMINATION: RIGHT UNILATERAL DIGITAL DIAGNOSTIC MAMMOGRAM AND DIGITAL BREAST TOMOSYNTHESIS; RIGHT BREAST SONOGRAM, RIGHT AXILLARY SONOGRAM HISTORY: 44-year-old with newly diagnosed multifocal LEFT breast invasive ductal carcinoma with recent MRI demonstrating multiple findings in the RIGHT breast. Additionally, no recorded diagnostic mammogram of the RIGHT breast which was found to have a spiculated mass on recent consult. COMPARISON: 11/10/2024, 10/10/2024, 09/29/2024, 06/03/2022 mammograms. Breast MRI 12/14/2024. Outside facility ultrasound 11/10/2024. TECHNIQUE: Full field digital mammographic views of the RIGHT breast were performed, including computer aided detection (CAD) and digital breast tomosynthesis (DBT). Directed ultrasound evaluation of the RIGHT breast was performed. Sonography of the right axilla was also performed. BREAST PARENCHYMAL COMPOSITION: The breasts are heterogeneously dense, which may obscure small masses. MAMMOGRAM FINDINGS: Within the far upper outer RIGHT breast, there is a persistent mass , at posterior to mid depth. Additionally, in the central, outer RIGHT breast there is a persistent spiculated mass located at posterior depth. SONOGRAM FINDINGS: RIGHT breast, 9:00, 9 cm from the nipple: There is an irregular 1.0 x 0.9 x 0.8 cm hypoechoic mass with posterior acoustic shadowing and antiparallel configuration. There is contiguous extension along the superolateral margin measuring up to 0.4 cm. RIGHT breast, 11:00, 11 cm from the nipple: There is an irregular 1.4 x 0.7 x 1 cm hypoechoic mass, either representing an abnormal intramammary lymph node or an aggregate of abnormal lymph nodes. The RIGHT axilla was also scanned and did not demonstrate any sonographically suspicious RIGHT axillary lymph nodes. us Elizabeth Mills MD IMG MAMMO PROCEDURES Fi nal Result * (ABNORMAL) MRI Breast Bilateral W WO Contrast (12/14/2024 3:35 PM CDT) Anatomical Region Laterality Modality Breast Bilateral Magnetic Resonan ce 12/15/2024 11:1 7 AM CDT Impressions 12/15/2024 11:59 AM CDT 1. Findings concerning for multicentric LEFT breast cancer with multiple enhancing masses (at least 7) involving the upper hemisphere of the LEFT breast, two of which were recently biopsy-proven to represent invasive ductal carcinoma. There is a 4 mm satellite lesion adjacent to the biopsy-proven malignancy in the subareolar left breast which is just deep to the skin surface. 2. Enhancing 1.0 cm mass in the upper outer RIGHT breast posterior depth corresponds to previously referenced spiculated mass in the upper outer right breast on mammogram and is at high suspicion for malignancy (BI-RADS 4C). A 2nd look diagnostic mammogram and ultrasound is recommended for further evaluation. If there is no correlate for this mass on ultrasound or mammogram, MRI guided biopsy is recommended. 3. Three adjacent enhancing masses in the upper outer RIGHT breast. In retrospect, there may be a mammographic correlate for this finding in the upper right breast on the MLO view on screening mammogram 09/29/2024. Regardless, a 2nd look diagnostic mammogram and ultrasound is also recommended for these masses. In the absence of a mammographic or sonographic correlate, further management can be guided by the results of biopsy from finding from impression point #2. Specifically, if biopsy of the finding described in impression point #2 is malignant and the patient desires breast conservation therapy, an MRI guided biopsy can be considered for this finding. 4. RIGHT axillary sonography is recommended as per prior consultation report. OVERALL FINAL ASSESSMENT: SUSPICIOUS. BI-RADS Category 4C: High suspicion for malignancy. RECOMMENDATION: 1. Right diagnostic mammogram and ultrasound is recommended for: - Mass in the upper outer RIGHT breast (F- 27.6). If no mammographic or sonographic correlate is found, MRI-guided biopsy is recommended. - 3 enhancing masses in the upper outer RIGHT breast (H28.4). In the absence of a mammographic or sonographic correlate, further management can be guided by the results of biopsy the mass in the upper outer right breast at F- 27.6. Specifically, if biopsy of the mass at F- 27.6 is malignant and the patient desires breast conservation therapy, an MRI guided biopsy can be considered for this finding. 2. RIGHT axillary ultrasound. 3. Surgical and oncologic management of biopsy-proven left breast malignancy is recommended. Dictated by: Parveen Cruz M.D. The radiology attending physician has personally reviewed this study, and had reviewed and/or edited this written report and agrees with it. Electronically signed by: Isabel Connor M.D. Narrative 12/15/2024 11:59 AM CDT EXAMINATION: 1. MRI EXAMINATION OF THE BREASTS WITH AND WITHOUT CONTRAST 2. 3D POST PROCESSING ON A DEDICATED 3D WORKSTATION HISTORY: Staging. 44-year-old with newly diagnosed multifocal LEFT breast invasive ductal carcinoma (biopsy-proven at 2 sites). Outside facility images were submitted for consultation. Per consultation, there was an additional suspicious LEFT breast mass at 1:00, which was not biopsied and concerning for an additional site of disease. There is also a suspicious RIGHT upper outer quadrant mass for which additional imaging was recommended with right diagnostic mammogram and ultrasound. TECHNIQUE: MRI examination of the breasts per breast tumor protocol with and without gadolinium contrast. A dedicated breast imaging coil was used. The images were transferred to a breast CAD system for 3D post processing and contrast kinetics analysis. CONTRAST: Gadoterate meglumine, 20 ml COMPARISON: Multiple prior studies, most recently 11/10/2024 and dating back to 08/24/2023. BREAST COMPOSITION: Heterogeneous fibroglandular tissue BACKGROUND PARENCHYMAL ENHANCEMENT: Mild FINDINGS: LEFT BREAST: In the LEFT breast there are numerous enhancing, spiculated masses, at least 7, throughout the upper hemisphere of the left breast. Index lesions include: * 1.1 x 1.4 cm enhancing mass with washout kinetics in the central , slightly upper at the 12:30 o'clock position (H2.4) with adjacent satellite lesions. * 1.2 x 1.3 cm spiculated, enhancing mass in the subareolar, slightly upper LEFT breast with adjacent Hydromark biopsy clip (F- 12.6). There is an adjacent 4 mm enhancing satellite lesion immediately deep to the skin near this mass (F- 18.6). * 1.2 x 1.1 cm spiculated enhancing mass in the LEFT upper outer breast (H 23.4). An internal [place]-irena tissue biopsy marker noted. * 1.0 x 0.8 cm irregular enhancing mass In the LEFT upper inner breast (H 37.4). There is no involvement of the nipple areolar complex or pectoralis muscle. RIGHT BREAST: In the upper outer RIGHT breast posterior depth, there is a 1.0 x 0.8 cm irregular enhancing mass with mixed kinetics (F- 27.6). This corresponds to the spiculated mass in the upper outer right breast on the screening mammogram. Additionally, in the RIGHT upper outer breast, there are 3 adjacent enhancing masses measuring up to 1.9 cm in aggregate (H 28.4). In retrospect, there may be a mammographic correlate in the upper right breast on the MLO view on the screening mammogram from 09/29/2024. No abnormally enlarged lymph nodes are identified in the visualized portions of either axilla. us Elizabeth Mills MD IMG MRI PROCEDURES Kanika l Result * Breast Imaging Procedure Outside Consult (12/06/2024 8:21 PM CDT) Anatomical Region Laterality Modality Breast N/A Mammography 12/07/2024 10:0 2 AM CDT Impressions 12/07/2024 10:15 AM CDT 1. Multifocal LEFT breast invasive ductal carcinoma (biopsy-proven at 2 sites). 2. An irregular mass in the LEFT upper slightly outer breast at 1:00 mid to posterior depth is suspicious for an additional site of disease. Breast MRI is recommended to evaluate the full extent of disease in the LEFT breast. 3. A spiculated mass in the RIGHT upper outer quadrant posterior depth is suspicious for malignancy. Further evaluation with RIGHT diagnostic mammogram and ultrasound is recommended. Patient will likely need ultrasound guided biopsy of right breast mass. OVERALL FINAL ASSESSMENT: BI-RADS Category 0: Incomplete - Need Additional Imaging Evaluation. RECOMMENDATION: 1. Additional imaging - RIGHT breast diagnostic mammogram and ultrasound for further evaluation of the spiculated mass in the RIGHT breast upper outer quadrant. Pending diagnostic imaging, ultrasound-guided biopsy will likely be recommended. 2. Repeat RIGHT axillary ultrasound is also recommended. 3. Breast MRI with and without contrast is recommended to evaluate the full extent of disease. 4. Clinical and oncologic management of known LEFT breast malignancy. NOTE: The findings, conclusions and recommendations within this report do not replace the initial findings, conclusions and recommendations made at the facility where the study was performed based upon the imaging and clinical condition at that time. Review of the prior report and correlation with the clinical history are necessary. The provided images may or may not represent the [place] source data set and thus may contain changes which may lower the sensitivity of the second opinion interpretation. Dictated by: Luis Sparks M.D. The radiology attending physician has personally reviewed this study, and had reviewed and/or edited this written report and agrees with it. Electronically signed by: Edna Johnson M.D. Narrative 12/07/2024 10:15 AM CDT EXAMINATION: REVIEW AND INTERPRETATION OF OUTSIDE IMAGING FACILITY PERFORMING OUTSIDE IMAGING: [facility] EXAM(S) REVIEWED: 1. BILATERAL SCREENING MAMMOGRAM WITH TOMOSYNTHESIS, 09/29/2024 2. LEFT UNILATERAL DIAGNOSTIC MAMMOGRAM, 10/10/2024 3. LEFT UNILATERAL DIAGNOSTIC MAMMOGRAM, 11/10/2024 DATE OF INTERPRETATION: 12/07/2024 HISTORY: 44-year-old woman with newly diagnosed multifocal LEFT breast invasive ductal carcinoma (biopsy-proven at 2 sites). COMPARISON: Prior exams which date back to 03/22/2021, the most recent on 08/24/2023. BREAST PARENCHYMAL COMPOSITION: The breasts are heterogeneously dense, which may obscure small masses. FINDINGS: BILATERAL SCREENING MAMMOGRAM on 09/29/2024: There is a spiculated mass in the RIGHT upper outer quadrant posterior depth at the 10 o'clock position. There are grouped calcifications with an associated focal asymmetry in the LEFT slightly upper outer subareolar region. There are grouped calcifications with an associated focal asymmetry in the LEFT upper outer quadrant anterior to mid depth. There is an irregular mass in the LEFT upper slightly outer breast at 1:00 mid to posterior depth. LEFT DIAGNOSTIC MAMMOGRAM on 10/10/2024: There are persistent grouped calcifications with an associated focal asymmetry in the LEFT slightly upper outer subareolar region. There are persistent grouped calcifications with an associated focal asymmetry in the LEFT upper outer quadrant anterior to mid depth. There is a persistent irregular mass in the LEFT upper slightly outer breast at 1:00 mid to posterior depth. Outside hospital ultrasound was performed of both breasts and reportedly demonstrated an irregular hypoechoic mass in the LEFT breast retroareolar region at 2:00 measuring 2 cm. Heterogenous areas in the LEFT breast at 1:00 reportedly appeared stable compared to prior exam. An intramammary lymph node was noted in the LEFT breast at 3:00 and was felt to be benign. No suspicious sonographic abnormalities were reported in the RIGHT breast. There were reportedly benign-appearing lymph nodes in the axillae bilaterally. On 11/10/2024, stereotactic-guided biopsy was performed of the LEFT upper outer breast grouped calcifications with placement of a butterfly-shaped tissue marker. Pathology demonstrated invasive ductal carcinoma and ductal carcinoma in situ. Ultrasound-guided biopsy was also performed of the LEFT breast mass at 2:00 subareolar region with placement of a coil-shaped tissue marker. Pathology demonstrated invasive ductal carcinoma. LEFT DIAGNOSTIC MAMMOGRAM on 10/10/2024: Postbiopsy LEFT mammogram demonstrates that the butterfly and coil tissue markers are in expected positions. Procedure Note Edna Johnson MD - 12/07/2024 EXAMINATION: REVIEW AND INTERPRETATION OF OUTSIDE IMAGING FACILITY PERFORMING OUTSIDE IMAGING: [facility] EXAM(S) REVIEWED: 1. BILATERAL SCREENING MAMMOGRAM WITH TOMOSYNTHESIS, 09/29/2024 2. LEFT UNILATERAL DIAGNOSTIC MAMMOGRAM, 10/10/2024 3. LEFT UNILATERAL DIAGNOSTIC MAMMOGRAM, 11/10/2024 DATE OF INTERPRETATION: 12/07/2024 HISTORY: 44-year-old woman with newly diagnosed multifocal LEFT breast invasive ductal carcinoma (biopsy-proven at 2 sites). COMPARISON: Prior exams which date back to 03/22/2021, the most recent on 08/24/2023. BREAST PARENCHYMAL COMPOSITION: The breasts are heterogeneously dense, which may obscure small masses. FINDINGS: BILATERAL SCREENING MAMMOGRAM on 09/29/2024: There is a spiculated mass in the RIGHT upper outer quadrant posterior depth at the 10 o'clock position. There are grouped calcifications with an associated focal asymmetry in the LEFT slightly upper outer subareolar region. There are grouped calcifications with an associated focal asymmetry in the LEFT upper outer quadrant anterior to mid depth. There is an irregular mass in the LEFT upper slightly outer breast at 1:00 mid to posterior depth. LEFT DIAGNOSTIC MAMMOGRAM on 10/10/2024: There are persistent grouped calcifications with an associated focal asymmetry in the LEFT slightly upper outer subareolar region. There are persistent grouped calcifications with an associated focal asymmetry in the LEFT upper outer quadrant anterior to mid depth. There is a persistent irregular mass in the LEFT upper slightly outer breast at 1:00 mid to posterior depth. Outside hospital ultrasound was performed of both breasts and reportedly demonstrated an irregular hypoechoic mass in the LEFT breast retroareolar region at 2:00 measuring 2 cm. Heterogenous areas in the LEFT breast at 1:00 reportedly appeared stable compared to prior exam. An intramammary lymph node was noted in the LEFT breast at 3:00 and was felt to be benign. No suspicious sonographic abnormalities were reported in the RIGHT breast. There were reportedly benign-appearing lymph nodes in the axillae bilaterally. On 11/10/2024, stereotactic-guided biopsy was performed of the LEFT upper outer breast grouped calcifications with placement of a butterfly-shaped tissue marker. Pathology demonstrated invasive ductal carcinoma and ductal carcinoma in situ. Ultrasound-guided biopsy was also performed of the LEFT breast mass at 2:00 subareolar region with placement of a coil-shaped tissue marker. Pathology demonstrated invasive ductal carcinoma. LEFT DIAGNOSTIC MAMMOGRAM on 10/10/2024: Postbiopsy LEFT mammogram demonstrates that the butterfly and coil tissue markers are in expected positions. IMPRESSION: 1. Multifocal LEFT breast invasive ductal carcinoma (biopsy-proven at 2 sites). 2. An irregular mass in the LEFT upper slightly outer breast at 1:00 mid to posterior depth is suspicious for an additional site of disease. Breast MRI is recommended to evaluate the full extent of disease in the LEFT breast. 3. A spiculated mass in the RIGHT upper outer quadrant posterior depth is suspicious for malignancy. Further evaluation with RIGHT diagnostic mammogram and ultrasound is recommended. Patient will likely need ultrasound guided biopsy of right breast mass. OVERALL FINAL ASSESSMENT: BI-RADS Category 0: Incomplete - Need Additional Imaging Evaluation. RECOMMENDATION: 1. Additional imaging - RIGHT breast diagnostic mammogram and ultrasound for further evaluation of the spiculated mass in the RIGHT breast upper outer quadrant. Pending diagnostic imaging, ultrasound-guided biopsy will likely be recommended. 2. Repeat RIGHT axillary ultrasound is also recommended. 3. Breast MRI with and without contrast is recommended to evaluate the full extent of disease. 4. Clinical and oncologic management of known LEFT breast malignancy. NOTE: The findings, conclusions and recommendations within this report do not replace the initial findings, conclusions and recommendations made at the facility where the study was performed based upon the imaging and clinical condition at that time. Review of the prior report and correlation with the clinical history are necessary. The provided images may or may not represent the [place] source data set and thus may contain changes which may lower the sensitivity of the second opinion interpretation. Dictated by: Luis Sparks M.D. The radiology attending physician has personally reviewed this study, and had reviewed and/or edited this written report and agrees with it. Electronically signed by: Edna Johnson M.D. Elizabeth Mills MD IMG MAMMO PROCEDURES Fi nal Result * Surgical pathology (12/02/2024 6:49 AM CDT) Tissue (Miscellaneous) 12/02/2024 6:49 AM CDT 12/02/2024 6:[address] [facility] - 12/15/2024 9:13 AM CDT EPIC results best viewed via link to PDF [facility] Pathology Consult Service [address], [place] [address] Note to Patients: This report may contain a detailed description of human tissue sent by a health care provider to the laboratory for pathologic evaluation. The content of this report is essential for diagnosis and may provide important critical findings. This information may be unfamiliar to patients to review without a medical professional present. It is advised that the patient review this report in the presence of a health care provider who can answer questions and explain the details. SURGICAL PATHOLOGY REPORT * Consult Report * [facility] is providing an additional review of previously collected tissue. FINAL Patient Name: NAI HERNANDEZ Address: [address] [place] [address] Gender: F : 1980 (Age: 44) Hospital #: [id number] Patient Type: [facility] Location: UNKNOWN Taken: 12/02/2024 Received: 12/02/2024 Accessioned: 12/06/2024 Reported: 12/15/2024 Physician(s): Lesa RicciO. [facility] Department of Pathology [address] [place] [id number] P: [phone] F: [phone] Diagnosis: Consult material received from [place], [place] (OSC: [id number]; 11/10/2024). A. 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 Breast, left, upper outer quadrant (2:00), core biopsy - Invasive ductal carcinoma - Greatest microscopic dimension = 7 mm - Histologic grade = 2/3 (tub 3 + nuc 2 + mc 1 = 6/9) by ESBR criteria C. Breast, left, retroareolar, 2:00, core biopsy - Invasive ductal carcinoma - Greatest microscopic dimension = 9 mm - Histologic grade = 2/3 (tub 3 + nuc 2 + mc 2 = 7/9) by ESBR criteria [facility]12/07/2024 13:21 By this signature, I attest that the above diagnosis is based upon my personal examination of the slides(and/or other material indicated in the diagnosis). Femi Liz MD PhD Report Electronically Reviewed and Signed Out By Femi iLz MD PhD 12/15/2024 09:13:18 Microscopic Description and Comment: Unless gross-only is specified, the final diagnosis for each specimen is based on a microscopic examination of each tissue sample. Royal Muse M.D. History: The patient is a 44-year-old woman with left breast cancer. Materials Received: Received for review are ten slides labeled [id number], accompanied by a corresponding pathology report. The material originates from [place], [place]. Selected slide(s) may be digitally scanned for our files, and all materials are returned to the referring institution, along with a copy of our final report. Any testing required for diagnostic purposes was performed in the Department of Pathology and Immunology at [facility], [address] [place] [address]. [place] [address] CLIA # [id number] The performance characteristics of the testing cited in this report (if any) were determined by the [facility] Department of Pathology and Immunology [facility], as part of an ongoing quality measurement specialist program and in compliance with federally mandated regulations drawn from the Clinical Laboratory Improvement Act of 1988 (CLIA '88). Some of these tests rely on the use of analyte specific reagents (ASR) and are subject to specific labeling requirements by the US Food and Drug Administration. Such diagnostic tests may only be performed in a facility that is certified by the Department of Health and Human Services as a high complexity laboratory under CLIA '88. The FDA has determined that such clearance or approval is not necessary. ASRs should not be regarded as investigational or for research. ASRs were developed and the performance characteristics determined by the [facility], [facility] Department of Pathology and Immunology. It has not been cleared or approved by the U.S. Food and Drug Administration. Any test designated as LDT was developed and its performance characteristics determined by [facility]. It has not been cleared or approved by the FDA. This test is used for clinical purposes and should not be regarded as investigational or for research. Report images and/or scanned reports, if included, only viewable in PDF version of report. Andrea Hernandez DO LAB PATHOLOGY ORDERABLES Fin al Result [facility] [address] [address] from Last [address] [place] [address] Withings [facility] OPEN ACCESS [employer] [place] [employer] [place] [employer] OPEN ACCESS Advance Directives For more information, please contact: [phone] * Full Code (Latest Code Status on File) Date Activated Date Inactivated Comments 02/18/2023 3:50 PM 02/18/2023 8:57 PM * Full Code Date Activated Date Inactivated Comments 12/03/2022 9:31 AM 12/03/2022 2:46 PM Care Teams District Captain Relationship Specialty Start Date End Date Kimani Coleman MD [address] [address] PCP - General 07/31/17
--- OUTSIDE RECORDS SUMMARY | 2025-02-24 08:13 | XMS_ITS | Encounter Summary ---
Author Organization [facility] Address [address] [place] [address] Phone Care Team Providers Care Application Software Engineer Name Role Phone Kimani Coleman MD Primary Care Provider [phone] Reason for Visit * Reason Comments Post-op Encounter Details Date Type Department Care Team (Latest Contact Info) Description 02/23/2025 9:45 AM CDT Office Visit [facility] [address] [place] [address] Katerina Catalan MD [address] [place] [address] S/P breast reconstruction (Primary Dx) Social History Tobacco Use Types Packs/Day Years [...] on file Legal Sex Female 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 On exam her right tongue and groove machine setter remains more full in appearance compared to the left. I do not think I punctured it last week with her fill it is possible she still has some seroma but on palpation I can feel the port much more easily than I could before and I do not feel any fluid wave. There is no evidence of infection. I recommend we continue with fills of both expanders every 2 weeks until she feels she is at an adequate size. She can also begin to resume normal activity as she feels up for it. She should alert me to any concerns or problems * Kellen Cespedes RN - 02/23/2025 9:45 AM CDT Patient Name: Nai Edwards : 1980 Date of Service: 02/23/25 Ms. Nai Edwards arrives today for fill of bilateral tissue expanders. Breast tissue is supple, incisions are well-healed. RIGHT breast at the 1-2 O' clock area has a protruding bulge. It is possible the tongue and groove machine setter is foldedover at that position. The RIGHT breast drained a small amount of serous fluid after the fill. Placed a 4x4 gauze over it. All of her questions were addressed. Today we filled her bilateral tissue expanders with 100 ml saline using a 21G 1 ? needle, after locating and prepping each port per protocol. She tolerated this procedure without any complications. She is scheduled to follow up in 2 weeks for an additional fill and has been encouraged to call sooner with any questions or concerns. CAPACITY: 850 cc DATE AMT ADDED TOTAL IN SURG 0 cc B 0/850 B 02/07/25 90 cc R 60 cc L 90/850cc R 60/850cc L 02/14/25 60 cc R 90 cc L 150/850 B 02/23/25 100 cc B 250/850 B documented in this encounter Miscellaneous Notes * Addendum Note - Kellen Cespedes RN - 02/23/2025 9:45 AM CDTAddended by: KELLEN CESPEDES on: 02/23/2025 10:28 AM Modules accepted: Orders documented in this encounter Plan of Treatment Not on file documented as of this encounter Visit Diagnoses Diagnosis S/P breast reconstruction- Primary Breast replaced by other means documented in this encounter Orders Medications Ordered That Bandar ht Not Have Been Administered Count Last Ordered Date First Ordered Date sodium chloride 0.9% solution 200 mL 1 02/10 documented in this encounter Care Teams Application Software Engineer Relationship Specialty Start Date End Date Kimani Coleman MD [address] [address] PCP - General 07/31/17 documented as of this encounter
[2025-02-24 08:33] LABS: Hematocrit 43.6 % (37.0-47.0); Hemoglobin 14.6 g/dL (12.0-15.0); Mean Corpuscular HGB Conc 33.5 g/dl (32-36); Mean Corpuscular Hemoglobin 30.5 pg (26-34); Mean Corpuscular Volume 91.0 fl (80-100); Platelet Count Result 306 k/mm3 (150-375); Red Blood Count 4.79 M/mm3 (4.2-5.4); White Blood Count 5.8 K/mm3 (4.5-10.0)
== END 2025-02-24 08:10 | disposition home or self-care (01) ==
PROVIDERS: PCP Family Medicine; Visit Provider Obstetrics & Gynecology
DX: C50.911 Malignant neoplasm of unspecified site of right female breast (principal)
CPT/HCPCS: 36415; 85027; 86850; 86900; 86901

== ENCOUNTER 2025-03-02 03:18 | Day surgery (SDC) | payer OTHER, BC, SELFPAY ==
--- OUTSIDE RECORDS SUMMARY | 2004-12-03 19:00 | XMS_ITS | Continuity of Care Document ---
Author Organization [facility] [place] [address] [place] [address] [place] [address] Phone Care Team Providers Care [employer] Photographs Detailer Name Role Phone [facility] Unavailable Unavail able Nova Newman Unavailable Unavailable Advance Directives Directive Yes / No Effective Date File Name No Information Encounters Encounter Description Practice Location Reason(s) For Visit Diagnoses Date Provider Providers Copied on Encounter [facility], [address], [place], [place], [id number], [place] tel:[phone] SEC [facility] No Information 5-200 5 [facility] [address], [address], [place], [place], [id number] , [place]. tel:[phone] Consulting Provider: Nova Newman, [address] [place], [address]. tel:[phone] Family History Family Member Type Diagnosis Age At Onset No Information Payers Payer name Insurance type Covered libertarian ID Authoriza tion(s) No Information Social History Type Description Quantity Date Captured Comments Sex Female Smoking Status No Information Chief Complaint And Reason For Visit No Information Reason For Referral Reason For Referral No Information History Of Present Illness Encounter Date Complaint History Of Prese nt Illness No Information Functional Status Date Functional Assessmen t No Information Instructions Date Instruction Additional Infor mation No Information Assessments Type Assessment Date No Information Patient Care Teams Name Effective Dates (start - stop) Status Members No Information
--- NOTE | 2025-02-20 18:14 | SUR.PREOP ---
Report to the Outpatient Waiting Room, entrance under the green pavilion located off [facility], at time ____06___ on date ___03/02/25____. Planned Procedure Time: ____729____.? Time changes happen often and if your time is changed the preop area will call you the afternoon before. - You and your visitor will be asked to self-screen and do not enter if you have any COVID symptoms. Please call surgeon if you need to reschedule. - A mask is optional within the hospital at this time. Patients may have clear liquids (water, carbonated beverages, clear teas, apple juice) until 3 hours prior to surgery with a maximum of 20 ounces. - NO CLEAR LIQUIDS AFTER 0430 - No food from midnight until time of surgery and no smoking, or chewing tobacco (or any form of nicotine). No chewing gum, candy or mints. - Infants may have breast milk until 4 hours before surgery, infant formula 6 hours prior to surgery. - Children will be allowed to drink immediately following surgery.? If applicable, please bring a bottle or sippy cup to assist with drinking. Juice, water, soda, and popsicles are readily available.? For infants on formula, please bring formula the day of surgery.? Pacifiers are allowed. Take only the following medications with a SIP of water on the morning of surgery: XANAX, WELLBUTRIN, BUSPIRONE DO NOT STOP ANY OF YOUR OTHER PRESCRIPTION MEDICATIONS PRIOR TO SURGERY EXCEPT THE FOLLOWING Hold all vitamins and supplements for 3 days per anesthesiologist. Medications to discontinue per physician N/A Date to take last dose Please no make-up, nail albanian, hairspray, perfume, deodorant, or body powder the day of surgery.? No jewelry (including any body piercings) or valuables the day of surgery, leave them at home.? Please take a shower or bath the night before, or the morning of, surgery with an antibacterial soap.? Wear comfortable, loose fitting clothing.? Children are encouraged to wear pajamas. - Jewelry must be removed prior to entering the operating room.? Rings and piercings that are not removed may be cut off. - The hospital will not accept responsibility for valuables.? - Please leave all valuables, including medications, at home the day of surgery. If you are going home after surgery, a licensed race car driver must drive you home.? - NO public transportation without another adult if you receive anesthesia. - We recommend that an adult stay with you for 24 hours following discharge. - We also recommend that you do not drive, make important decision, drink alcoholic beverages, or take any drugs that were not prescribed by your health care provider for at least 24 hours after your discharge time. For Pediatric surgeries, we recommend two adults accompany the child home. Follow any additional instructions given to you from your surgeon. Telephone instructions given to ____AIME HERNANDEZ and asked if any additional questions and then verbalized understanding. Patient advised to call surgeon office or pre surgery nurse liaison [phone] if any additional questions.
[2025-02-20 18:28] VITALS: BMI 31.0
--- NOTE | 2025-03-01 08:54 | PM.IMHP ---
H&P: HPI History of Present Illness Date/Time: 03/01/25 08:54 45-year-old female presents for bilateral salpingo. Patient recently diagnosed with breast cancer and oncologist recommended BSO. Also recently had IUD removed. Chief Complaint: Breast cancer Review of Systems Review of Systems: All systems reviewed & are unremarkable except as noted in HPI and below PMFSH Past Medical History Medical History Encounter for IUD removal Left breast mass Breast asymmetry Elevated ferritin Low TSH level (08/01/24) TSH low at 0.052 with free T4 at 0.89 and T3 total at 1.13 Thyroid peroxidase antibody level 1 on 08/01/2024. Abnormal serum iron level (08/01/24) iron 141 with 53% saturation and ferritin 196 with hemoglobin 15.3 on 08/01/2024. UTI (urinary tract infection) Mixed hyperlipidemia cholesterol 203, triglycerides 154, HDL 48, LDL 128 with ratio 4.2 on 05/30/2022. Cholesterol 215, triglycerides 163, HDL 47, LDL 137 on 08/01/2024. Hirsutism Screening mammogram, encounter for Normal mammogram 08/24/2023. Influenza-like symptoms Acute non-recurrent maxillary sinusitis Chronic pain of right knee BMI 35.0-35.9,adult Obesity (BMI 30-39.9) Cordis all normal at 19.1 on 08/01/2024. Acute bilateral ankle pain (10/15/22) acute bilateral ankle pain after fall 10/15/2022. Acute bilateral knee pain (10/15/22) bilateral knee pain after fall 10/15/2022. COVID-19 (07/13/22) 2nd episode Fibrocystic breast changes of both breasts (~2021) MRI of the breast on 06/03/2022 reveal benign fibrocystic changes with recommendation for annual mammograms. Nocturnal sleep-related eating disorder Pharyngitis (03/16/22) BMI 34.0-34.9,adult Obesity (BMI 30.0-34.9) Encounter for IUD removal 01/20/20 Mirena removal/reinsertion Encounter for IUD insertion 03/06/15 Mirena insertion 01/20/20 Mirena removal/reinsertion Abnormal Pap smear of cervix 07/16/2018 Ascus -hpv Schwannoma of nerve of lower extremity left foot Sleep disturbances Home sleep study 12/02/2021 inconclusive with AHI 3.1. Schedule split night study. COVID-19 (11/27/21) monoclonal antibody infusion. Chronic depression BMI 32.0-32.9,adult Right elbow pain (03/08/21) Dermatofibroma multiple dermatofibroma Hypersomnia BMI 31.0-31.9,adult Cough Acute bronchitis COVID test negative on 08/22/21 . Chest x-ray is normal 08/22/2021 Abscess of right foot Tobacco use 1 pack per week , switched to vaping nicotine Benign schwannoma Left foot. Callus of foot Cellulitis of right foot Surgical History Surgical History History of gynecological procedure (12/06/24) mirena iud removal H/O knee surgery 12/2023 right knee loose body fragment removed History of orthopedic surgery 03/13/16 left foot biopsy History of colposcopy with cervical biopsy 03/09/01 LGSIL, mild dysplasia History of right knee surgery 11/10/00 History of left knee surgery 2012, 02/22/14 left knee Family History Family History Grandparent Diabetes mellitus Family history of malignant neoplasm paternal grandmother--urinary bladder Family history of malignant neoplasm of breast paternal grandmother Father Hypertension Mother Patient's mother is in good health Sibling Patient's brother is in good health Social History Social History Social History: The patient lives in [place] with her 10-year-old daughter. She works at the [employer] in [place]. Smokes about 5 cigarettes a day and has for 20 years. Consumes 2 alcoholic beverages a week. No illicit substance use. She designates her brother Miguel Flores as her surrogate decision maker and she wishes to be a full code. Smoking packs per day: 0.2 Smoking cigarettes per day: 4.0 Years smoked: 20 Smoking pack-years: 4.00 Smoking status: Current every day smoker Tobacco type: e-cigarettes/vaping Alcohol intake: current Drinks per week: 5 Substance use: never Substance use type: does not use Do You Feel Safe in your Home?: Yes Lack of Transportation: No Lack of Food: Never True Current Housing: Decline to Answer Concerned About Future Housing: Decline to Answer Difficulty Paying Gas/Electric Bills: Decline to Answer Difficulty Paying for Meds: Decline to Answer Currently Unemployed: Decline to Answer Education: Decline to Answer Difficulty w/ Childcare or Family Care: Decline to Answer Living arrangements: with family Occupation/Education: occupation Gender identity (if verbalized by the patient): Female Sexual Orientation (if Verbalized by the Patient): Straight or Heterosexual Spiritual care concerns: No Meds Home Medications and Allergies Home Medications ?Medication ?Instructions ?Recorded ?Confirmed ?Type bupropion HCl 300 mg 24 hr tablet, 300 mg PO QAM #30 tabs 05/03/24 02/20/25 Rx extended release (Wellbutrin XL) alprazolam 0.25 mg tablet (Xanax) 0.25 mg PO TID PRN anxiety #90 tabs 11/15/24 02/20/25 Rx buspirone 5 mg tablet 5 mg PO BID #60 tabs 12/13/24 02/20/25 Rx eszopiclone 2 mg tablet (Lunesta) 1 - 2 mg (0.5 - 1 x 2 mg) PO QHS 12/28/24 02/20/25 Rx PRN insomnia #30 tabs Allergies Allergy/AdvReac Type Severity Reaction Status Date / Time amoxicillin (From Augmentin) AdvReac Mild Vomiting Verified 02/20/25 18:01 clavulanic acid (From AdvReac Mild Vomiting Verified 02/20/25 18:01 Augmentin) Exam Const: General: cooperative and healthy appearing Resp: Effort & Inspection: normal respiratory effort Auscultation: clear to auscultation bilaterally Cardio: Rate: regular rate Rhythm: regular rhythm GI: Inspection: normal to inspection Auscultation: normal bowel sounds : External Female Exam: normal external appearance Speculum Exam - Vagina: normal appearance of the vagina Speculum Exam - Cervix: normal appearance of the cervix Bimanual exam- vagina & uterus: normal bimanual exam Bimanual Exam- Adnexa, other: normal adnexae Assessment and Plan Assessment and plan (1) Invasive ductal carcinoma of left breast: Code(s): C50.912 - Malignant neoplasm of unspecified site of left female breast Status: Acute Assessment and Plan: Proceed work robotic assisted bilateral salpingo oophorectomy.
[2025-03-02] VITALS (9 sets, daily range): BP systolic 89–121; BP diastolic 50–82; PULSE 66–93; RESP 10–18; TEMP 36.1–36.5; O2SAT 92–100
--- OUTSIDE RECORDS SUMMARY | 2025-03-02 03:23 | XMS_ITS | Clinical Summary ---
Author Organization [facility] Address [address] [place] [address] Care Team Providers Care Distillery Miller Helper Name Role Phone Kimani Coleman MD Primary Care Provider [phone] Allergies Active Allergy Reactions Criticality Noted Date Comments Amoxicillin-Pot Clavulanate Vomiting Medium 01/07/20 11 Medications ALPRAZolam (XANAX) 0.25 mg tabletIndicati ons:anxiety Take 1 tablet (0.25 mg total) by mouth 3 (three) times a day as needed for anxiety 3 Active busPIRone (BUSPAR) 5 mg tabletIndicati ons:Generalize d Anxiety Disorder Take 1 tablet (5 mg total) by mouth 3 (three) times a day as needed (anxiety) 5 Active eszopiclone (LUNESTA) 2 mg tablet TAKE 1/2 TO 1 TABLET AT BEDTIME NEEDED FOR INSOMNIA 5 Active cyclobenzaprin e (FLEXERIL) 10 mg tabletIndicati ons:Post Surgical Pain Take one tablet up to 3 times per day as needed for muscle spasms. 30 tablet 5 Active Additional Information Patient not taking.Reported on 02/07/2025 docusate sodium (COLACE) 100 mg capsuleIndicat ions:constipat ion Take 1 capsule (100 mg total) by mouth 3 (three) times a day Start 2 days preop and continue 3 days post op then continue as needed 30 capsule 5 Active Additional Information Patient not taking.Reported on 02/07/2025 anastrozole (ARIMIDEX) 1 mg tablet Take 1 tablet (1 mg total) by mouth daily starting 02/10/25. 30 tablet 2 5 05/02/20 25 Active buPROPion XL (WELLBUTRIN XL) 300 mg 24 hr tablet Take 1 tablet (300 mg total) by mouth every morning 5 Active buPROPion XL (WELLBUTRIN XL) 150 mg 24 hr tabletIndicati ons:Anxiety with Depression Take 2 tablets (300 mg total) by mouth every morning 3 02/02/20 Discontin ued(Alter susanna therapy) Hospital, Clinic, or Other Facility Administered Medication Ordered Dose Route Frequency Start Date End Date Status sodium chloride 0.9% solution 150 mLIndications:S/P breast reconstruction 150 mL IV Once 02/14/2025 02/15/2025 Ended sodium chloride 0.9% solution 200 mLIndications:S/P breast reconstruction 200 mL cath Once 02/23/2025 02/24/2025 Ended Active Problems Problem Noted Date Diagnosed [...] Description 02/23/2025 9:45 AM CDT Office Visit [facility] Medicine Surgery [address] [place] [phone] Katerina Catalan MD S/P breast reconstruction (Primary Dx) 02/23/2025 Telephone [facility] Surgery [address] [place] [phone] Pippa Boyer RMA 02/14/2025 1:00 PM CDT Office Visit [facility] Surgery [address] [place] [phone] Katerina Catalan MD S/P breast reconstruction (Primary Dx) 02/07/2025 10:00 AM CDT Office Visit [facility] Surgery [address] [place] [address] 6th [place] [address] [place] [address] Lorne Mobley MD Seroma of breast (Primary Dx) 02/07/2025 9:00 AM CDT Office Visit [facility] Surgery [address] [place] [address] 8 [place] [address] Elizabeth Mills MD 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, estrogen receptor positive (HCC) (Primary Dx) 02/06/2025 Telephone [facility] Surgery [address] [place] [address] 8 [place] [address] Josie Glaser RN 02/06/2025 Telephone [facility] Surgery [address] [place] [address] 8 [place] [address] Josie Glaser RN 2025 2:00 PM CDT Infusion [facility] at [address] [place] [address] Malignant neoplasm of overlapping sites of left breast in female, estrogen receptor positive (HCC) (Primary Dx) 2025 1:20 PM CDT Office Visit [facility] [address] [place] [address] [address] [place] [address] Tara Salmeron NP Malignant neoplasm of overlapping sites of left breast in female, estrogen receptor positive (HCC) (Primary Dx) 2025 1:00 PM CDT Lab [facility] at [address] [address] Malignant neoplasm of overlapping sites of left breast in female, estrogen receptor positive (HCC) 2025 Orders Only [facility] Medicine [facility] [address] [place] [address] [place] [phone] Tara Salmeron NP 01/31/2025 Orders Only [facility] Medicine [facility] [address] [place] [phone] Mali Samuel RN 01/27/2025 Orders Only [facility] Physicians [facility] Oncology [address] [place] [phone] Andrea Hernandez DO 01/26/2025 2:30 PM CDT Office Visit [facility] Surgery [address] [place] [address] [address] [place] [phone] S/P breast reconstruction (Primary Dx) 01/19/2025 10:00 AM CDT Office Visit [facility] Surgery [address] [place] [address] [address] [place] [phone] S/P breast reconstruction (Primary Dx) 01/18/2025 Results Follow-Up [facility] Surgery [address] [facility] [address] [place] [address] Elizabeth Mills MD Surgical pathology 01/11/2025 10:30 AM CDT - 01/11/2025 1:30 PM CDT Surgery [facility] Operating Room [address] A[address] AriasDunreith[place] [address] Katerina Catalan MD 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 01/11/2025 10:06 AM CDT Anesthesia Event [facility] Operating Room [address] Aleyda AriasDunreithsommer GEIGERCALVIN [place] [address] Yoandy Khanna MD Wilkinson, Christina A., NP 01/11/2025 8:19 AM CDT - 01/11/2025 4:17 PM CDT Hospital Encounter [facility] Operating Room [address] [place] [address] Katerina Catalan MD Malignant neoplasm of overlapping sites of left breast in female, estrogen receptor positive (HCC) Discharge Disposition: Discharge to home or self care 01/10/2025 Orders Only [facility] Medicine Surgery [address] [place] [address] 8 [place] [address] Elizabeth Mills MD 01/06/2025 9:30 AM CDT Infusion [facility] at [address] [place] [phone] Malignant neoplasm of overlapping sites of left breast in female, estrogen receptor positive (HCC) (Primary Dx) 01/05/2025 8:00 AM CDT Office Visit [facility] Surgery [address] [place] [address] Katerina Catalan MD Malignant neoplasm of overlapping sites of left breast in female, estrogen receptor positive (HCC) 01/05/2025 Orders Only [facility] Oncology [address] [place] [address] [address] [place] [phone] Andrea Hernandez DO 01/02/2025 Telephone [facility] Surgery [address] [place] [phone] Elizabeth Mills MD 12/20/2024 Results Follow-Up [facility] Surgery [address] [place] [phone] Elizabeth Mills MD Surgical pathology 12/19/2024 2:00 PM CDT - 12/19/2024 11:59 PM CDT Hospital Encounter [facility] ([facility]) [address] [place] [phone] Abnormal mammogram Discharge Disposition: Discharge to home or self care 12/19/2024 1:20 PM CDT - 12/19/2024 11:59 PM CDT Hospital Encounter [facility] [address] [place] [address] Elizabeth Mills MD Abnormal mammogram Discharge Disposition: Discharge to home or self care 12/16/2024 8:30 AM CDT - 12/16/2024 11:59 PM CDT Hospital Encounter [facility] - Breast Imaging [address] [place] [address] 8 [place] [address] Malignant neoplasm of upper-outer quadrant of left breast in female, estrogen receptor positive (HCC) Discharge Disposition: Discharge to home or self care 12/16/2024 8:17 AM CDT - 12/16/2024 11:59 PM CDT Hospital Encounter [facility] Breast Imaging [address] [place] [address] Malignant neoplasm of upper-outer quadrant of left breast in female, estrogen receptor positive (HCC) Discharge Disposition: Discharge to home or self care 12/16/2024 8:00 AM CDT Office Visit [facility] Medicine Surgery [address] [place] [phone] Elizabeth Mills MD Malignant neoplasm of overlapping sites of left breast in female, estrogen receptor positive (HCC) (Primary Dx); Malignant neoplasm of female breast, unspecified estrogen receptor status, unspecified laterality, unspecified site of breast (HCC) 12/16/2024 Documentation [facility] Medicine [facility] [address] [place] [phone] Andrea Hernandez DO 12/15/2024 Results Follow-Up [facility] Medicine Surgery [address] [place] [phone] Elizabeth Mills MD MRI Breast Bilateral W WO Contrast 12/14/2024 2:36 PM CDT - 12/14/2024 11:59 PM CDT Hospital Encounter [facility] [address] [place] [address] Malignant neoplasm of upper-outer quadrant of left breast in female, estrogen receptor positive (HCC) Discharge Disposition: Discharge to home or self care 12/12/2024 Telephone [facility] Surgery [facility] [address] [phone] Elizabeth Mills MD 12/09/2024 1:[address] [facility] [address] [place] [address] Malignant neoplasm of upper-outer quadrant of left breast in female, estrogen receptor positive (HCC) (Primary Dx) 12/09/2024 Telephone [facility] [address] [place] [address] [address] [place] [address] Andrea Hernandez, 12/09/2024 Orders Only [facility] [address] [place] [address] [place] [phone] Andrea Hernandez, 12/08/2024 [facility] [address] [place] [phone] Elizabeth Mills MD Malignant neoplasm of upper-outer quadrant of left breast in female, estrogen receptor positive (HCC) (Primary Dx) 12/07/2024 Orders Only [facility] Medicine Surgery [address] [place] [phone] Elizabeth Mills MD Malignant neoplasm of upper-outer quadrant of left breast in female, estrogen receptor positive (HCC) (Primary Dx) 12/06/2024 8:21 PM CDT - 12/06/2024 11:59 PM CDT Hospital Encounter [facility] [address] [place] [phone] Discharge Disposition: Discharge to home or self care 12/02/2024 Orders Only [facility] Medicine Pathology Outreach [address] [place] [address] Andrea Hernandez DO Malignant neoplasm of female breast, unspecified estrogen receptor status, unspecified laterality, unspecified site of breast (HCC) 12/01/2024 3:30 PM CDT Office Visit [facility] Medicine [facility] [address] [facility] [address] [place] [address] Andrea Hernandez, DO Malignant neoplasm of upper-outer quadrant of left breast in female, estrogen receptor positive (HCC) (Primary Dx); Malignant neoplasm of female breast, unspecified estrogen receptor status, unspecified laterality, unspecified site of breast (HCC) from Last 3 Months Immunizations Immunization Administration [...] KNEE ARTHROSCOPY Left x3; last one in 2015 BREAST BIOPSY 12/19/2024 Right BREAST BIOPSY 10/11/2024 [...] on file 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 Gender Identity Not on file Sexual Orientation Not on file 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 file Not on file [...] 3-dose SCDM series) 01/31/2007 Covid-19 Vaccine ( - season) 2024 05/10/2021, 08/15/2020, 07/25/2020 Influenza Vaccine (#1) 2025 Medical Devices Implanted Type Area Manager Reading Device Identifier Shelf Expiration Date Model / Serial / Lot [employer] Marker Image Hydromark Plus T5 Titanium 15ga Radiological Implant Sterile 4009-08-27-T5 - [id number] Implanted:Qty: 1 on 12/19/2024 by Subhash Lagunas MD at [facility] Right: Breast [employer] [id number] 06/30/2025 4010 5-T5 / / [id number] [employer] Graft Tissue Dermis Accelular Cortiva 0.8 1.2mm 62z26um Sterile [id number] - [id number] Implanted:Qty: 1 on 01/11/[address] [facility] Left: Breast [employer] 08/12/2027 [id number] / [id number] / [id number] [employer] [facility] Breast High Profile Round Smooth Artoura Plus 850cc Silicone [id number] - [id number] Implanted:Qty: 1 on 01/11/[address] [facility] Left: Breast [employer] 12/17/2028 [id number] / [id number] [employer] Breast High Profile Round Smooth Artoura Plus 850cc Silicone [id number] - [id number] Implanted:Qty: 1 on 01/11/[address] [facility] Right: Breast [employer] 12/17/2028 [id number] / [id number] Hilario Madi [employer] P4hb Synthetic [place] Galaflex Lite 17cm Soft Tissue Repair [id number] - [id number] Implanted:Qty: 1 on 01/11/[address] [facility] Right: Breast Hilario [place] 02/09/2026 [id number] / / [id number] [employer] [place] [employer] P4hb Synthetic [place] Galaflex Lite 17cm Soft Tissue Repair [id number] - [id number] Implanted:Qty: 1 on 01/11/[address] [facility] Left: Breast H[employer] [place] 02/09/2026 [id number] / / [id number] [employer] Graft Tissue Dermis Accelular Cortiva 0.8 1.2mm [id number] Sterile [id number] - [id number] Implanted:Qty: 1 on 01/11/[address] [facility] Left: Breast [employer] 08/12/2027 [id number] / [id number] / [id number] Procedures Procedure Name Priority Date/Time Associated Diagnosis [...] breast in female, estrogen receptor positive (HCC) MN AN PROCEDURE PLACEHOLDER Routine 01/11/2025 10:26 AM CDT MN AN ELECTIVE SUPRAGLOTTIC AIRWAY Routine 01/11/2025 10:26 [...] and prevenaJAM - blue dye 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 01/11/2025 10:11 AM CDT Malignant [...] was last reviewed 2021. Testing performed by: [address] [address] Blood 2025 1:00 PM CDT 2025 1:01 PM CDT us Andrea Hernandez DO LAB BLOOD ORDERABLES Final R esult [facility] [address] [facility] Department [place] [address] * Differential, auto (2025 1:00 PM CDT) Pathologist [facility] Neutrophil abs 4.54 1.50 - 6.50 K/cumm Comment:Testing performed by : [address] [address] Imm gran abs 0.02 0.00 - 0.10 K/cumm [facility] Comment:Testing performed by : [address] [address] Lymphocyte abs 2.15 0.80 - 3.30 K/cumm [facility] Comment:Testing performed by : [address] [address] Monocyte abs 0.37 0.20 - 0.80 K/cumm [facility] Comment:Testing performed by : [address], [place]., [address] Eosinophil abs 0.25 0.00 - 0.50 K/cumm [facility] Comment:Testing performed by : [address], [place]., [address] Basophil abs 0.04 0.00 - 0.10 K/cumm [facility] Comment:Testing performed by : [address] [address] Neutrophil pct 61.6 % [facility] Comment: Interpretive Data Percent cell count reference ranges are not reported, since discordance with absolute values may lead to misinterpretation of CBC data. Current Interpretive Data was last revised on 2017. Testing performed by: [address] [address] Imm gran pct 0.3 % [facility] Comment: Interpretive Data Percent cell count reference ranges are not reported, since discordance with absolute values may lead to misinterpretation of CBC data. Current Interpretive Data was last revised on 2017. Testing performed by: [address] [address] Lymphocyte pct 29.2 % [facility] Comment: Interpretive Data Percent cell count reference ranges are not reported, since discordance with absolute values may lead to misinterpretation of CBC data. Current Interpretive Data was last revised on 2017. Testing performed by: [address] [address] Monocyte pct 5.0 % [facility] Comment: Interpretive Data Percent cell count reference ranges are not reported, since discordance with absolute values may lead to misinterpretation of CBC data. Current Interpretive Data was last revised on 2017. Testing performed by: [address] [address] Eosinophil pct 3.4 % [facility] Comment: Interpretive Data Percent cell count reference ranges are not reported, since discordance with absolute values may lead to misinterpretation of CBC data. Current Interpretive Data was last revised on 2017. Testing performed by: [address] [address] Basophil pct 0.5 % [facility] Comment: Interpretive Data Percent cell count reference ranges are not reported, since discordance with absolute values may lead to misinterpretation of CBC data. Current Interpretive Data was last revised on 2017. Testing performed by: [address] [address] Blood 2025 1:00 PM CDT 2025 1:02 PM CDT us Andrea Hernandez DO LAB BLOOD ORDERABLES Final R esult [facility] Department [place] [address] * CBC with auto differential (2025 1:00 PM CDT) WBC 7.37 3.80 - 9.90 K/cumm Comment:Testing performed by : [address] [address] Hgb 13.1 11.9 - 15.5 g/dL [facility] Comment:Testing performed by : [address] [address] Hct 37.8 35.6 - 45.5 % [facility] Comment:Testing performed by : [address] [address] Plt 337 150 - 400 K/cumm [facility] Comment:Testing performed by : [address] [address] MPV 9.6 9.1 - 12.3 fL [facility] Comment:Testing performed by : [address] [address] RBC 4.32 3.90 - 5.20 M/cumm [facility] Comment:Testing performed by : [address] [address] MCV 87.5 81.3 - 96.4 fL [facility] Comment:Testing performed by : [address] [address] MCH 30.3 27.1 - 33.3 pg [facility] Comment:Testing performed by : [address] [address] MCHC 34.7 32.3 - 35.7 g/dL [facility] Comment:Testing performed by : [address] [address] RDW CV 12.3 11.1 - 14.9 % [facility] Comment:Testing performed by : [address] [address] RDW SD 39.5 35.7 - 48.1 fL [facility] Comment:Testing performed by : [address] [address] NRBC abs 0.00 0.00 - 0.01 K/cumm [facility] Comment:Testing performed by : [address] [address] ANC Prelim 4.54 1.50 - 6.50 K/cumm [facility] Comment: Interpretive Data The rapid ANC is a preliminary automated count and may vary from the final ANC (Neut Abs) reported in the WBC differential that follows. Current interpretive data was last revised 2024. Testing performed by: [address] [address] Blood 2025 1:00 PM CDT 2025 1:02 PM CDT us Andrea Hernandez DO LAB BLOOD ORDERABLES Final R esult [facility] [address] [facility] Department [place] [address] * (ABNORMAL) Comprehensive metabolic panel (2025 1:00 PM CDT) Sodium 142 135 - 145 mmol/L Comment:Testing performed by : [address] [address] Potassium, pl 3.8 3.3 - 4.9 mmol/L [facility] Comment:Testing performed by : [address], [place]., [address] Chloride 105 97 - 110 mmol/L [facility] Comment:Testing performed by : [address], [place]., [address] CO2 25 22 - 32 mmol/L [facility] Comment:Testing performed by : [address], [place]., [address] Anion gap 12 2 - 15 mmol/L [facility] Comment:Testing performed by : [address], [place]., [address] BUN 12 6 - 25 mg/dL [facility] Comment:Testing performed by : [address], [place]., [address] Creatinine 0.80 0.60 - 1.10 mg/dL [facility] Comment:Testing performed by : [address] [address] Glucose 129 70 - 199 mg/dL [facility] Comment: Interpretive Data Fasting glucose >/= 126 [...] classification and Diagnosis of Diabetes Diabetes Care 2021; 46: S19-S40. Current interpretive data was last revised 2022. Testing performed by: [address] [address] Calcium 9.0 8.5 - 10.3 mg/dL [facility] Comment:Testing performed by : [address] [address] Bilirubin, total 0.4 0.1 - 1.2 mg/dL [facility] Comment:Testing performed by : [address] [address] Protein, pl 6.5 6.5 - 8.5 g/dL [facility] Comment:Testing performed by : [address] [address] Albumin 3.9 3.5 - 5.0 g/dL [facility] Comment:Testing performed by : [address] [address] Alk phos 130 40 - 130 Units/L [facility] Comment:Testing performed by : [address] [address] ALT 61(H) 7 - 45 Units/L [facility] Comment:Testing performed by : [address] [address] AST 28 10 - 45 Units/L [facility] Comment:Testing performed by : [address] [address] Blood 2025 1:00 PM CDT 2025 1:01 PM CDT Andrea Hernandez DO LAB BLOOD ORDERABLES Final R esult [facility] [address] [facility] Department of Laboratories [place], [place] [id number] * Surgical pathology (01/11/2025 11:07 AM CDT) [...] breast) 01/11/2025 11:44 AM CDT Narrative PATHOLOGY [facility] - 01/17/2025 5:23 PM CDT EPIC results best viewed via link to PDF [facility] Tiffani Anaya Laboratory of Surgical Pathology [facility] [place] [address] Note to Patients: This report may contain [...] Gender: F : 1980 (Age: 44) Address: [address] [place] [address] Hospital #: [id number] Taken:01/11/2025 Received:01/11/2025 Reported: 01/17/2025 Patient Type: [facility] EP SAME Client [facility] Service: Surgery Location: Physician(s): Monica Olivares M.D. Diagnosis: A. Breast, left, mastectomy - Invasive ductal carcinoma - Multifocal, with foci measuring 22 mm, 18 mm, 10 mm, and 2 mm - Histologic grade = 2/3 (score: tub 3 + nuc 2 + mc 1 = 12/19) by ESBR criteria - Negative for lymphovascular [...] + nuc 2 + mc 1 = 6/) by ESBR criteria - Negative for lymphovascular [...] of malignancy in two lymph nodes (0/2) [facility]/01/16/2025 14:41 By this signature, I attest [...] margin (slice 11) A8 Nipple bisected A9 Fireproof Door Assembler section of inner upper quadrant (slice 4) A10 [employer]proof Door Assembler section of inner lower quadrant (slice 3) A11 [employer] Door Assembler section of outer upper quadrant (slice 11) A12 Fireproof Door Assembler section of outer lower quadrant (slice 9) [...] Lesion 2 (slice 10) C5 Nipple C6 Fire[employer] Door Assembler section of lower outer quadrant (slice 10) C7 Fireproof Door Assembler sectionof upper inner quadrant (slice 2) C8 Fireproof Door Assembler section of lower inner quadrant (slice 3) C9 Lesion 2 (slice 8) D. Labeled right sentinel lymph node is a 4.5 x 3.0 x 1.5 cm yellow-moraes fibrofatty soft tissue fragment. Two possible lymph nodes are identified measuring 1.2 and 2.5 cm. D1: Smaller lymph node bisected D2: Larger lymph node bisected Jar 1. [facility]01/12/2025 16:15 Gross Resident:Lucila Jalloh M.D. CANCER CASE SUMMARY FOR INVASIVE CARCINOMA OF THE BREAST Procedure: Total mastectomy (including nipple-sparing and skin-sparing) Lymph node sampling: [place] lymph node(s) Specimen laterality: Left Tumor site invasive carcinoma: Upper inner quadrant Central Histologic type of invasive carcinoma: Invasive ductal carcinoma (no special type or not otherwise specified) Tumor size: Greatest dimension: 22mm Histologic grade (Scott Histologic Score): Tubular differentiation: Score 3 Nuclear [...] nodes present All lymph nodes are negative [place] node evaluation: H&E, multiple levels Response to [...] Breast Biomarker Testing performed on Previous Case: [id number] Estrogen Receptor (ER): Positive Edmond score 6/8 [...] (including nipple-sparing and skin-sparing) Lymph node sampling: [place] lymph node(s) Specimen laterality: Right Tumor site invasive carcinoma: 9 o c lock Distance from nipple (centimeters): 9cm Histologic type of invasive carcinoma: Invasive ductal carcinoma (no special type or not otherwise specified) Tumor size: Greatest dimension: 12mm Histologic grade (Scott Histologic Score): Tubular differentiation: Score 3 Nuclear [...] nodes present All lymph nodes are negative [place] node evaluation: H&E, multiple levels Response to [...] Breast Biomarker Testing performed on Previous Case: [id number] Estrogen Receptor (ER): Positive Edmond score 7/8 [...] interpretation for this case was performed at [facility], Department of Surgical Pathology, [address] [facility], [place] [id number], [place] [address] CLIA # [id number] The performance characteristics of some immunohistochemical stains, fluorescence in-situ hybridization tests and immunophenotyping by flow cytometry cited in this report (if any) were determined by the Surgical Pathology and Flow Cytometry Departments at [facility] as part of an ongoing quality control coordinator program and in compliance with federally mandated [...] Surgical Pathology and Flow Cytometry Departments of [facility]. It has not been cleared or approved by the U. S. Food and Drug Administration. IMAGES AND SCANNED DOCUMENTS, IF INCLUDED, ONLY VIEWABLE IN PDF VERSION OF REPORT Katerina Catalan MD LAB PATHOLOGY ORDERABLES Fi nal Result PATHOLOGY [facility] [phone] * MN AN ELECTIVE SUPRAGLOTTIC AIRWAY, MN AN PROCEDURE PLACEHOLDER (01/11/2025 10:26 AM CDT) Narrative Mayi Perez CRNA - 01/11/2025 10:26 AM CDT Mayi Perez CRNA 01/11/2025 10:26 AM Airway Patient location: OR Urgency: elective Indications for airway management: anesthesia Difficult airway: no Staff: Placed by: MONOTYPE CASTER: Mayi Perez CRNA Emergent airway documentation: Risks [...] Control Acceptable Urine 01/11/2025 8:51 AM CDT Popeye Luther MD POINT OF CARE TEST ORDERA BLES Final Result * POCT hCG, urine (01/11/2025 8:50 AM CDT) HCG, ur, POC Negative Negative Lot Number [id number] QC Backgroud Clear Acceptable QC Control Line Acceptable Urine 01/11/2025 8:50 AM CDT us Katerina Catalan MD POINT OF CARE TEST ORDERABL ES Final Result * Oncotype DX Breast Cancer Assay (01/09/2025 8:28 AM CDT) us Elizabeth Mills MD LAB BLOOD ORDERABLES Fi nal Result CARDFREE * Cole Post Clip Placement Right (12/19/2024 [...] + nuc 2 + mc 1 = 6/) by ESBR criteria Biomarkers will be reported [...] be discussed with the patient by Breast [facility] or referring provider staff and will [...] in expected position. The attending radiologist, Dr. Isable Connor M.D., was present throughout the entire procedure. Dr. Lagunas (diagnostic president consumer electronics company) also participated in this examination. Procedure Note [...] throughout the entire procedure. Dr. Lagunas (diagnostic president consumer electronics company) also participated in this examination. IMPRESSION: 1. [...] be discussed with the patient by [facility] or referring provider staff and will [...] throughout the entire procedure. Dr. Lagunas (diagnostic president consumer electronics company) also participated in this examination. us Elizabeth Mills MD IMG MAMMO PROCEDURES Ed ited Result - Final * Surgical pathology (12/19/2024 1:59 PM CDT) Tissue (Breast biopsy, needle core) 12/19/2024 1:59 PM CDT Comment:right breast 9:00 9 cm/fn, ultrasound biopsy, birads 5 Narrative PATHOLOGY [facility] - 12/20/2024 2:43 PM CDT EPIC results best viewed via link to PDF [facility] Tiffani Anaya Laboratory [place] [address] Note to Patients: This report may contain [...] Gender: F : 1980 (Age: 44) [address] [id number] [facility] #: [id number] Taken:12/19/2024 Received:12/19/2024 Reported: 12/20/2024 Patient Type: [facility] Ancillary Service: UNKNOWN Location: Physician(s): Monica Jones [...] = 2/3 with comedonecrosis - Cribriform pattern toa/12/20/2024 13:22 By this signature, I attest that [...] after collection. Total fixation time= 7.0 hours. elsw/12/19/2024 17:49 PA(s): Mayi Gibson By this signature, I attest that the above diagnosis is based upon my personal examination of the slides(and/or other material). Addenda/Procedures Addendum Ordered:12/21/2024Status:Signed OutAddendum Complete:12/21/2024y:Twilagurmeet Bolanos [facility] Signed Out:12/21/2024 Addendum Diagnosis BREAST BIOMARKER [...] Technical Notes Estrogen receptor (ER), progesterone receptor (MN), and HER2 were evaluated by immunohistochemistry (IHC) by morphometric analysis in routine formalin-fixed paraffin-embedded tissue using a proprietary polymer- based detection system and instrumentation by [employer] per rivet driver's recommendation. The IHC results for ER (antibody SP1) and MN (antibody 1E2) were quantified and interpreted (positive vs negative) using the Edmond score (total score range = 0 to 8; positive >2) (see: Mod Pathol 11:155, 1997; J Clin Oncol 17:1474, 1998; Mod Pathol 17:1545, 2004; Arch Pathol Lab Med 144:545, 2020). Pathway Her2 is a trademark of [employer] The IHC results for Pathway Her2 [...] a proprietary polymer-based detection system andinstrumentation by [employer] per rivet driver's recommendation. The index was determined by manual [...] ordered molecular analysis. Materials were forwarded to [facility] where the Oncotype DX test will be [...] Breast Cancer Assay test was performed by [address], [place] [address]. The performance characteristics of some immunohistochemical stains, fluorescence in-situ hybridization tests and immunophenotyping by flow cytometry cited in this report (if any) were determined by the Surgical Pathology and Flow Cytometry Departments at [facility] as part of an ongoing quality control coordinator program and in compliance with federally mandated [...] Surgical Pathology and Flow Cytometry Departments of [facility]. It has not been cleared or approved by the U. S. Food and Drug Administration. IMAGES AND SCANNED DOCUMENTS, IF INCLUDED, ONLY VIEWABLE IN PDF VERSION OF REPORT Elizabeth Mills MD LAB PATHOLOGY ORDERABLE S Final Result PATHOLOGY [facility] 3rd Floor [place], [place] [phone] * (ABNORMAL) US Breast Right Limited (12/16/2024 [...] and agrees with it. Electronically signed by: MD Edith Sherwood 12/16/2024 1:35 PM CDT EXAMINATION: RIGHT UNILATERAL [...] upper outer breast (H 23.4). An internal Jber-irena tissue biopsy marker noted. * 1.0 x [...] images may or may not represent the karuk source data set and thus may contain [...] OF OUTSIDE IMAGING FACILITY PERFORMING OUTSIDE IMAGING: [facility] and [facility] EXAM(S) REVIEWED: 1. BILATERAL SCREENING [...] OF OUTSIDE IMAGING FACILITY PERFORMING OUTSIDE IMAGING: [facility] EXAM(S) REVIEWED: 1. BILATERAL SCREENING MAMMOGRAM WITH [...] images may or may not represent the karuk source data set and thus may contain changes which may lower the sensitivity of the second opinion interpretation. Dictated by: Luis Sparks M.D. The radiology attending physician has personally reviewed this study, and had reviewed and/or edited this written report and agrees with it. Electronically signed by: Edna Johnson M.D. us Elizabeth Mills MD IMG MAMMO PROCEDURES Fi nal Result * Surgical pathology (12/02/2024 6:49 AM CDT) Tissue (Miscellaneous) 12/02/2024 6:49 AM CDT 12/02/2024 6:[address] [facility] PATHOLOGY [facility] - 12/15/2024 9:13 AM CDT EPIC results best viewed via link to PDF [facility] Pathology Consult Service [address], [place] [address] Note to Patients: This report may contain [...] SURGICAL PATHOLOGY REPORT * Consult Report * [facility] is providing an additional review of previously collected tissue. FINAL Patient Name: NAI HERNANDEZ Address: [address] [place] [address] Gender: F : 1980 (Age: 44) Hospital #: [id number] Patient Type: [facility] Location: UNKNOWN Taken: 12/02/2024 Received: 12/02/2024 Accessioned: 12/06/2024 Reported: 12/15/2024 Physician(s): Dr. Andrea Hernandez D.O. [facility] Department of Pathology [address] [address] P: [phone] F: [phone] Diagnosis: Consult material received from [place], [place] (OSC: [id number]; 11/10/2024). A. Breast, left, upper outer quadrant, core biopsy - Invasive ductal carcinoma - Greatest microscopic dimension = 7 mm - Histologic grade = 2/3 (tub 3 + nuc 2 + mc 1 = 12/19) by ESBR criteria - Biomarkers (slides are provided for review) - ER by IHC: positive, Edmond score 4+2=6/8 - MN by IHC: positive, Edmond score 4+3=7/8 - [...] + nuc 2 + mc 2 = 01/18) by ESBR criteria ud/12/07/2024 13:21 By this signature, I attest that the above diagnosis is based upon my personal examination of the slides(and/or other material indicated in the diagnosis). Femi Liz MD PhD Report Electronically Reviewed and Signed Out By Femi Liz MD PhD 12/15/2024 09:13:18 Microscopic Description and Comment: Unless gross-only is specified, the final diagnosis for each specimen is based on a microscopic examination of each tissue sample. Royal Muse M.D. History: The patient is a 44-year-old woman with left breast cancer. Materials Received: Received for review are ten slides labeled [id number], accompanied by a corresponding pathology report. The material originates from [place], [place]. Selected slide(s) may be digitally scanned for our files, and all materials are returned to the referring institution, along with a copy of our final report. Any testing required for diagnostic purposes was performed in the Department of Pathology and Immunology at [facility], [address] [place] [address] CLIA # [id number] The performance characteristics of the testing cited in this report (if any) were determined by the [facility] Department of Pathology and Immunology [facility], as part of an ongoing quality control coordinator program and in compliance with federally mandated [...] and the performance characteristics determined by the [facility], [facility] Department of Pathology and Immunology. It has not been cleared or approved by the U.S. Food and Drug Administration. Any test designated as LDT was developed and its performance characteristics determined by [facility]. It has not been cleared or approved by the FDA. This test is used for clinical purposes and should not be regarded as investigational or for research. Report images and/or scanned reports, if included, only viewable in PDF version of report. us Andrea Hernandez DO LAB PATHOLOGY ORDERABLES Fin al Result [facility] [address] [facility] [address] [place] [address] from Last [address] [address] [facility]1983 OPEN ACCESS [facility], [facility] HMO/PPO Address[address] [place] [phone] [place] [address] [facility] Advance Directives For more information, please contact: [phone] * Full Code (Latest Code Status on File) Date Activated Date Inactivated Comments 02/18/2023 3:50 PM 02/18/2023 8:57 PM * Full Code Date Activated Date Inactivated Comments 12/03/2022 9:31 AM 12/03/2022 2:46 PM Care Teams Distillery Miller Helper Relationship Specialty Start Date End Date Kimani Coleman MD [address] [address] PCP - General 07/31/17
--- OUTSIDE RECORDS SUMMARY | 2025-03-02 03:23 | XMS_ITS ---
Author Organization [facility] Address [address] [place] [address] Care Team Providers Care Bone Plant Supervisor Name Role Phone Kimani Coleman MD Primary Care Provider [phone] Active Problems Problem Noted Date Diagnosed Date [...]
--- OUTSIDE RECORDS SUMMARY | 2025-03-02 03:23 | XMS_ITS | Encounter Summary ---
Author Organization [facility] Address [address] [place] [address] Phone Care Team Providers Care Delivery Coordinator Name Role Phone Kimani Coleman MD Primary Care Provider [phone] Encounter Details Date Type Department Care Team (Late st Contact Info) Description 01/18/2025 Results Follow-Up 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
[2025-03-02] MEDS: ACETAMINOPHEN 500 MG TABLET 1000 MG PO (06:20)
[2025-03-02] MEDS: LACTATED RINGERS 1,000 ML 30 ML IV CONT ×2 (06:30→08:20)
[2025-03-02] MEDS: KETOROLAC 15 MG/ML VIAL (*BKC) IV PUSH (06:35)
[2025-03-02 06:50] LABS: BEDSIDEPREGUCG Negative (Negative)
--- NOTE | 2025-03-02 07:03 | P.PNAN_ITS ---
Anes - Initial Pre Proc Eval Procedure: Operation Date: 03/02/25 07:30 Proposed Procedures p Robotic Assisted Laparoscopic Bilateral Salpingo-Oophorectomy - Agusto Bob MD Date/Time: 03/02/25 07:03 Surgeon: Agusto Bob MD Pre Op Diagnosis: breast cancer Patient Data Age: 45 Gender: F Height: 1.75 m Weight: 96.7 kg Last Vital Signs Temp 36.1 C L 03/02/25 06:05 Pulse 93 03/02/25 06:05 Resp 18 03/02/25 06:05 BP 121/82 03/02/25 06:05 Pulse Ox 99 03/02/25 06:05 O2 Del Method Room Air 03/02/25 06:05 Allergies Allergy/AdvReac Type Severity Reaction Status Date / Time amoxicillin (From Augmentin) AdvReac Mild Vomiting Verified 03/02/25 06:41 clavulanic acid (From AdvReac Mild Vomiting Verified 03/02/25 06:41 Augmentin) Home Medications ?Medication ?Instructions ?Recorded ?Confirmed ?Type bupropion HCl 300 mg 24 hr tablet, 300 mg PO QAM #30 t abs 05/03/24 03/02/25 Rx extended release (Wellbutrin XL) alprazolam 0.25 mg tablet (Xanax) 0.25 mg PO TID PRN a nxiety #90 tabs 11/15/24 03/02/25 Rx buspirone 5 mg tablet 5 mg PO BID #60 tabs 12/13/ 5 03/02/25 Rx eszopiclone 2 mg tablet (Lunesta) 1 - 2 mg (0.5 - 1 x 2 mg) PO QHS 12/28/24 02/20/25 Rx PRN insomnia #30 tabs Laboratory Tests 03/02/25 06:11 POC Urine HCG, Qual Negative (Negative) Patient hx anesthesia problems: none Family hx anesthesia problems: none Results Review: All pre-operative results and documents have been reviewed as part of the pre- operative evaluation. [facility] Past Medical History Medical History Encounter for IUD removal Left breast mass Breast asymmetry Elevated ferritin Low TSH level (08/01/24) TSH low at 0.052 with free T4 at 0.89 and T3 total at 1.13 Thyroid charly xidase antibody level 1 on 08/01/2024. Abnormal serum iron level (08/01/24) iron 141 with 53% saturation and ferritin 196 with hemoglobin 15.3 on 08/01/2024. UTI (urinary tract infection) Mixed hyperlipidemia cholesterol 203, triglycerides 154, HDL 48, LDL 128 with ratio 4.2 on 05/30/2022. Cholesterol 215, triglycerides 163, HDL 47, LDL 137 on 08/01/2024. Hirsutism Screening mammogram, encounter for Normal mammogram 08/24/2023. Influenza-like symptoms Acute non-recurrent maxillary sinusitis Chronic pain of right knee BMI 35.0-35.9,adult Obesity (BMI 30-39.9) Cordis all normal at 19.1 on 08/01/2024. Acute bilateral ankle pain (10/15/22) acute bilateral ankle pain after fall 10/15/2022. Acute bilateral knee pain (10/15/22) bilateral knee pain after fall 10/15/2022. COVID-19 (07/13/22) 2nd episode Fibrocystic breast changes of both breasts (~2021) MRI of the breast on 06/03/2022 reveal benign fibrocystic changes with recommendation for annual mammograms. Nocturnal sleep-related eating disorder Pharyngitis (03/16/22) BMI 34.0-34.9,adult Obesity (BMI 30.0-34.9) Encounter for IUD removal 01/20/20 Mirena removal/reinsertion Encounter for IUD insertion 03/06/15 Mirena insertion 01/20/20 Mirena removal/reinsertion Abnormal Pap smear of cervix 07/16/2018 Ascus -hpv Schwannoma of nerve of lower extremity left foot Sleep disturbances Home sleep study 12/02/2021 inconclusive with AHI 3.1. Schedule split night study. COVID-19 (11/27/21) monoclonal antibody infusion. Chronic depression BMI 32.0-32.9,adult Right elbow pain (03/08/21) Dermatofibroma multiple dermatofibroma Hypersomnia BMI 31.0-31.9,adult Cough Acute bronchitis COVID test negative on 08/22/21 . Chest x-ray is normal 08/22/2021 Abscess of right foot Tobacco use 1 pack per week , switched to vaping nicotine Benign schwannoma Left foot. Callus of foot Cellulitis of right foot Surgical History Surgical History History of gynecological procedure (12/06/24) mirena iud removal H/O knee surgery 12/2023 right knee loose body fragment removed History of orthopedic surgery 03/13/16 left foot biopsy History of colposcopy with cervical biopsy 03/09/01 LGSIL, mild dysplasia History of right knee surgery 11/10/00 History of left knee surgery 2013, 02/22/14 left knee Family History Family History Grandparent Diabetes mellitus Family history of malignant neoplasm paternal grandmother--urinary bladder Family history of malignant neoplasm of breast paternal grandmother Father Hypertension Mother Patient's mother is in good health Sibling Patient's brother is in good health Social History Social History Social History: The patient lives in [place] with her 10-year-old daughter. She works at the [employer] in [place]. Smokes about 5 cigarettes a day and has for 20 years. Consumes 2 alcoholic beverages a week. No illicit substance use. She designates her brother Miguel Flores as her surrogate decision maker and she wishes to be a full code. Smoking packs per day: 0.2 Smoking cigarettes per day: 4.0 Years smoked: 20 Smoking pack-years: 4.00 Smoking status: Current every day smoker Tobacco type: e-cigarettes/vaping Alcohol intake: current Drinks per week: 2 Substance use: never Substance use type: does not use Do You Feel Safe in your Home?: Yes Lack of Transportation: No Lack of Food: Never True Current Housing: Decline to Answer Concerned About Future Housing: Decline to Answer Difficulty Paying Gas/Electric Bills: Decline to Answer Difficulty Paying for Meds: Decline to Answer Currently Unemployed: Decline to Answer Education: Decline to Answer Difficulty w/ Childcare or Family Care: Decline to Answer Living arrangements: other Additional living arrangements comments: Occupation/Education: occupation Gender identity (if verbalized by the patient): Female Sexual Orientation (if Verbalized by the Patient): Straight or Heterosexual Spiritual care concerns: Yes Anes - [place] Final PreProcedure Day of Procedure 03/02/25 07:03 Patient weight: obese Heart: regular rate and rhythm Lungs: clear to auscultation Airway: Mallampati scale class II Neurological: alert and oriented Last oral intake: >/= 8 hours ASA classification: III Emergent: no Anesthetic plan: proceed Anesthesia type and monitoring: general ETT and standard monitoring Results Review: All pre-operative results and documents have been reviewed as part of the pre- operative evaluation. Informed Consent: The patient's anesthetic plan and its attendant risks and benefits were discussed with the patient/family/POA. Questions were solicited and answers provided to the satisfaction of the patient/family/POA.
--- NOTE | 2025-03-02 07:21 | WPDHPUPDATE1 ---
History and Physical Update Update Date/Time: 03/02/25 07:21 History and Physical has been reviewed, including an updated exam of the patient. There are NO changes in the patient's condition. Risks, benefits, and alternatives have been discussed and questions answered. Patient agrees to proceed with procedure.
--- NOTE | 2025-03-02 08:00 | S_PTH ---
PATIENT: Nai Edwards LOC: [facility] U#:[id number] AGE/SX: 45/F ROOM: RE03/02/[address]: Agusto Bob MD : 1980 BED: DIS: 03/02/2025 SPEC #: [id number] RECD: 03/02/25 09:27 STATUS: NHI RESulma #: [id number] SOHEILA: 03/02/25 08:[address]: Agusto Bob DEPT: [facility] Surgical RECD BY: Luisa Barclay ENTERED: 03/02/25 09:27 SP TYPE: Surgical OTHR DR: MD Andrea Larson, DO Tissues: A - Ovary Procedures: Hematoxylin and Eosin Stain Gross and Microscopic Level 4
[2025-03-02] MEDS: fentaNYL CITRATE INJ (*CRX) 100 MCG/2 ML VIAL 25 MCG IV PUSH ×8 (08:23→08:44)
[2025-03-02] MEDS: HYDROmorphone HCL INJ (*CRX) 1 MG/ML SYR 0.5 MG IV PUSH ×4 (08:45→09:06)
--- NOTE | 2025-03-02 08:48 | W.PM.PROC2 ---
Procedure Note - Detailed Date of Procedure 03/02/25 Pre-op Diagnosis breast cancer Post-op Diagnosis Same Procedure Performed Robotic assisted bilateral salpingo oophorectomy Surgeon Agusto Bob MD Anesthesia General Findings Tubes and ovaries without abnormality Small fundal uterine fibroid Description of Procedure Patient was prepped and draped in the usual manner this procedure. Abdominal trocar sites were marked and trocars were placed under direct visualization. Findings were noted as above. Using the vessel sealer the infundibulopelvic ligaments were cauterized and cut bilaterally, fallopian tube and uterus ovarian ligaments were also cauterized and cut. Specimens removed without difficulty. There was no significant bleeding at this point the procedure was considered terminated. Gas was allowed to escape and incisions were approximated using 4-0 Monocryl. Estimated Blood Loss 10 Drains No Packing No Pathology Yes Complications No immediate complications Condition Stable Disposition PACU [facility] Billing Surgery - Charge Forward: Surgery Billing
[2025-03-02] MEDS: oxyCODONE HCL (*CRX) 5 MG TAB IR PO (09:50)
== END 2025-03-02 10:26 | disposition home or self-care (01) ==
PROVIDERS: PCP Family Medicine; Visit Provider Obstetrics & Gynecology
PROC: 8E0W4CZ Robotic Assisted Procedure of Trunk Region, Percutaneous Endoscopic Approach (ICD-10-PCS; CPT 49320; principal; 2025-03-02 07:30)
DX: C50.912 Malignant neoplasm of unspecified site of left female breast (principal); D27.0 Benign neoplasm of right ovary; N83.02 Follicular cyst of left ovary; G89.18 Other acute postprocedural pain; E78.2 Mixed hyperlipidemia; G47.9 Sleep disorder, unspecified; F32.A Depression, unspecified; G47.10 Hypersomnia, unspecified; L68.0 Hirsutism; G89.29 Other chronic pain; M25.561 Pain in right knee; F17.290 Nicotine dependence, other tobacco product, uncomplicated; E66.9 Obesity, unspecified; Z68.31 Body mass index [BMI] 31.0-31.9, adult; Z98.890 Other specified postprocedural states; Z80.52 Family history of malignant neoplasm of bladder; Z80.3 Family history of malignant neoplasm of breast
CPT/HCPCS: 58661; S2900; 88305; A9270; J1100; J1171; J1200; J1885; J2003; J2250; J2405; J2704; J3010; J7030; J7120

== ENCOUNTER 2025-04-05 07:10 | Outpatient (CLI) | payer OTHER, BC, SELFPAY ==
[2025-04-05 07:57] LABS: Hematocrit 44.9 % (37.0-47.0); Hemoglobin 15.0 g/dL (12.0-15.0); Immature Granulocyte Percent A 0.2 % (0-0.5); Lymphocytes Absolute Auto 2.10 K/mm3 (0.9-3.2); Mean Corpuscular HGB Conc 33.4 g/dl (32-36); Mean Corpuscular Hemoglobin 29.9 pg (26-34); Mean Corpuscular Volume 89.4 fl (80-100); Nucleated Red Blood Cells Absolute Auto 0.000 K/mm3 (0.0-0.012); Nucleated Red Blood Cells Perc 0.0 % (0.0-0.2); Platelet Count Result 272 k/mm3 (150-375); Red Blood Count 5.02 M/mm3 (4.2-5.4); White Blood Count 5.5 K/mm3 (4.5-10.0)
[2025-04-05 08:16] LABS: Alanine Aminotransferase 109 U/L (6-35); Albumin Level 4.5 g/dL (3.5-5.1); Alkaline Phosphatase 94 U/L (38-126); Anion Gap 8 mmol/L (4-12); Aspartate Amino Transferase 60 U/L (14-36); Bilirubin,Total 0.6 mg/dL (0.2-1.3); Blood Urea Nitrogen 22 mg/dL (7-17); Calcium 9.4 mg/dL (8.4-10.2); Carbon Dioxide 29 mmol/L (22-30); Chloride 102 mmol/L (98-107); Estimated Glomerular Filt Rate > 60; Glucose 107 mg/dL (65-110); Potassium 3.9 mmol/L (3.4-5.0); Sodium 139 mmol/L (137-145); Total Protein 7.7 g/dL (6.3-8.2)
[2025-04-05 08:18] LABS: Iron 95 ug/dL (37-170)
[2025-04-05 08:27] LABS: Percent Iron Saturation 32 % (20-50)
[2025-04-05 08:33] LABS: Free T4 Free Thyroxine 1.11 ng/dL (0.78-2.19)
[2025-04-05 08:38] LABS: INR 0.9; Prothrombin Time 12.7 Seconds (11.1-14.7)
[2025-04-05 08:55] LABS: Thyroid Stimulating Hormone 2.060 uIU/mL (0.465-4.680)
[2025-04-05 08:59] LABS: Ferritin 295.00 ng/mL (6.24-137)
[2025-04-05 09:29] LABS: Hepatitis B Surface Antigen Negative (Negative)
[2025-04-05 09:35] LABS: HAV RESULT Negative (Negative); Hepatitis B Core IgM Result Negative (Negative)
[2025-04-06 10:08] LABS: GGT 260 IU/L (0-60)
== END 2025-04-05 07:11 | disposition home or self-care (01) ==
LOC: ANHLAB 07:12
PROVIDERS: PCP Family Medicine; Visit Provider Nurse Practitioner Family
DX: R79.0 Abnormal level of blood mineral (principal); R79.89 Other specified abnormal findings of blood chemistry; R74.8 Abnormal levels of other serum enzymes
CPT/HCPCS: 36415; 80053; 80074; 82103; 82248; 82390; 82728; 82977; 83540; 83550; 83915; 84439; 84443; 85025; 85610; 86015; 86376

== ENCOUNTER 2025-04-19 08:08 | Outpatient (CLI) | payer OTHER, BC, SELFPAY ==
--- NOTE | ~2025-04-19 | US_ITS ---
ULTRASOUND ABDOMEN LIMITED (RIGHT UPPER QUADRANT) Clinical History: R74.8 - Abnormal levels of other serum enzymes Comparison: None Technique: Right upper quadrant sonography Findings: Liver: Normal size. Echogenic. No intrahepatic biliary ductal dilatation. Normal hepatopedal flow main portal vein. Probable micronodular surface. Common Duct: Normal caliber. 3 mm. Gallbladder: No stones. No wall thickening. No pericholecystic fluid. Pancreas: Obscured by bowel gas. IMPRESSION: 1. Hepatic steatosis and/or hepatocellular disease. Reviewed, dictated and finalized at location R.
== END 2025-04-19 08:09 | disposition home or self-care (01) ==
LOC: GOSHIMG 08:08
PROVIDERS: PCP Internal Medicine Medical Oncology; Visit Provider Nurse Practitioner Family
DX: R74.8 Abnormal levels of other serum enzymes (principal); K76.0 Fatty (change of) liver, not elsewhere classified; K76.89 Other specified diseases of liver
CPT/HCPCS: 76705